=== PATIENT | male | born 1940 | race Caucasian/White ===

== ENCOUNTER → 2017-09-14 | Outpatient (CLI) | payer OTHER ==
[~2017-09-14] MED LIST: ALPR1 PO; DILT300 PO; GLIM4 PO; Keflex500 MG PO; LOSARTAN-HCTZ1 EAC1 PO; Metformin HCl1000 MG PO
== END ==
LOC: LAB 13:53 → LAB SHORT 13:53
DX: E11.621 Type 2 diabetes mellitus with foot ulcer (principal); M86.179 Other acute osteomyelitis, unspecified ankle and foot
CPT/HCPCS: 87070; 87075; 87147; 87205

== ENCOUNTER 2018-06-12 16:09 | Observation (INO) | payer OTHER ==
[~2018-06-12] VITALS: Ht 182.9 cm; Wt 90.7 kg
[~2018-06-12 16:09] MED LIST changes: +DILT180 PO; -DILT300 PO
[2018-06-12 16:37] LABS: BASOPHILS ABSOLUTE AUTO 0.02 K/mm3 (0.00-0.23); BASOPHILS PERCENT AUTO 0 % (0-2); EOSINOPHILS ABSOLUTE AUTO 0.17 K/mm3 (0.00-0.68); EOSINOPHILS PERCENT AUTO 2 % (0-6); Hematocrit 51.7 % (37.0-53.0); Hemoglobin 16.8 g/dL (13.5-17.5); IMMATURE GRAN ABSOLUTE AUTO 0.02 K/mm3 (0.00-0.10); IMMATURE GRAN PERCENT AUTO 0 % (0-1); LYMPHOCYTES ABSOLUTE AUTO 2.87 K/mm3 (0.84-5.20); LYMPHOCYTES PERCENT AUTO 34 % (21-46); MONOCYTES ABSOLUTE AUTO 0.65 K/mm3 (0.16-1.47); MONOCYTES PERCENT AUTO 8 % (4-13); Mean Corpuscular HGB Conc 32.5 g/dL (31.5-36.5); Mean Corpuscular Volume 89 fL (80-100); Mean Platelet Volume 9.9 fL (9.1-12.4); NEUTROPHILS ABSOLUTE AUTO 4.61 K/mm3 (1.96-9.15); NEUTROPHILS PERCENT AUTO 55 % (41-73); Platelet Count 241 K/mm3 (150-400); RDW Coefficient Variation 13.4 % (11.7-14.2); RDW Standard Deviation 43.8 fL (35.1-46.3); White Blood Cell Count 8.34 K/mm3 (4.00-11.30)
[2018-06-12 16:55] LABS: Alanine Aminotransfer (ALT/SGP 21 U/L (12-78); Albumin, Blood 3.9 g/dL (3.4-5.0); Alk Phos 86 U/L (50-136); Anion Gap 10 mmol/L (6-16); Aspartate Aminotrans (AST/SGOT 15 U/L (12-37); Bilirubin, Total 0.3 mg/dL (0.1-1.0); Blood Urea Nitrogen 27 mg/dL (8-24); Bun/Creatinine Ratio 16.3 (12.0-20.0); CO2, Blood 23 mmol/L (21-32); Calcium, Blood 8.9 mg/dL (8.5-10.1); Chloride, Blood 103 mmol/L (98-108); Creatinine, Blood 1.66 mg/dL (0.60-1.20); Globulin, Blood 4.1 g/dL (2.2-4.0); Glomerular Filtration Rate 43 (60-); Glucose, Blood 253 mg/dL (70-99); Sodium, Blood 136 mmol/L (136-145); Troponin I <0.015 ng/mL (0.000-0.040)
[2018-06-12 20:51] LABS: CPK Creatine Kinase 49 U/L (39-308); Troponin I <0.015 ng/mL (0.000-0.040)
[2018-06-13 02:45] LABS: Source, Urine Clean Catch
[2018-06-13 02:47] LABS: Bilirubin, Urine Neg (Neg); Blood, Urine 1+ (Neg); Glucose Qualitative, Urine 4+ (Neg); Ketones, Urine Neg (Neg); Leukocyte Esterase, Urine Neg (Neg); Nitrite, Urine Neg (Neg); Protein, Urine 2+ (Neg); Specific Gravity, Urine 1.015 (1.003-1.022); Urobilinogen, Urine NORM (Normal)
[2018-06-13 02:53] LABS: Appearance, Urine Clear (Clear); Color, Urine Yellow (P-Yellow)
[2018-06-13 02:54] LABS: Bacteria Not Seen /hpf; Red Blood Cells, Urine 0-2 /hpf (0-2); Squamous Epithelial Cells Not Seen /hpf (Few); White Blood Cells, Urine Not Seen /hpf (0-5)
--- NOTE | 2018-06-13 04:46 | NUR ---
SHIFT SUMMARY PT ADMITTED WITH HYPERTENSIVE URGENCY, B/P 180'S/80'S UPON ARRIVAL. ORAL APRESOLINE GIVEN, IV ANTIHYPERTENSIVES GIVEN IN THE ED. PT ALERT AND ORIENTED. UP WITH SBA AND FWW, HAS UNSTEADY GAIT. B/P THIS AM 180'S/90'S, PRN IV APRESOLINE GIVEN. PT HAS NOT SLEPT AT ALL DURING THE NIGHT. WILL CONTINUE TO MONITOR.
[2018-06-13 05:14] LABS: Hematocrit 48.4 % (37.0-53.0); Hemoglobin 15.9 g/dL (13.5-17.5); Mean Corpuscular HGB 28.6 pg (26.0-34.0); Mean Corpuscular HGB Conc 32.9 g/dL (31.5-36.5); Mean Corpuscular Volume 87 fL (80-100); Platelet Count 239 K/mm3 (150-400); RDW Coefficient Variation 13.5 % (11.7-14.2); RDW Standard Deviation 42.7 fL (35.1-46.3); Red Blood Cell Count 5.55 M/mm3 (4.30-5.90); White Blood Cell Count 8.99 K/mm3 (4.00-11.30)
[2018-06-13 05:41] LABS: CPK Creatine Kinase 57 U/L (39-308); Troponin I <0.015 ng/mL (0.000-0.040)
[2018-06-13 05:51] LABS: Albumin, Blood 3.5 g/dL (3.4-5.0); Bilirubin, Total 0.5 mg/dL (0.1-1.0); Bun/Creatinine Ratio 18.6 (12.0-20.0); Calcium, Blood 8.9 mg/dL (8.5-10.1); Creatinine, Blood 1.45 mg/dL (0.60-1.20); Globulin, Blood 3.5 g/dL (2.2-4.0); Potassium, Blood 3.5 mmol/L (3.5-5.5)
--- NOTE | 2018-06-13 10:51 | NUR ---
PATIENT DID NOT EAT BREAKFAST THIS SHIFT DUE TO BEING NPO AT THIS TIME.
--- NOTE | 2018-06-13 11:56 | NUR ---
DISCHARGE DISCHARGE MEDICATIONS AND INSTRUCTIONS EXPLAINED TO PATIENT AND FAMILY. THEY STATED UNDERSTANDING. IV REMOVED WITHOUT DIFFICULTY. BELONGINGS WITH PATIENT. PATIENT TRANSFERED TO PRIVATE VEHICLE VIA WHEELCHAIR.
[2018-06-13 12:58] LABS: CPK Creatine Kinase 60 U/L (39-308)
== END 2018-06-13 14:49 | disposition home or self-care (01) ==
LOC: ER 16:09 → MEDS 16:10 → ENPENDDIS 06-13 14:36 → MEDS 06-13 14:49
PROVIDERS: Emergency Medicine; ADMIT Internal Medicine
DX: I16.0 Hypertensive urgency (principal); R07.89 Other chest pain; E11.22 Type 2 diabetes mellitus with diabetic chronic kidney disease; I12.9 Hypertensive chronic kidney disease with stage 1 through stage 4 chronic kidney disease, or unspecified chronic kidney disease; N18.3 Chronic kidney disease, stage 3 (moderate); E66.9 Obesity, unspecified; F41.9 Anxiety disorder, unspecified; Z79.899 Other long term (current) drug therapy; Z68.27 Body mass index [BMI] 27.0-27.9, adult
CPT/HCPCS: 36415; 71046; 78452; 80053; 81001; 82550; 82947; 84484; 85025; 85027; 93005; 93010; 93017; 93306; 96374; 96375; 96376; 99285-25; A9500; G0378; J0360; J0706; J1650; J2785

== ENCOUNTER 2022-06-24 17:57 | Emergency (ER) | payer OTHER ==
[~2022-06-24] VITALS: Ht 182.9 cm; Wt 122.5 kg
[2022-06-24 18:30] LABS: BASOPHILS ABSOLUTE AUTO 0.03 K/mm3 (0.00-0.23); BASOPHILS PERCENT AUTO 0 % (0-2); EOSINOPHILS ABSOLUTE AUTO 0.29 K/mm3 (0.00-0.68); EOSINOPHILS PERCENT AUTO 4 % (0-6); Hematocrit 47.1 % (37.0-53.0); Hemoglobin 15.2 g/dL (13.5-17.5); IMMATURE GRAN ABSOLUTE AUTO 0.05 K/mm3 (0.00-0.10); IMMATURE GRAN PERCENT AUTO 1 % (0-1); LYMPHOCYTES ABSOLUTE AUTO 2.72 K/mm3 (0.84-5.20); LYMPHOCYTES PERCENT AUTO 35 % (21-46); MONOCYTES ABSOLUTE AUTO 0.62 K/mm3 (0.16-1.47); MONOCYTES PERCENT AUTO 8 % (4-13); Mean Corpuscular HGB 29.7 pg (26.0-34.0); Mean Corpuscular HGB Conc 32.3 g/dL (31.5-36.5); Mean Corpuscular Volume 92 fL (80-100); Mean Platelet Volume 10.3 fL (9.1-12.4); NEUTROPHILS ABSOLUTE AUTO 4.11 K/mm3 (1.96-9.15); NEUTROPHILS PERCENT AUTO 53 % (41-73); Platelet Count 183 K/mm3 (150-400); RDW Coefficient Variation 15.9 % (11.7-14.2); RDW Standard Deviation 53.9 fL (35.1-46.3); Red Blood Cell Count 5.12 M/mm3 (4.30-5.90); White Blood Cell Count 7.82 K/mm3 (4.00-11.30)
[2022-06-24 18:49] LABS: Albumin/Globulin Ratio 0.8 (0.8-1.8); Bilirubin, Total 0.6 mg/dL (0.1-1.0); Bun/Creatinine Ratio 15.8 (12.0-20.0); Calcium, Blood 8.7 mg/dL (8.5-10.1); Creatinine, Blood 1.71 mg/dL (0.60-1.20); Globulin, Blood 3.8 g/dL (2.2-4.0); Potassium, Blood 5.5 mmol/L (3.5-5.5); Total Protein, Blood 6.8 g/dL (6.4-8.2)
[2022-06-24] MEDS ORDERED: LOSA50 PO (20:26)
[2022-06-24] MEDS ORDERED: TAMSULOSIN HCL0.4 M1 PO (20:27)
[2022-06-24] MEDS ORDERED: FUROSEMIDE40 MG PO (20:27)
[2022-06-24] MEDS ORDERED: DILTIAZEM 24HR240 M3 PO (20:28)
[2022-06-24] MEDS ORDERED: BASAGLAR K100 UNIT/3 SC (20:28)
[2022-06-24] MEDS ORDERED: PIOGLITAZONE HC45 MG PO (20:29)
[2022-06-25] MEDS ORDERED: DOXY100 PO (16:51)
== END 2022-06-24 22:57 | disposition home or self-care (01) ==
LOC: ER 17:57
PROVIDERS: Physician Assistant
DX: R06.02 Shortness of breath (principal); R53.83 Other fatigue; E11.9 Type 2 diabetes mellitus without complications
CPT/HCPCS: 36415; 71046; 80053; 83880; 84484; 85025; 93005; 93010; 99285-25

== ENCOUNTER 2022-06-25 15:35 | Emergency (ER) | payer OTHER ==
[~2022-06-25] VITALS: Ht 182.9 cm; Wt 127.0 kg
[~2022-06-25 15:35] MED LIST changes: +BASAGLAR K100 UNIT/3 SC; +DILTIAZEM 24HR240 M3 PO; +FUROSEMIDE40 MG PO; +LOSA50 PO; +PIOGLITAZONE HC45 MG PO; +TAMSULOSIN HCL0.4 M1 PO
[2022-06-25] MEDS ORDERED: DOXY100 PO (16:51)
== END 2022-06-25 17:12 | disposition home or self-care (01) ==
LOC: ER 15:35
DX: J18.9 Pneumonia, unspecified organism (principal); E11.9 Type 2 diabetes mellitus without complications
CPT/HCPCS: 99283; A9270

== ENCOUNTER 2022-07-25 16:04 | Emergency (ER) | payer OTHER ==
[~2022-07-25] VITALS: Ht 182.9 cm; Wt 136.1 kg
[~2022-07-25 16:04] MED LIST changes: +DOXY100 PO
[2022-07-25 17:01] LABS: BASOPHILS ABSOLUTE AUTO 0.04 K/mm3 (0.00-0.23); BASOPHILS PERCENT AUTO 1 % (0-2); EOSINOPHILS ABSOLUTE AUTO 0.23 K/mm3 (0.00-0.68); EOSINOPHILS PERCENT AUTO 3 % (0-6); Hematocrit 46.9 % (37.0-53.0); Hemoglobin 14.9 g/dL (13.5-17.5); IMMATURE GRAN ABSOLUTE AUTO 0.04 K/mm3 (0.00-0.10); IMMATURE GRAN PERCENT AUTO 1 % (0-1); LYMPHOCYTES ABSOLUTE AUTO 2.23 K/mm3 (0.84-5.20); LYMPHOCYTES PERCENT AUTO 31 % (21-46); MONOCYTES ABSOLUTE AUTO 0.59 K/mm3 (0.16-1.47); MONOCYTES PERCENT AUTO 8 % (4-13); Mean Corpuscular HGB 29.3 pg (26.0-34.0); Mean Corpuscular HGB Conc 31.8 g/dL (31.5-36.5); Mean Corpuscular Volume 92 fL (80-100); Mean Platelet Volume 10.2 fL (9.1-12.4); NEUTROPHILS ABSOLUTE AUTO 4.19 K/mm3 (1.96-9.15); NEUTROPHILS PERCENT AUTO 57 % (41-73); Platelet Count 194 K/mm3 (150-400); RDW Coefficient Variation 15.6 % (11.7-14.2); RDW Standard Deviation 53.8 fL (35.1-46.3); Red Blood Cell Count 5.08 M/mm3 (4.30-5.90); White Blood Cell Count 7.32 K/mm3 (4.00-11.30)
[2022-07-25 17:28] LABS: Magnesium, Blood 2.2 mg/dL (1.6-2.4)
[2022-07-25 17:30] LABS: Albumin, Blood 2.9 g/dL (3.4-5.0); Albumin/Globulin Ratio 0.8 (0.8-1.8); Bilirubin, Total 0.4 mg/dL (0.1-1.0); Bun/Creatinine Ratio 18.8 (12.0-20.0); Calcium, Blood 8.6 mg/dL (8.5-10.1); Creatinine, Blood 1.81 mg/dL (0.60-1.20); Globulin, Blood 3.7 g/dL (2.2-4.0); Potassium, Blood 4.1 mmol/L (3.5-5.5); Total Protein, Blood 6.6 g/dL (6.4-8.2)
[2022-07-25 19:54] LABS: Source, Urine Clean Catch
[2022-07-25 19:58] LABS: Bilirubin, Urine Neg (Neg); Blood, Urine 1+ (Neg); Glucose Qualitative, Urine 3+ (Neg); Ketones, Urine Neg (Neg); Leukocyte Esterase, Urine Neg (Neg); Nitrite, Urine Neg (Neg); Protein, Urine 3+ (Neg); Urobilinogen, Urine NORM (Normal)
[2022-07-25 20:05] LABS: Appearance, Urine Clear (Clear); Color, Urine Yellow (P-Yellow)
[2022-07-25 20:07] LABS: Bacteria Rare /hpf; Red Blood Cells, Urine 0-2 /hpf (0-2); Squamous Epithelial Cells Rare /hpf (Few)
== END 2022-07-25 21:00 | disposition home or self-care (01) ==
LOC: ER 16:04
PROVIDERS: Physician Assistant
DX: I70.8 Atherosclerosis of other arteries (principal); E11.9 Type 2 diabetes mellitus without complications; Z79.899 Other long term (current) drug therapy; Z79.4 Long term (current) use of insulin
CPT/HCPCS: 71046; 71275; 80053; 81001; 83735; 85025; 93005; 93010; 99284-25; Q9967

== ENCOUNTER 2022-08-08 16:24 | Emergency (ER) | payer OTHER ==
[~2022-08-08] VITALS: Ht 182.9 cm; Wt 136.1 kg
[2022-08-08 17:08] LABS: BASOPHILS ABSOLUTE AUTO 0.03 K/mm3 (0.00-0.23); BASOPHILS PERCENT AUTO 0 % (0-2); EOSINOPHILS PERCENT AUTO 5 % (0-6); Hematocrit 43.7 % (37.0-53.0); Hemoglobin 14.4 g/dL (13.5-17.5); IMMATURE GRAN ABSOLUTE AUTO 0.04 K/mm3 (0.00-0.10); IMMATURE GRAN PERCENT AUTO 1 % (0-1); LYMPHOCYTES ABSOLUTE AUTO 2.09 K/mm3 (0.84-5.20); LYMPHOCYTES PERCENT AUTO 27 % (21-46); MONOCYTES ABSOLUTE AUTO 0.56 K/mm3 (0.16-1.47); MONOCYTES PERCENT AUTO 7 % (4-13); Mean Corpuscular HGB 30.1 pg (26.0-34.0); Mean Corpuscular Volume 91 fL (80-100); Mean Platelet Volume 10.2 fL (9.1-12.4); NEUTROPHILS ABSOLUTE AUTO 4.74 K/mm3 (1.96-9.15); NEUTROPHILS PERCENT AUTO 60 % (41-73); Platelet Count 199 K/mm3 (150-400); RDW Coefficient Variation 15.6 % (11.7-14.2); RDW Standard Deviation 52.3 fL (35.1-46.3); Red Blood Cell Count 4.79 M/mm3 (4.30-5.90); White Blood Cell Count 7.86 K/mm3 (4.00-11.30)
[2022-08-08 17:21] LABS: Albumin, Blood 3.2 g/dL (3.4-5.0); Albumin/Globulin Ratio 0.9 (0.8-1.8); Bilirubin, Total 0.3 mg/dL (0.1-1.0); Bun/Creatinine Ratio 17.9 (12.0-20.0); Creatinine, Blood 1.84 mg/dL (0.60-1.20); Globulin, Blood 3.5 g/dL (2.2-4.0); Potassium, Blood 3.6 mmol/L (3.5-5.5); Total Protein, Blood 6.7 g/dL (6.4-8.2)
[2022-08-08 18:30] VITALS: BP 199/74
== END 2022-08-08 20:12 | disposition home or self-care (01) ==
LOC: ER 16:24
PROVIDERS: Physician Assistant
DX: R60.0 Localized edema (principal); I89.0 Lymphedema, not elsewhere classified; E11.22 Type 2 diabetes mellitus with diabetic chronic kidney disease; N18.9 Chronic kidney disease, unspecified; E66.01 Morbid (severe) obesity due to excess calories; Z79.4 Long term (current) use of insulin; Z79.899 Other long term (current) drug therapy; Z68.41 Body mass index [BMI] 40.0-44.9, adult
CPT/HCPCS: 36415; 51702; 51798; 71046; 80053; 83880; 84484; 85025; 93005; 93010; 96374-59; 99284-25; J1940

== ENCOUNTER 2022-08-15 11:49 | Emergency (ER) | payer OTHER ==
[~2022-08-15] VITALS: Ht 182.9 cm; Wt 136.1 kg
[2022-08-15 12:40] VITALS: BP 153/70
[2022-08-15 15:27] LABS: Source, Urine Clean Catch
[2022-08-15 15:32] LABS: Bilirubin, Urine Neg (Neg); Blood, Urine 4+ (Neg); Glucose Qualitative, Urine 1+ (Neg); Ketones, Urine Neg (Neg); Leukocyte Esterase, Urine 3+ (Neg); Nitrite, Urine Neg (Neg); Protein, Urine 1+ (Neg); Specific Gravity, Urine 1.015 (1.003-1.022); Urobilinogen, Urine NORM (Normal)
[2022-08-15 16:15] LABS: Appearance, Urine Hazy (Clear); Color, Urine Pale Yellow (P-Yellow)
[2022-08-15 16:20] LABS: Red Blood Cells, Urine 0-2 /hpf (0-2); Squamous Epithelial Cells Rare /hpf (Few)
[2022-08-15 16:21] LABS: Bacteria Mod /hpf; Mucus Light (0-Heavy)
[2022-08-15] MEDS ORDERED: SULTRIDS PO (16:28)
== END 2022-08-15 16:49 | disposition home or self-care (01) ==
LOC: ER 11:49
PROVIDERS: Student in an Organized Health Care Education/Training Program
DX: T83.511A Infection and inflammatory reaction due to indwelling urethral catheter, initial encounter (principal); T83.84XA Pain due to genitourinary prosthetic devices, implants and grafts, initial encounter; N39.0 Urinary tract infection, site not specified; E11.22 Type 2 diabetes mellitus with diabetic chronic kidney disease; N18.9 Chronic kidney disease, unspecified; Y84.8 Other medical procedures as the cause of abnormal reaction of the patient, or of later complication, without mention of misadventure at the time of the procedure; Z79.4 Long term (current) use of insulin; Z79.899 Other long term (current) drug therapy
CPT/HCPCS: 51798; 81001; 87077; 87086; 87186; 99283; A9270

== ENCOUNTER → 2022-09-03 | Outpatient (CLI) | payer OTHER ==
[~2022-09-03] MED LIST changes: +SULTRIDS PO
[2022-09-03 16:46] LABS: BASOPHILS ABSOLUTE AUTO 0.03 K/mm3 (0.00-0.23); BASOPHILS PERCENT AUTO 0 % (0-2); EOSINOPHILS ABSOLUTE AUTO 0.18 K/mm3 (0.00-0.68); EOSINOPHILS PERCENT AUTO 2 % (0-6); Hematocrit 44.7 % (37.0-53.0); Hemoglobin 14.4 g/dL (13.5-17.5); IMMATURE GRAN ABSOLUTE AUTO 0.03 K/mm3 (0.00-0.10); IMMATURE GRAN PERCENT AUTO 0 % (0-1); LYMPHOCYTES ABSOLUTE AUTO 2.18 K/mm3 (0.84-5.20); LYMPHOCYTES PERCENT AUTO 29 % (21-46); MONOCYTES ABSOLUTE AUTO 0.56 K/mm3 (0.16-1.47); MONOCYTES PERCENT AUTO 7 % (4-13); Mean Corpuscular HGB 29.9 pg (26.0-34.0); Mean Corpuscular HGB Conc 32.2 g/dL (31.5-36.5); Mean Corpuscular Volume 93 fL (80-100); Mean Platelet Volume 10.4 fL (9.1-12.4); NEUTROPHILS ABSOLUTE AUTO 4.54 K/mm3 (1.96-9.15); NEUTROPHILS PERCENT AUTO 60 % (41-73); Platelet Count 193 K/mm3 (150-400); RDW Coefficient Variation 15.6 % (11.7-14.2); RDW Standard Deviation 53.4 fL (35.1-46.3); Red Blood Cell Count 4.81 M/mm3 (4.30-5.90); White Blood Cell Count 7.52 K/mm3 (4.00-11.30)
[2022-09-03 18:23] LABS: Alanine Aminotransfer (ALT/SGP 21 U/L (12-78); Albumin, Blood 3.4 g/dL (3.4-5.0); Albumin/Globulin Ratio 0.9 (0.8-1.8); Alk Phos 89 U/L (50-136); Anion Gap 5 mmol/L (6-16); Aspartate Aminotrans (AST/SGOT 14 U/L (12-37); Bilirubin, Total 0.3 mg/dL (0.1-1.0); Blood Urea Nitrogen 29 mg/dL (8-24); Bun/Creatinine Ratio 18.7 (12.0-20.0); CHOL/HDL RATIO 3.7; CO2, Blood 25 mmol/L (21-32); Calcium, Blood 9.2 mg/dL (8.5-10.1); Chloride, Blood 103 mmol/L (98-108); Cholesterol 191 mg/dL (50-200); Creatinine, Blood 1.55 mg/dL (0.60-1.20); Globulin, Blood 3.7 g/dL (2.2-4.0); Glomerular Filtration Rate 44 (60-); Glucose, Blood 140 mg/dL (70-99); HDL Cholesterol 52 mg/dL (>39); LDL/HDL RATIO 2.3; Low Density Lipoprotein Chol 121 mg/dL (0-110); Potassium, Blood 3.8 mmol/L (3.5-5.5); Sodium, Blood 133 mmol/L (136-145); Total Protein, Blood 7.1 g/dL (6.4-8.2); Triglycerides 88 mg/dL (30-160); Very Low Density Lipoprot Chol 18 mg/dL (6-32)
== END | disposition home or self-care (01) ==
LOC: LAB SHORT 15:10 → LAB 15:10
PROVIDERS: Family Medicine
DX: I10 Essential (primary) hypertension (principal); E11.9 Type 2 diabetes mellitus without complications
CPT/HCPCS: 80053; 80061; 83036; 85025

== ENCOUNTER 2022-11-04 08:27 | Observation (INO) | payer OTHER ==
[~2022-11-04] VITALS: Ht 182.9 cm; Wt 127.5 kg
[2022-11-04 09:03] LABS: BASOPHILS ABSOLUTE AUTO 0.02 K/mm3 (0.00-0.23); BASOPHILS PERCENT AUTO 0 % (0-2); EOSINOPHILS ABSOLUTE AUTO 0.19 K/mm3 (0.00-0.68); EOSINOPHILS PERCENT AUTO 2 % (0-6); Hematocrit 42.6 % (37.0-53.0); Hemoglobin 13.6 g/dL (13.5-17.5); IMMATURE GRAN ABSOLUTE AUTO 0.03 K/mm3 (0.00-0.10); IMMATURE GRAN PERCENT AUTO 0 % (0-1); LYMPHOCYTES ABSOLUTE AUTO 2.06 K/mm3 (0.84-5.20); LYMPHOCYTES PERCENT AUTO 25 % (21-46); MONOCYTES PERCENT AUTO 9 % (4-13); Mean Corpuscular HGB 29.2 pg (26.0-34.0); Mean Corpuscular HGB Conc 31.9 g/dL (31.5-36.5); Mean Corpuscular Volume 92 fL (80-100); Mean Platelet Volume 10.7 fL (9.1-12.4); NEUTROPHILS ABSOLUTE AUTO 5.18 K/mm3 (1.96-9.15); NEUTROPHILS PERCENT AUTO 63 % (41-73); Platelet Count 182 K/mm3 (150-400); RDW Standard Deviation 50.4 fL (35.1-46.3); Red Blood Cell Count 4.65 M/mm3 (4.30-5.90); White Blood Cell Count 8.18 K/mm3 (4.00-11.30)
[2022-11-04 09:16] LABS: Albumin, Blood 2.8 g/dL (3.4-5.0); Albumin/Globulin Ratio 0.8 (0.8-1.8); Bilirubin, Total 0.3 mg/dL (0.1-1.0); Bun/Creatinine Ratio 18.1 (12.0-20.0); Calcium, Blood 8.5 mg/dL (8.5-10.1); Creatinine, Blood 1.82 mg/dL (0.60-1.20); Globulin, Blood 3.4 g/dL (2.2-4.0); Potassium, Blood 3.6 mmol/L (3.5-5.5); Total Protein, Blood 6.2 g/dL (6.4-8.2)
[2022-11-04] MEDS ORDERED: POTA10T PO (12:21)
[2022-11-04] MEDS ORDERED: INSULANPEN SC (12:25)
[2022-11-04 13:34] LABS: Source, Urine Clean Catch
[2022-11-04 14:10] LABS: Bilirubin, Urine Neg (Neg); Blood, Urine 1+ (Neg); Glucose Qualitative, Urine 1+ (Neg); Ketones, Urine Neg (Neg); Leukocyte Esterase, Urine Neg (Neg); Nitrite, Urine Neg (Neg); Protein, Urine 3+ (Neg); Urobilinogen, Urine NORM (Normal)
[2022-11-04 14:45] LABS: Color, Urine Pale Yellow (P-Yellow)
[2022-11-04 14:46] LABS: Appearance, Urine Hazy (Clear)
[2022-11-04 14:47] LABS: Red Blood Cells, Urine 0-2 /hpf (0-2)
[2022-11-04 14:48] LABS: Amorphous Light (0-Heavy); Bacteria Mod /hpf; Mucus Mod (0-Heavy); Squamous Epithelial Cells Rare /hpf (Few)
[2022-11-04 15:07] VITALS: BP 149/61
--- NOTE | 2022-11-04 18:27 | NUR ---
PATIENT ADMITTED THIS AFTERNOON, A/OX4 AND ABLE TO TRANSFER WITH FWW AND 1 ASSIST TO BED. MUTLIPLE SKIN ISSUES INCLUDING PRESSURE SORES TO BUTTOCKS, PICS TAKEN AND PLACED ON CHART. VSS, ON RA. CONTINUOUT BIOX IN ROOM. CONTINENT AND USING URINAL TO VOID. DENIES ANY CP OR PRESSURE SINCE ADMIT. REPORTS INCREASE IN L SIDED WEAKNESS HAS RESOLVED AND HE FEELS HE IS AT HIS BASELINE. ACHS BLOOD SUGARS, COVERAGE PER SLIDING SCALE. COOPERATIVE WITH CARE AND ABLE TO MAKE NEEDS KNOWN.
[2022-11-04 19:35] VITALS: BP 176/62
[2022-11-04 21:48] VITALS: BP 175/68
[2022-11-04 21:49] VITALS: BP 125/75
[2022-11-05 02:28] VITALS: BP 175/54
--- NOTE | 2022-11-05 05:04 | NUR ---
SHIFT SUMMARY VSS, HTN NOTED BUT BELOW SET PERAMTERS OF >180 SBP. 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 PT SLEPT ON AND OFF T/O THE NIGHT. PT VOIDING W/ NO DIFFICULTY. NO BMS NOTED. MINIMAL PO INTAKE NOTED. PT TURNED Q2 AND EDUCATED ABOUT SKIN CARE FOR WOUND ON BUTTOX. NO CHANGES IN NEURO STATUS NOTED. PT STATES HE FEELS VERY WELL, STRONG, AND THAT HE IS HAPPY WITH HOW HE FEELS. NO ACUTE EVENTS T/O THE NIGHT. PLAN FOR PT TO BE EVALUATED TODAY AND POSSIBLE D/C. THE PAIENT IS CURRENTLY RESTING, IN NO DISTRESS, CALL LIGHT IN REACH
[2022-11-05 05:57] LABS: BASOPHILS ABSOLUTE AUTO 0.02 K/mm3 (0.00-0.23); BASOPHILS PERCENT AUTO 0 % (0-2); EOSINOPHILS ABSOLUTE AUTO 0.23 K/mm3 (0.00-0.68); EOSINOPHILS PERCENT AUTO 3 % (0-6); Hematocrit 40.5 % (37.0-53.0); IMMATURE GRAN ABSOLUTE AUTO 0.03 K/mm3 (0.00-0.10); IMMATURE GRAN PERCENT AUTO 0 % (0-1); LYMPHOCYTES ABSOLUTE AUTO 1.89 K/mm3 (0.84-5.20); LYMPHOCYTES PERCENT AUTO 27 % (21-46); MONOCYTES ABSOLUTE AUTO 0.64 K/mm3 (0.16-1.47); MONOCYTES PERCENT AUTO 9 % (4-13); Mean Corpuscular HGB 29.3 pg (26.0-34.0); Mean Corpuscular HGB Conc 32.1 g/dL (31.5-36.5); Mean Corpuscular Volume 91 fL (80-100); Mean Platelet Volume 10.3 fL (9.1-12.4); NEUTROPHILS ABSOLUTE AUTO 4.23 K/mm3 (1.96-9.15); NEUTROPHILS PERCENT AUTO 60 % (41-73); Platelet Count 172 K/mm3 (150-400); RDW Coefficient Variation 14.6 % (11.7-14.2); RDW Standard Deviation 49.6 fL (35.1-46.3); Red Blood Cell Count 4.43 M/mm3 (4.30-5.90); White Blood Cell Count 7.04 K/mm3 (4.00-11.30)
[2022-11-05 06:18] LABS: Albumin, Blood 2.6 g/dL (3.4-5.0); Albumin/Globulin Ratio 0.8 (0.8-1.8); Bilirubin, Total 0.3 mg/dL (0.1-1.0); Bun/Creatinine Ratio 17.3 (12.0-20.0); Calcium, Blood 8.3 mg/dL (8.5-10.1); Creatinine, Blood 1.68 mg/dL (0.60-1.20); Globulin, Blood 3.2 g/dL (2.2-4.0); Potassium, Blood 3.8 mmol/L (3.5-5.5); Total Protein, Blood 5.8 g/dL (6.4-8.2)
[2022-11-05 08:27] VITALS: BP 112/82
--- NOTE | 2022-11-05 14:05 | NUR ---
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 BARRIER CREAM AND BORDERED FOAM APPLIED. PT REPORTS SLEEPING IN RECLINER AT HOME. HE REPORTS A DIFFICULT TIME CLEANING AFTER BM. EDUCATION ON BIDET, USE OF A BARRIER CREAM AT HOME, A PRESSURE RELIEF SURFACE SUCH A ROHO OR WAFFLE CUSHION AND OFFLOADING PROVIDED. PT VERBALIZED UNDERSTANDING.
--- NOTE | 2022-11-05 14:56 | NUR ---
SHIFT SUMMARY: PATIENT IS A&OX4 BUT HAS MUMBLED SPEECH. VS ARE WNL AND IS ON RA. PATIENT IS A SBA WITH FWW AND GAIT BELT TO STAND/PIVIOT. WOUND CARE WAS CONSULTED ON PATIENTS COCCYX WOUND AND HAS A DRESSING IN PLACE THAT IS C/D/I. PHYSICAL THERAPY WORKED WITH PATIENT TODAY AND TOLERATED IT WELL. NO CHANGES IN NEURO STATUS NOTED. PATIENT USES URNAL AND CALLS APPROPRIATELY FOR WHEN HE NEEDS HELP. SON WHO IS HIS CAREGIVER WAS AT BEDSIDE FOR MAJORITY OF THE SHIFT TODAY. HE IS TOLERATING PO INTAKE AND IS PASSING GAS. PATIENT IS CURRENTLY RESTING IN BED, AND IN NO DISTRESS WITH CALL LIGHT IN REACH. THE PLAN IS TO COORDINATE HOME HEALTH AND WOUND CARE FOR AT HOME THEN POSSIBLY DISCHARGE TOMORROW IF STILL APPROPRIATE.
--- NOTE | 2022-11-05 15:02 | NUR ---
PATIENT AND PATIENTS SON WERE EDUCATED ON IGNITION SOURCES AND RISK OF INJURY WHEN OXYGEN IS IN USE. BOTH VERBALIZED UNDERSTANDING OF EDUCATION AND HAD NO FURTHER QUESTIONS AT THIS TIME.
[2022-11-05 17:15] VITALS: BP 175/55
[2022-11-05 19:17] VITALS: BP 158/59
--- NOTE | 2022-11-06 04:12 | NUR ---
SHIFT SUMMARY. SHIFT HAS BEEN UNREMARKABLE. NO COMLAINTS OF PAIN. AOX3-4, PLEASANT, COOPERATIVE WITH CARE. MUMBLES WHEN SPEAKING. IS SATTING WELL ON ROOM AIR WHILE AWAKE, OCCASIONALLY DIPS DOWN INTO LOW 80S WHILE SLEEPING FOR WHICH I APPLIED 2 L 02 AFTER WHICH TIME HIS SATURATIONS HAVE REMAINED UP. PT HAS SLEPT THROUGH MOST OF EVENING AND MORNING. CALLS APPROPRIATELY. BED LOCKED IN LOWEST POSITION. CALL LIGHT LEFT WITHIN REACH.
[2022-11-06 05:46] VITALS: BP 133/59
[2022-11-06 05:51] LABS: BASOPHILS ABSOLUTE AUTO 0.03 K/mm3 (0.00-0.23); BASOPHILS PERCENT AUTO 0 % (0-2); EOSINOPHILS ABSOLUTE AUTO 0.26 K/mm3 (0.00-0.68); EOSINOPHILS PERCENT AUTO 4 % (0-6); Hematocrit 39.3 % (37.0-53.0); Hemoglobin 12.7 g/dL (13.5-17.5); IMMATURE GRAN ABSOLUTE AUTO 0.03 K/mm3 (0.00-0.10); IMMATURE GRAN PERCENT AUTO 0 % (0-1); LYMPHOCYTES ABSOLUTE AUTO 1.89 K/mm3 (0.84-5.20); LYMPHOCYTES PERCENT AUTO 27 % (21-46); MONOCYTES ABSOLUTE AUTO 0.68 K/mm3 (0.16-1.47); MONOCYTES PERCENT AUTO 10 % (4-13); Mean Corpuscular HGB 29.8 pg (26.0-34.0); Mean Corpuscular HGB Conc 32.3 g/dL (31.5-36.5); Mean Corpuscular Volume 92 fL (80-100); Mean Platelet Volume 10.3 fL (9.1-12.4); NEUTROPHILS ABSOLUTE AUTO 4.14 K/mm3 (1.96-9.15); NEUTROPHILS PERCENT AUTO 59 % (41-73); Platelet Count 178 K/mm3 (150-400); RDW Coefficient Variation 14.8 % (11.7-14.2); RDW Standard Deviation 50.3 fL (35.1-46.3); Red Blood Cell Count 4.26 M/mm3 (4.30-5.90); White Blood Cell Count 7.03 K/mm3 (4.00-11.30)
[2022-11-06 06:21] LABS: Calcium, Blood 8.3 mg/dL (8.5-10.1); Creatinine, Blood 1.65 mg/dL (0.60-1.20); Potassium, Blood 3.8 mmol/L (3.5-5.5)
[2022-11-06 07:54] VITALS: BP 161/68
[2022-11-06] MEDS ORDERED: AMOXIL PO (13:37)
--- NOTE | 2022-11-06 15:54 | NUR ---
DISCHARGE SUMMARY PATIENT WITH NO ACUTE ISSUES TODAY. SONS AT BEDSIDE. PATIENT STATES HE IS ANXIOUS TO GO HOME. PATIENT MEDICATION AND EDUCATION PACKET PRINTED AND REVIEWED WITH PATIENT AND SON. ALL QUESTIONS ANSWERED. CONSENTS SIGNED. PATIENT LEFT FLOOR VIA WHEELCHAIR WITH LUIS ENRIQUE HENDERSON AT 1417, TO [facility] WHERE SON WILL TRANSPORT PATIENT HOME VIA PRIVATE VEHICLE.
[2022-11-06 20:06] LABS: HEMOGLOBIN A1C 6.9 % (4.8-5.6)
== END 2022-11-06 14:19 | disposition home health service (06) ==
LOC: ER 08:27 → MEDS 08:28
PROVIDERS: Student in an Organized Health Care Education/Training Program; ADMIT Hospitalist
DX: G45.9 Transient cerebral ischemic attack, unspecified (principal); R07.89 Other chest pain; R60.0 Localized edema; L89.329 Pressure ulcer of left buttock, unspecified stage; I13.0 Hypertensive heart and chronic kidney disease with heart failure and stage 1 through stage 4 chronic kidney disease, or unspecified chronic kidney disease; E11.22 Type 2 diabetes mellitus with diabetic chronic kidney disease; N18.30 Chronic kidney disease, stage 3 unspecified; I50.30 Unspecified diastolic (congestive) heart failure; I48.91 Unspecified atrial fibrillation; Z79.4 Long term (current) use of insulin; Z79.899 Other long term (current) drug therapy
CPT/HCPCS: 36415; 70450; 80048; 80053; 81001; 82947; 83036; 84484; 85025; 93005; 93010; 94762; 96372; 96374; 97116; 97161; 97166; 97530; 99285-25; A9270; G0378; J1644; J1815; J1940

== ENCOUNTER → 2022-11-13 | Outpatient (CLI) | payer OTHER ==
[~2022-11-13] MED LIST changes: +AMOXIL PO; +INSULANPEN SC; +POTA10T PO
[2022-11-13 15:35] LABS: BASOPHILS ABSOLUTE AUTO 0.02 K/mm3 (0.00-0.23); BASOPHILS PERCENT AUTO 0 % (0-2); EOSINOPHILS ABSOLUTE AUTO 0.28 K/mm3 (0.00-0.68); EOSINOPHILS PERCENT AUTO 3 % (0-6); Hematocrit 43.8 % (37.0-53.0); IMMATURE GRAN ABSOLUTE AUTO 0.04 K/mm3 (0.00-0.10); IMMATURE GRAN PERCENT AUTO 0 % (0-1); LYMPHOCYTES ABSOLUTE AUTO 2.59 K/mm3 (0.84-5.20); LYMPHOCYTES PERCENT AUTO 29 % (21-46); MONOCYTES ABSOLUTE AUTO 0.64 K/mm3 (0.16-1.47); MONOCYTES PERCENT AUTO 7 % (4-13); Mean Corpuscular HGB 29.5 pg (26.0-34.0); Mean Corpuscular Volume 92 fL (80-100); Mean Platelet Volume 10.7 fL (9.1-12.4); NEUTROPHILS ABSOLUTE AUTO 5.36 K/mm3 (1.96-9.15); NEUTROPHILS PERCENT AUTO 60 % (41-73); Platelet Count 197 K/mm3 (150-400); RDW Coefficient Variation 14.7 % (11.7-14.2); RDW Standard Deviation 50.6 fL (35.1-46.3); Red Blood Cell Count 4.74 M/mm3 (4.30-5.90); White Blood Cell Count 8.93 K/mm3 (4.00-11.30)
[2022-11-13 21:07] LABS: Albumin, Blood 3.2 g/dL (3.4-5.0); Albumin/Globulin Ratio 0.9 (0.8-1.8); Bilirubin, Total 0.3 mg/dL (0.1-1.0); Bun/Creatinine Ratio 18.7 (12.0-20.0); Calcium, Blood 8.9 mg/dL (8.5-10.1); Creatinine, Blood 2.09 mg/dL (0.60-1.20); Globulin, Blood 3.7 g/dL (2.2-4.0); Total Protein, Blood 6.9 g/dL (6.4-8.2)
== END | disposition home or self-care (01) ==
LOC: LAB SHORT 14:26 → LAB 14:26
PROVIDERS: Family Medicine
DX: I10 Essential (primary) hypertension (principal)
CPT/HCPCS: 80053; 85025

== ENCOUNTER 2023-01-25 11:05 | Inpatient (IN) | payer OTHER ==
[~2023-01-25] VITALS: Ht 182.9 cm; Wt 122.5 kg
[2023-01-25 12:04] LABS: BASOPHILS ABSOLUTE AUTO 0.04 K/mm3 (0.00-0.23); BASOPHILS PERCENT AUTO 0 % (0-2); EOSINOPHILS ABSOLUTE AUTO 0.11 K/mm3 (0.00-0.68); EOSINOPHILS PERCENT AUTO 1 % (0-6); Hematocrit 38.5 % (37.0-53.0); Hemoglobin 12.7 g/dL (13.5-17.5); IMMATURE GRAN ABSOLUTE AUTO 0.18 K/mm3 (0.00-0.10); IMMATURE GRAN PERCENT AUTO 1 % (0-1); LYMPHOCYTES ABSOLUTE AUTO 1.43 K/mm3 (0.84-5.20); LYMPHOCYTES PERCENT AUTO 8 % (21-46); MONOCYTES ABSOLUTE AUTO 1.08 K/mm3 (0.16-1.47); MONOCYTES PERCENT AUTO 6 % (4-13); Mean Corpuscular HGB 27.9 pg (26.0-34.0); Mean Corpuscular Volume 85 fL (80-100); Mean Platelet Volume 9.6 fL (9.1-12.4); NEUTROPHILS ABSOLUTE AUTO 15.04 K/mm3 (1.96-9.15); NEUTROPHILS PERCENT AUTO 84 % (41-73); Platelet Count 313 K/mm3 (150-400); RDW Standard Deviation 43.6 fL (35.1-46.3); Red Blood Cell Count 4.55 M/mm3 (4.30-5.90); White Blood Cell Count 17.88 K/mm3 (4.00-11.30)
[2023-01-25 12:30] LABS: Albumin, Blood 2.2 g/dL (3.4-5.0); Albumin/Globulin Ratio 0.5 (0.8-1.8); Bilirubin, Total 0.5 mg/dL (0.1-1.0); Bun/Creatinine Ratio 10.8 (12.0-20.0); Calcium, Blood 8.8 mg/dL (8.5-10.1); Creatinine, Blood 1.67 mg/dL (0.60-1.20); Globulin, Blood 4.6 g/dL (2.2-4.0); Potassium, Blood 3.7 mmol/L (3.5-5.5); Total Protein, Blood 6.8 g/dL (6.4-8.2)
[2023-01-25] MEDS ORDERED: KLOR-CON M1010 MEQ PO (13:18)
[2023-01-25] MEDS ORDERED: INSULANPEN SC (13:21)
[2023-01-25] MEDS ORDERED: Aspir 8181 MG PO (13:23)
[2023-01-25] MEDS ORDERED: ASPI325 PO (14:00)
[2023-01-25 15:52] LABS: Source, Urine Clean Catch
[2023-01-25 15:59] LABS: Appearance, Urine Clear (Clear); Bilirubin, Urine Neg (Neg); Blood, Urine 4+ (Neg); Color, Urine Yellow (P-Yellow); Glucose Qualitative, Urine 4+ (Neg); Ketones, Urine Neg (Neg); Leukocyte Esterase, Urine Neg (Neg); Nitrite, Urine Neg (Neg); Protein, Urine 3+ (Neg); Urobilinogen, Urine NORM (Normal)
[2023-01-25 16:06] LABS: Granular Casts 0-2 /lpf (0)
[2023-01-25 16:07] LABS: Amorphous Light (0-Heavy); Bacteria Rare /hpf; Squamous Epithelial Cells Rare /hpf (Few); White Blood Cells, Urine 0-2 /hpf (0-5)
[2023-01-25 17:06] VITALS: BP 177/69
--- NOTE | 2023-01-25 18:32 | NUR ---
SHIFT SUMMARY PT A NEW ADMIT FROM THE ED TODAY. ACCOMPANIED BY HIS DAUGHTER AND SON, HIS DAUGHTER IS A NURSE. PT ORIENTED TO THE ROOM. PICTURES OF HIS WOUND TAKEN AND PLACED IN THE CHART. POULTRY BONER CALLED AND CONSULTED THIS SHIFT. WOUND DEBRIDEMENT SCHEDULED FOR THE AM AND THE PT IS TO GO NPO TONIGHT AT MIDNIGHT. PT BLADDER SCANNED AND HE DID HAVE RETENTION AFTER VOIDING IN THE URINAL. PT'S BLOOD PRESSURE WAS ALSO HIGH AND WAS GIVEN MEDICATIONS PER THE EMAR. CALL LIGHT WITHIN REACH, BED IN THE LOWEST POSITION. WILL REPORT TO ONCOMING NURSE.
[2023-01-25 19:42] VITALS: BP 180/67
[2023-01-26] VITALS (16 sets, daily range): BP systolic 131–176; BP diastolic 49–95
[2023-01-26 04:45] LABS: Source, Urine Foley catheter
[2023-01-26 04:49] LABS: Bilirubin, Urine Neg (Neg); Blood, Urine 5+ (Neg); Glucose Qualitative, Urine 4+ (Neg); Ketones, Urine 1+ (Neg); Leukocyte Esterase, Urine 1+ (Neg); Nitrite, Urine Neg (Neg); Protein, Urine 3+ (Neg); Specific Gravity, Urine 1.015 (1.003-1.022); Urobilinogen, Urine NORM (Normal)
[2023-01-26 04:57] LABS: Appearance, Urine Clear (Clear); Color, Urine Yellow (P-Yellow)
[2023-01-26 04:58] LABS: Bacteria Few /hpf; Squamous Epithelial Cells Not Seen /hpf (Few)
[2023-01-26 05:28] LABS: BASOPHILS ABSOLUTE AUTO 0.04 K/mm3 (0.00-0.23); BASOPHILS PERCENT AUTO 0 % (0-2); EOSINOPHILS ABSOLUTE AUTO 0.24 K/mm3 (0.00-0.68); EOSINOPHILS PERCENT AUTO 2 % (0-6); Hematocrit 36.5 % (37.0-53.0); IMMATURE GRAN ABSOLUTE AUTO 0.13 K/mm3 (0.00-0.10); IMMATURE GRAN PERCENT AUTO 1 % (0-1); LYMPHOCYTES ABSOLUTE AUTO 1.47 K/mm3 (0.84-5.20); LYMPHOCYTES PERCENT AUTO 10 % (21-46); MONOCYTES ABSOLUTE AUTO 0.82 K/mm3 (0.16-1.47); MONOCYTES PERCENT AUTO 5 % (4-13); Mean Corpuscular HGB 27.6 pg (26.0-34.0); Mean Corpuscular HGB Conc 32.9 g/dL (31.5-36.5); Mean Corpuscular Volume 84 fL (80-100); Mean Platelet Volume 9.6 fL (9.1-12.4); NEUTROPHILS ABSOLUTE AUTO 12.77 K/mm3 (1.96-9.15); NEUTROPHILS PERCENT AUTO 83 % (41-73); Platelet Count 302 K/mm3 (150-400); RDW Standard Deviation 43.2 fL (35.1-46.3); Red Blood Cell Count 4.34 M/mm3 (4.30-5.90); White Blood Cell Count 15.47 K/mm3 (4.00-11.30)
[2023-01-26 05:57] LABS: Albumin, Blood 1.9 g/dL (3.4-5.0); Albumin/Globulin Ratio 0.4 (0.8-1.8); Bilirubin, Total 0.5 mg/dL (0.1-1.0); Calcium, Blood 8.5 mg/dL (8.5-10.1); Creatinine, Blood 1.46 mg/dL (0.60-1.20); Globulin, Blood 4.4 g/dL (2.2-4.0); Magnesium, Blood 2.2 mg/dL (1.6-2.4); Phosphorus, Blood 2.3 mg/dL (2.5-4.9); Potassium, Blood 3.4 mmol/L (3.5-5.5); Total Protein, Blood 6.3 g/dL (6.4-8.2)
--- NOTE | 2023-01-26 06:45 | NUR ---
NOC SHIFT SUMMARY: PATIENT ADMITTED WITH FAILURE TO THRIVE. 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 DEBRIDEMENT AND BIOPSY TO BE DONE TODAY. PATIETN HAS BEEN NPO SINCE MIDNIGHT. A&O X4. NO C/O PAIN. ON UNASYN. PATIENT WAS REQUESTING IMODIUM FOR LOOSE STOOLS. HE STATES HE TAKES THIS AT HOME.
--- NOTE | 2023-01-26 11:25 | NUR ---
PT TO DAY SURGERY FOR ULCER ON HIS RIGHT FOOT. CHART AND HISTORY REVIEWED. PLAN OF CARE DISCUSSED WITH PT.
--- NOTE | 2023-01-26 11:30 | NUR ---
20G IV IN PT RIGHT AC, FLUSHES WELL.
--- NOTE | 2023-01-26 16:38 | NUR ---
NOTE: THIS NURSE NOTICED SOME BLOOD TO THE RIGHT HEEL POST SURGERY. CALLED THE SURGEON, DR. RUIZ, AND HE SAID TO REINFORCE WITH ABD AND TAYA BANDAGE. NO OTHER ORDERS AT THIS TIME.
--- NOTE | 2023-01-26 17:41 | NUR ---
SHIFT SUMMARY PT AOX4, ON BEDREST. I AND D COMPLETED TODAY, PT TOLERATED IT WELL. SMALL AMOUNT OF BLOOD AT THE SURGICAL SITE, SEE NOTE PRIOR. PT STATES HE DOES NOT NEED PAIN MEDICATION AT THIS TIME, ASKED HIM MULTIPLE TIMES. THREE LOOSE STOOLS THIS SHIFT, MEDICATION ADMINISTERED PER THE EMAR. DAUGHTER AND SON AT THE BS THIS SHIFT. POTASSIUM REPLACED THIS SHIFT. HYDRALYZINE ADMINISTERED THIS EVENING FOR HIGH BLOOD PRESSURE. CALL LIGHT WITHIN REACH, BED IN THE LOWEST POSITION. WILL REPORT TO ONCOMING NURSE.
[2023-01-27 03:31] VITALS: BP 172/62
[2023-01-27 05:44] LABS: BASOPHILS ABSOLUTE AUTO 0.03 K/mm3 (0.00-0.23); BASOPHILS PERCENT AUTO 0 % (0-2); EOSINOPHILS ABSOLUTE AUTO 0.33 K/mm3 (0.00-0.68); EOSINOPHILS PERCENT AUTO 2 % (0-6); Hematocrit 35.3 % (37.0-53.0); Hemoglobin 11.5 g/dL (13.5-17.5); IMMATURE GRAN ABSOLUTE AUTO 0.14 K/mm3 (0.00-0.10); IMMATURE GRAN PERCENT AUTO 1 % (0-1); LYMPHOCYTES ABSOLUTE AUTO 1.77 K/mm3 (0.84-5.20); LYMPHOCYTES PERCENT AUTO 12 % (21-46); MONOCYTES ABSOLUTE AUTO 1.01 K/mm3 (0.16-1.47); MONOCYTES PERCENT AUTO 7 % (4-13); Mean Corpuscular HGB 27.5 pg (26.0-34.0); Mean Corpuscular HGB Conc 32.6 g/dL (31.5-36.5); Mean Corpuscular Volume 84 fL (80-100); NEUTROPHILS ABSOLUTE AUTO 11.73 K/mm3 (1.96-9.15); NEUTROPHILS PERCENT AUTO 78 % (41-73); Platelet Count 323 K/mm3 (150-400); RDW Coefficient Variation 14.3 % (11.7-14.2); Red Blood Cell Count 4.18 M/mm3 (4.30-5.90); White Blood Cell Count 15.01 K/mm3 (4.00-11.30)
[2023-01-27 06:29] LABS: Albumin, Blood 1.4 g/dL (3.4-5.0); Anion Gap 14 mmol/L (6-16); Blood Urea Nitrogen 11 mg/dL (8-24); Bun/Creatinine Ratio 10.4 (12.0-20.0); CO2, Blood 19 mmol/L (21-32); Chloride, Blood 102 mmol/L (98-108); Creatinine, Blood 1.06 mg/dL (0.60-1.20); Glomerular Filtration Rate 70 (60-); Glucose, Blood 214 mg/dL (70-99); Magnesium, Blood 2.1 mg/dL (1.6-2.4); Phosphorus, Blood 2.8 mg/dL (2.5-4.9); Potassium, Blood 3.6 mmol/L (3.5-5.5); Sodium, Blood 135 mmol/L (136-145)
[2023-01-27 07:18] VITALS: BP 178/66
--- NOTE | 2023-01-27 07:37 | NUR ---
NOC SHIFT SUMMARY: DIABETIC FOOT ULCER TO RIGHT FOOT. DEBRIDEMENT YESTERDAY. SURGICAL DRESSING IN PLACE. BLOOD SUGAR CHECKS AC&HS. TURN Q2H. SACRAL DRESSING IN PLACE. A&O X4. DAUGHTER INVOLVED IN CARE. SHE IS AN RN.
[2023-01-27 15:44] VITALS: BP 182/72
--- NOTE | 2023-01-27 17:35 | NUR ---
THE PATIENT IA A&O X4, PLEASENT TO VISIT WITH AND FOLLOWS COMMANDS, THE PATIENT HAS HAD A BEDBATH THIS SHIFT AND A BM. THE PATIENT'S FAMILY HAS VISITED TWICE TODAY, TALKING TO THE PATIENT ABOUT WHEN HE GETS TO GO HOME. THE PATIENT HAS SLEPT OFF AND ON THIS SHIFT AND IS RESTING AT THIS TIME. I WILL CONTINUE TO MONITOR.
[2023-01-27 19:01] VITALS: BP 188/71
[2023-01-28 04:22] VITALS: BP 164/62
--- NOTE | 2023-01-28 04:53 | NUR ---
NOC SHIFT SUMMARY: NO EVENTS OVERNIGHT. CONTINUES ON UNASYN. RIGHT DIABETIC FOOT ULCER. SURGICALLY WRAPPED. NO C/O PAIN. CSM INTACT TO RIGHT FOOT. SWALLOWS PILLS WHOLE.
[2023-01-28 05:41] LABS: BASOPHILS ABSOLUTE AUTO 0.03 K/mm3 (0.00-0.23); BASOPHILS PERCENT AUTO 0 % (0-2); EOSINOPHILS ABSOLUTE AUTO 0.45 K/mm3 (0.00-0.68); EOSINOPHILS PERCENT AUTO 3 % (0-6); Hematocrit 36.8 % (37.0-53.0); Hemoglobin 11.7 g/dL (13.5-17.5); IMMATURE GRAN ABSOLUTE AUTO 0.18 K/mm3 (0.00-0.10); IMMATURE GRAN PERCENT AUTO 1 % (0-1); LYMPHOCYTES ABSOLUTE AUTO 1.62 K/mm3 (0.84-5.20); LYMPHOCYTES PERCENT AUTO 12 % (21-46); MONOCYTES ABSOLUTE AUTO 0.86 K/mm3 (0.16-1.47); MONOCYTES PERCENT AUTO 6 % (4-13); Mean Corpuscular HGB 27.4 pg (26.0-34.0); Mean Corpuscular HGB Conc 31.8 g/dL (31.5-36.5); Mean Corpuscular Volume 86 fL (80-100); Mean Platelet Volume 9.9 fL (9.1-12.4); NEUTROPHILS ABSOLUTE AUTO 10.88 K/mm3 (1.96-9.15); NEUTROPHILS PERCENT AUTO 78 % (41-73); Platelet Count 352 K/mm3 (150-400); RDW Coefficient Variation 14.4 % (11.7-14.2); RDW Standard Deviation 45.1 fL (35.1-46.3); Red Blood Cell Count 4.27 M/mm3 (4.30-5.90); White Blood Cell Count 14.02 K/mm3 (4.00-11.30)
[2023-01-28 06:03] LABS: Albumin, Blood 1.8 g/dL (3.4-5.0); Anion Gap 5 mmol/L (6-16); Blood Urea Nitrogen 18 mg/dL (8-24); Bun/Creatinine Ratio 12.2 (12.0-20.0); CO2, Blood 26 mmol/L (21-32); Calcium, Blood 8.5 mg/dL (8.5-10.1); Chloride, Blood 101 mmol/L (98-108); Creatinine, Blood 1.47 mg/dL (0.60-1.20); Glomerular Filtration Rate 47 (60-); Glucose, Blood 292 mg/dL (70-99); Magnesium, Blood 2.2 mg/dL (1.6-2.4); Phosphorus, Blood 2.7 mg/dL (2.5-4.9); Sodium, Blood 132 mmol/L (136-145)
[2023-01-28 07:34] VITALS: BP 190/66
[2023-01-28 10:44] VITALS: BP 189/65
[2023-01-28 13:54] VITALS: BP 176/75
--- NOTE | 2023-01-28 14:19 | NUR ---
CALLED DR OATES- PT HAD A SPEECH THERAPY EVAL DIET CHANGED TO SOFT BITE SIZED, WITH ADA AND CARDIAC HEART HEALTH RESTRICTIONS. DIET CHANGED TO ADA, CALLED TO CLARIFY DIET ORDER, SHOULD THE PT STILL BE ON ADA AND CARDIAC OR JUST ADA? HE NEEDS SOFT BITE SIZED HE HAS NO TEETH. LEFT A MESSAGE WITH SLAT BASKET MAKER ABEBE WHO ANSWERED THE CALL. ALSO SPOKE ABOUT PT HIGH BP, AND BG. WAAITING FOR AA CALL BACK.
--- NOTE | 2023-01-28 14:41 | NUR ---
SPOKE TO DR OATES- SOFT BITE SIZED DIET OK WITH ADA AND LOW SODIUM. PARAMETERS WILL BE CHANGED ON IV HYDRALIZINE TO ALLOW FOR TREATMENT OF HTN. HUMALOG CHANGED TO AC/HS FROM AC HIGH CS.
[2023-01-28 17:00] VITALS: BP 157/74
--- NOTE | 2023-01-28 18:38 | NUR ---
SHIFT SUMMARY- PT HAS HAD NO ACUTE CHANGE T/O THE SHIFT. DENIES THE NEED FOR PAIN MEDICATION. WOUND DRESSING CHANGED PER MD ORDER. PLAN IS FOR WOUND VAC PLACEMENT PRIOR TO DISCHARGE DEPENDING ON THE RESULT OF THE BONE BIOPSY. PT IN BED, CALL LIGHT IN REACH NO S&S OF DISTRESS NOTED. BP WAS ELEVATED BUT IMPROVED WITH MEDICATION. 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 NO STOOL TODAY, HOWEVER LAXITIVES WERE HELD THE PT C/O DIARRHEA AND IS ON BANATROL FLAKES TO CONTROL LOOSE STOOLS. REED CATH IN PLACE FOR RETENTION, PATENT AND DRAINING TO GRAVITY. PT IN BED, CALL LIGHT IN REACH NO S&S OF DISTRESS NOTED.
[2023-01-28 19:12] VITALS: BP 161/84
[2023-01-29] VITALS (7 sets, daily range): BP systolic 157–195; BP diastolic 66–74
--- NOTE | 2023-01-29 05:29 | NUR ---
PT A/O VSS RIGHT FT DRESSED AND IS POSITIVE FOR MRSA, NO PAIN, PT STATED CANT FEEL HARDLY ANYTHING, PT LAYING COMFORTABLY IN BED REED DRAINNING ASESSMENT DONE NO CHANGE IN CONDITION, VERY PLEASENT PT TO SPEAK WITH, CALLS APPROPRIATLY AND MAKES NEEDS KNOWN
[2023-01-29 06:03] LABS: BASOPHILS ABSOLUTE AUTO 0.07 K/mm3 (0.00-0.23); BASOPHILS PERCENT AUTO 0 % (0-2); EOSINOPHILS ABSOLUTE AUTO 0.47 K/mm3 (0.00-0.68); EOSINOPHILS PERCENT AUTO 3 % (0-6); Hematocrit 35.8 % (37.0-53.0); Hemoglobin 11.6 g/dL (13.5-17.5); IMMATURE GRAN ABSOLUTE AUTO 0.37 K/mm3 (0.00-0.10); IMMATURE GRAN PERCENT AUTO 2 % (0-1); LYMPHOCYTES ABSOLUTE AUTO 2.19 K/mm3 (0.84-5.20); LYMPHOCYTES PERCENT AUTO 14 % (21-46); MONOCYTES ABSOLUTE AUTO 0.96 K/mm3 (0.16-1.47); MONOCYTES PERCENT AUTO 6 % (4-13); Mean Corpuscular HGB 27.5 pg (26.0-34.0); Mean Corpuscular HGB Conc 32.4 g/dL (31.5-36.5); Mean Corpuscular Volume 85 fL (80-100); NEUTROPHILS ABSOLUTE AUTO 11.61 K/mm3 (1.96-9.15); NEUTROPHILS PERCENT AUTO 74 % (41-73); Platelet Count 342 K/mm3 (150-400); RDW Coefficient Variation 14.4 % (11.7-14.2); RDW Standard Deviation 44.3 fL (35.1-46.3); Red Blood Cell Count 4.22 M/mm3 (4.30-5.90); White Blood Cell Count 15.67 K/mm3 (4.00-11.30)
[2023-01-29 06:39] LABS: Albumin, Blood 1.8 g/dL (3.4-5.0); Anion Gap 5 mmol/L (6-16); Blood Urea Nitrogen 21 mg/dL (8-24); Bun/Creatinine Ratio 14.6 (12.0-20.0); CO2, Blood 25 mmol/L (21-32); Calcium, Blood 8.3 mg/dL (8.5-10.1); Chloride, Blood 103 mmol/L (98-108); Creatinine, Blood 1.44 mg/dL (0.60-1.20); Glomerular Filtration Rate 48 (60-); Glucose, Blood 303 mg/dL (70-99); Phosphorus, Blood 2.4 mg/dL (2.5-4.9); Potassium, Blood 4.1 mmol/L (3.5-5.5); Sodium, Blood 133 mmol/L (136-145)
--- NOTE | 2023-01-29 17:25 | NUR ---
SPOKE TO DR RUIZ THIS EVENING- HE IS UNABLE TO COME SEE THE PT TONIGHT BUT PLANS TO BE IN TO TALK WITH HIM TOMORROW ABOUT OPTIONS MOVING FORWARD WITH CARE. ORDERS RECIEVED FOR NWB ON THE RLE AT THIS TIME. PT CONTINUES TO BE BED BOUND AT THIS TIME. PT IS RESISTENT TO REPOSITIONING, AND IS A 2PA WITH ROL AND CHANGE.
--- NOTE | 2023-01-29 19:36 | NUR ---
SSHIFT SUMMARY- PT ALERT AND ORIENTED, COOPERATIVE WITH CARE. PT HAS DENIED THE NEED FOR PAIN MEDS T/O THE SHIFT. DR RUIZ HAS NOT COME TO SEE THE PT. THE PT IS AWARE THAT THE CULTURE CAME BACK POSITIVE FOR OSTEOMEYOLITIS. DR SILVA SPOKE TO HIM ABOUT WHAT OPTIONS DR RUIZ MAY HAVE FOR HIM. WT BEARING PRECAUTIONS ORDERED. PT IN BED CALL LIGHT IN REACH NO S&S OF DISTRESS NOTED AT THE TIME OF BEDSIDE REPORT.
[2023-01-30 01:27] VITALS: BP 163/67
[2023-01-30 07:21] VITALS: BP 165/70
--- NOTE | 2023-01-30 07:28 | NUR ---
SHIFT SUMMARY PT BP ELEVATED OVERNIGHT REQUIRING PRN HYDRALAZINE WHICH HAD VERY MINIMAL EFFECT. NO OTHER EVENTS.
[2023-01-30 08:19] LABS: BASOPHILS ABSOLUTE AUTO 0.07 K/mm3 (0.00-0.23); BASOPHILS PERCENT AUTO 1 % (0-2); EOSINOPHILS ABSOLUTE AUTO 0.53 K/mm3 (0.00-0.68); EOSINOPHILS PERCENT AUTO 4 % (0-6); Hematocrit 36.8 % (37.0-53.0); Hemoglobin 11.9 g/dL (13.5-17.5); IMMATURE GRAN ABSOLUTE AUTO 0.38 K/mm3 (0.00-0.10); IMMATURE GRAN PERCENT AUTO 3 % (0-1); LYMPHOCYTES ABSOLUTE AUTO 1.89 K/mm3 (0.84-5.20); LYMPHOCYTES PERCENT AUTO 13 % (21-46); MONOCYTES ABSOLUTE AUTO 0.94 K/mm3 (0.16-1.47); MONOCYTES PERCENT AUTO 6 % (4-13); Mean Corpuscular HGB 27.5 pg (26.0-34.0); Mean Corpuscular HGB Conc 32.3 g/dL (31.5-36.5); Mean Corpuscular Volume 85 fL (80-100); Mean Platelet Volume 9.8 fL (9.1-12.4); NEUTROPHILS ABSOLUTE AUTO 11.33 K/mm3 (1.96-9.15); NEUTROPHILS PERCENT AUTO 75 % (41-73); Platelet Count 366 K/mm3 (150-400); RDW Coefficient Variation 14.3 % (11.7-14.2); RDW Standard Deviation 44.5 fL (35.1-46.3); Red Blood Cell Count 4.32 M/mm3 (4.30-5.90); White Blood Cell Count 15.14 K/mm3 (4.00-11.30)
[2023-01-30 08:35] LABS: Vancomycin, Trough 15.6 ug/mL (5.0-10.0)
[2023-01-30 08:45] LABS: Albumin, Blood 1.8 g/dL (3.4-5.0); Anion Gap 6 mmol/L (6-16); Blood Urea Nitrogen 18 mg/dL (8-24); Bun/Creatinine Ratio 12.6 (12.0-20.0); CO2, Blood 26 mmol/L (21-32); Calcium, Blood 8.3 mg/dL (8.5-10.1); Chloride, Blood 103 mmol/L (98-108); Creatinine, Blood 1.43 mg/dL (0.60-1.20); Glomerular Filtration Rate 49 (60-); Glucose, Blood 221 mg/dL (70-99); Phosphorus, Blood 2.7 mg/dL (2.5-4.9); Sodium, Blood 135 mmol/L (136-145)
[2023-01-30 15:27] VITALS: BP 187/66
[2023-01-30 18:02] VITALS: BP 171/72
--- NOTE | 2023-01-30 18:30 | NUR ---
SHIFT SUMMARY- PT HAS HAD NO ACUTE CHANGE T/O THE DAY. PLAN IS FOR THE PT TO BE SEEN BY DR LIZETH STAFFORD TOMORROW AND GO IN FOR A R BKA. PT AGREED TO THE PROCEDURE. IV ABX ARE NOT ENOUGH PER DR RUIZ. PT TO BE NPO AT MIDNIGHT EXCEPT FOR MEDS. PT IN BED, CALL LIGHT IN REACH NO S&S OF DISTRESS. MEDICATED PRN FOR HTN WITH HYDRALIZINE.
[2023-01-30 19:23] VITALS: BP 184/69
[2023-01-31] VITALS (18 sets, daily range): BP systolic 106–182; BP diastolic 64–111
[2023-01-31 05:01] LABS: BASOPHILS ABSOLUTE AUTO 0.06 K/mm3 (0.00-0.23); BASOPHILS PERCENT AUTO 0 % (0-2); EOSINOPHILS ABSOLUTE AUTO 0.43 K/mm3 (0.00-0.68); EOSINOPHILS PERCENT AUTO 3 % (0-6); Hematocrit 37.9 % (37.0-53.0); Hemoglobin 12.1 g/dL (13.5-17.5); IMMATURE GRAN ABSOLUTE AUTO 0.44 K/mm3 (0.00-0.10); IMMATURE GRAN PERCENT AUTO 3 % (0-1); LYMPHOCYTES ABSOLUTE AUTO 1.75 K/mm3 (0.84-5.20); LYMPHOCYTES PERCENT AUTO 13 % (21-46); MONOCYTES ABSOLUTE AUTO 0.94 K/mm3 (0.16-1.47); MONOCYTES PERCENT AUTO 7 % (4-13); Mean Corpuscular HGB 27.3 pg (26.0-34.0); Mean Corpuscular HGB Conc 31.9 g/dL (31.5-36.5); Mean Corpuscular Volume 86 fL (80-100); Mean Platelet Volume 9.8 fL (9.1-12.4); NEUTROPHILS ABSOLUTE AUTO 9.95 K/mm3 (1.96-9.15); NEUTROPHILS PERCENT AUTO 73 % (41-73); Platelet Count 348 K/mm3 (150-400); RDW Coefficient Variation 14.5 % (11.7-14.2); RDW Standard Deviation 45.1 fL (35.1-46.3); Red Blood Cell Count 4.43 M/mm3 (4.30-5.90); White Blood Cell Count 13.57 K/mm3 (4.00-11.30)
--- NOTE | 2023-01-31 05:10 | NUR ---
SHIFT SUMMARY A/O PT VERY PLEASENT AWARE OF PROCEDURE FOR THE MORNING. VERY COOPERATIVE AND MAKES NEEDS KNOWN. DR STAFFORD CAME IN TO HAVE CONCENT SIGNED AND EXPLAIN PROCEDURE. WHEN I SPOKE WITH PT ALONE HE BECAME TEARY EYED ABOUT LOOSING HIS FOOT, BUT UNDERSTANDS THE CONSEQUENCES OF WHAT WOULD HAPPEN IF HE DIDNT. PT C/O BACK PAIN TO BUTTOCKS WHERE HE HAS A BED SORE, AFTER PLEADING WITH PT HE DECIDED HE WOULD ALLOW US TO TURN HIM, I ALSO PLACED A PROTECTIVE DRESSING TO EACH BUTTCHEEK AND COVERED WITH MEPILEX, PT LAYING COMFORTABLE IN BED
[2023-01-31 05:55] LABS: Albumin, Blood 1.8 g/dL (3.4-5.0); Anion Gap 6 mmol/L (6-16); Blood Urea Nitrogen 22 mg/dL (8-24); Bun/Creatinine Ratio 14.8 (12.0-20.0); CO2, Blood 26 mmol/L (21-32); Calcium, Blood 8.5 mg/dL (8.5-10.1); Chloride, Blood 101 mmol/L (98-108); Creatinine, Blood 1.49 mg/dL (0.60-1.20); Glomerular Filtration Rate 46 (60-); Glucose, Blood 309 mg/dL (70-99); Magnesium, Blood 2.3 mg/dL (1.6-2.4); Phosphorus, Blood 3.4 mg/dL (2.5-4.9); Potassium, Blood 4.3 mmol/L (3.5-5.5); Sodium, Blood 133 mmol/L (136-145)
--- NOTE | 2023-01-31 16:36 | NUR ---
PT BROUGHT DOWN TO PACU FROM MEDICAL FLOOR TO BE MADE READY FOR SURGERY. NPO STATUS VERIFIED, VSS ON RA, PT BELONGINGS LEFT IN ROOM, 1L LR TKO CONNECTED TO RIGHT WRIST IV. CONSENT,PINK SHEET, AND ACP CONSENT VERIFIED. WILL REPORT TO CIRCULATING RN.
--- NOTE | 2023-01-31 19:27 | NUR ---
SHIFT SUMMARY PT A/OX3. FOLLOWS DIRECTIONS. ABLE TO MAKE NEEDS KNOWN WHEN PROMPTED. PT TO HAVE R BKA--REPORTING NO PAIN. PT INCONT OF BOWEL WITH SEVERAL LOOSE STOOLS TODAY. HELD SOFTNERS THIS MORNING. REED IN PLACE, PATENT AND DRAINING TO GRAVITY. SPOKE WITH DR LEE---INSULIN ORDER CHANGED TO Q6 WHILE NPO; INSTRUCTED TO GIVE HS DOSING. PT PLEASANT AND COOPERATIVE. WENT TO SURGERY APROX 1600 AND RETURNED AT 1845. REPORT RCVD FROM PACU TO THIS RN--UPDATED ONCOMING NURSE WITH SURGERY DETAILS. PT ALERT UPON RETURN.
--- NOTE | 2023-01-31 23:22 | NUR ---
REPORT RECEIVED PT ARRIVED FROM OR A/O VSS MINIMAL PAIN SINCE HE WAS JUST MEDICATED. DAUGHTER HERE WITH FAMILY TO VISIT. NEW IV STARTED TO LEFT HAND,
[2023-02-01 02:36] VITALS: BP 165/62
--- NOTE | 2023-02-01 05:08 | NUR ---
2300 PT IN PAIN, MEDS ORDERED PER DR. LOCKWOOD VSS, REENFORCED THE NEED FOR O2 PT CONT TO DESAT IN THE HIGH 80S OFF O2. PT NOW ON 2 L NC AND DOING WELL.
--- NOTE | 2023-02-01 07:13 | NUR ---
PT MEDICATED FOR PAIN, VSS PT ON O2 3L 97%
[2023-02-01 07:44] VITALS: BP 143/66
[2023-02-01 07:45] VITALS: BP 143/66
[2023-02-01 08:47] LABS: BASOPHILS ABSOLUTE AUTO 0.06 K/mm3 (0.00-0.23); BASOPHILS PERCENT AUTO 0 % (0-2); EOSINOPHILS ABSOLUTE AUTO 0.39 K/mm3 (0.00-0.68); EOSINOPHILS PERCENT AUTO 3 % (0-6); Hematocrit 40.4 % (37.0-53.0); Hemoglobin 12.5 g/dL (13.5-17.5); IMMATURE GRAN ABSOLUTE AUTO 0.36 K/mm3 (0.00-0.10); IMMATURE GRAN PERCENT AUTO 2 % (0-1); LYMPHOCYTES ABSOLUTE AUTO 1.67 K/mm3 (0.84-5.20); LYMPHOCYTES PERCENT AUTO 11 % (21-46); MONOCYTES ABSOLUTE AUTO 0.92 K/mm3 (0.16-1.47); MONOCYTES PERCENT AUTO 6 % (4-13); Mean Corpuscular HGB 27.1 pg (26.0-34.0); Mean Corpuscular HGB Conc 30.9 g/dL (31.5-36.5); Mean Corpuscular Volume 88 fL (80-100); Mean Platelet Volume 9.9 fL (9.1-12.4); NEUTROPHILS ABSOLUTE AUTO 11.68 K/mm3 (1.96-9.15); NEUTROPHILS PERCENT AUTO 77 % (41-73); Platelet Count 380 K/mm3 (150-400); RDW Coefficient Variation 14.6 % (11.7-14.2); RDW Standard Deviation 46.6 fL (35.1-46.3); Red Blood Cell Count 4.61 M/mm3 (4.30-5.90); White Blood Cell Count 15.08 K/mm3 (4.00-11.30)
[2023-02-01 08:55] LABS: Vancomycin, Trough 20.4 ug/mL (5.0-10.0)
[2023-02-01 09:05] LABS: Albumin, Blood 2.1 g/dL (3.4-5.0); Albumin/Globulin Ratio 0.5 (0.8-1.8); Bilirubin, Total 0.3 mg/dL (0.1-1.0); Bun/Creatinine Ratio 12.7 (12.0-20.0); Calcium, Blood 8.5 mg/dL (8.5-10.1); Creatinine, Blood 1.58 mg/dL (0.60-1.20); Globulin, Blood 4.6 g/dL (2.2-4.0); Potassium, Blood 4.7 mmol/L (3.5-5.5); Total Protein, Blood 6.7 g/dL (6.4-8.2)
--- NOTE | 2023-02-01 13:39 | NUR ---
AN 2000 FOR 02/01/23 MED OF TRANEXAMIC WAS FOUND IN PATIENT CHART THIS MORNING. CALLED PHARMACY THEY STATED THAT THE MEDICATION IS NO LONGER VIABLE AND TO CONTACT THE SURGEON TO SEE IF MEDICATION SHOULD STILL BE ADMINISTERED. CONTACTED DR. LIZETH STAFFORD AND CONFIRMED THAT SHE WANTED THE PATIENT TO RECIEVE THE MEDICATION. CONTACTED PHARMACY, RECIEVED THE MEDICATION AND ADMINISTERED TO THE PATIENT.
--- NOTE | 2023-02-01 15:16 | NUR ---
PAIN: UPON REASSESSMENT OF PAIN, PT HAD A DIFFICULT TIME RATING IT FROM A SCALE 1-10. HE STATES THAT HE CAN STILL FEEL HIS TOES IN THE FOOT THAT GOT AMPUTATED AND STATES THAT HE WILL GET A JABBING/PIN/SHARP PAIN THAT COMES AND GOES, AND WHEN IT HAPPENS IT IS A 8/10. I MASSAGED THE PATIENT'S RIGHT LEG AND HE STATED IT FELT GOOD.
[2023-02-01 16:16] VITALS: BP 143/53
--- NOTE | 2023-02-01 18:41 | NUR ---
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 HE HAS BEEN IN BED ALL DAY, PAIN HAS BEEN MANAGEABLE, MOSTLY COMPLAINS OF PHANTOM PAIN/SENSATION. HE HAS BEEN FATIGUED NAPPING THROUGHOUT THE DAY, EASILY TO AWAKEN. FLUID AND FOOD INTAKE HAS BEEN ADEQUATE, ALONG WITH URINE OUTPUT VIA REED. AWAITING PT AND OT EVALUATION. PT IN BED, IN LOWEST POSITION, CALL LIGHT WITHIN REACH, NO SIGNS OR SYMPTOMS OF DISTRESS. PLAN OF CARE ONGOING.
[2023-02-01 19:22] VITALS: BP 160/66
--- NOTE | 2023-02-02 01:14 | NUR ---
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 PT CAN MAKE NEEDS KNOWN AND FALLS BACK ASLEEP EASILY
--- NOTE | 2023-02-02 04:33 | NUR ---
PT LAYING QUIETLY IN BED SEEMS TIRED AND WITHDRAWN. STATES HE HAS NO PAIN BUT LEFT LEG IS HAVING SPASMS. PT DENIES WANTING ANY MEDICATION AND WOULD JUST LIKE TO SLEEP. BRIANNA DRAINING
[2023-02-02 04:59] VITALS: BP 152/56
[2023-02-02 05:25] LABS: BASOPHILS ABSOLUTE AUTO 0.04 K/mm3 (0.00-0.23); BASOPHILS PERCENT AUTO 0 % (0-2); EOSINOPHILS ABSOLUTE AUTO 0.35 K/mm3 (0.00-0.68); EOSINOPHILS PERCENT AUTO 3 % (0-6); Hematocrit 36.7 % (37.0-53.0); Hemoglobin 11.5 g/dL (13.5-17.5); IMMATURE GRAN ABSOLUTE AUTO 0.29 K/mm3 (0.00-0.10); IMMATURE GRAN PERCENT AUTO 3 % (0-1); LYMPHOCYTES ABSOLUTE AUTO 1.75 K/mm3 (0.84-5.20); LYMPHOCYTES PERCENT AUTO 15 % (21-46); MONOCYTES ABSOLUTE AUTO 1.07 K/mm3 (0.16-1.47); MONOCYTES PERCENT AUTO 9 % (4-13); Mean Corpuscular HGB 27.3 pg (26.0-34.0); Mean Corpuscular HGB Conc 31.3 g/dL (31.5-36.5); Mean Corpuscular Volume 87 fL (80-100); Mean Platelet Volume 9.9 fL (9.1-12.4); NEUTROPHILS ABSOLUTE AUTO 8.25 K/mm3 (1.96-9.15); NEUTROPHILS PERCENT AUTO 70 % (41-73); Platelet Count 336 K/mm3 (150-400); RDW Coefficient Variation 14.7 % (11.7-14.2); RDW Standard Deviation 47.2 fL (35.1-46.3); Red Blood Cell Count 4.21 M/mm3 (4.30-5.90); White Blood Cell Count 11.75 K/mm3 (4.00-11.30)
[2023-02-02 05:50] LABS: Albumin, Blood 1.9 g/dL (3.4-5.0); Albumin/Globulin Ratio 0.4 (0.8-1.8); Bilirubin, Total 0.3 mg/dL (0.1-1.0); Calcium, Blood 8.1 mg/dL (8.5-10.1); Creatinine, Blood 1.64 mg/dL (0.60-1.20); Globulin, Blood 4.4 g/dL (2.2-4.0); Potassium, Blood 4.6 mmol/L (3.5-5.5); Total Protein, Blood 6.3 g/dL (6.4-8.2)
[2023-02-02 07:50] VITALS: BP 160/67
[2023-02-02 16:25] VITALS: BP 148/61
--- NOTE | 2023-02-02 18:42 | NUR ---
SUMMARY- AAOX4. X1-2 ASSIST IN BED. PT SAT ON EDGE OF BED THIS SHIFT. PT MOVED TO ROOM 25 FROM 29 AFTER PT/OT REC LIFT ROOM. PAIN WELL CONTROLLED W/EMAR PAIN MEDS.
[2023-02-02 20:45] VITALS: BP 183/51
--- NOTE | 2023-02-03 03:46 | NUR ---
PT A&O X4, COOPERATIVE WITH CARE. NO ACUTE OVERNIGHT EVENTS. PT USES A WALKER AT [facility]. CURRENTLY NO WEIGHT BARING ON THE RIGHT SIDE. MEPLIEX IN PLACE ON COCCYX AND BUTT CHEEKS. PT HAS BKA THAT WAS DONE ON 01-31. ROOM AIR/NO TELE. PT DENIES ANY S/SX OF DISCOMFORT. DRESSING IS C/D/I. PT COMPLAINS OF PHONITIM LIMB PAIN. WILL TREAT PER EMAR. REED IN PLACE, DRAINING DARK YELLOW URINE. BED ALRAM IS ON WITH BED IN LOWEST POSITION WITH CALL LIGHT WITHIN REACH. WILL CONTINUE TO MONIOTOR UNTIL END OF SHIFT.
[2023-02-03 03:58] VITALS: BP 168/59
[2023-02-03 07:48] VITALS: BP 172/57
[2023-02-03 09:19] LABS: BASOPHILS ABSOLUTE AUTO 0.04 K/mm3 (0.00-0.23); BASOPHILS PERCENT AUTO 0 % (0-2); EOSINOPHILS ABSOLUTE AUTO 0.33 K/mm3 (0.00-0.68); EOSINOPHILS PERCENT AUTO 3 % (0-6); Hematocrit 35.5 % (37.0-53.0); Hemoglobin 11.3 g/dL (13.5-17.5); IMMATURE GRAN ABSOLUTE AUTO 0.29 K/mm3 (0.00-0.10); IMMATURE GRAN PERCENT AUTO 2 % (0-1); LYMPHOCYTES ABSOLUTE AUTO 2.25 K/mm3 (0.84-5.20); LYMPHOCYTES PERCENT AUTO 19 % (21-46); MONOCYTES ABSOLUTE AUTO 0.95 K/mm3 (0.16-1.47); MONOCYTES PERCENT AUTO 8 % (4-13); Mean Corpuscular HGB 27.4 pg (26.0-34.0); Mean Corpuscular HGB Conc 31.8 g/dL (31.5-36.5); Mean Corpuscular Volume 86 fL (80-100); Mean Platelet Volume 9.8 fL (9.1-12.4); NEUTROPHILS ABSOLUTE AUTO 8.11 K/mm3 (1.96-9.15); NEUTROPHILS PERCENT AUTO 68 % (41-73); Platelet Count 354 K/mm3 (150-400); RDW Coefficient Variation 14.6 % (11.7-14.2); RDW Standard Deviation 45.5 fL (35.1-46.3); Red Blood Cell Count 4.13 M/mm3 (4.30-5.90); White Blood Cell Count 11.97 K/mm3 (4.00-11.30)
[2023-02-03 09:47] LABS: Albumin/Globulin Ratio 0.5 (0.8-1.8); Bilirubin, Total 0.2 mg/dL (0.1-1.0); Bun/Creatinine Ratio 12.6 (12.0-20.0); Calcium, Blood 8.7 mg/dL (8.5-10.1); Creatinine, Blood 1.74 mg/dL (0.60-1.20); Globulin, Blood 4.3 g/dL (2.2-4.0); Potassium, Blood 4.5 mmol/L (3.5-5.5); Total Protein, Blood 6.3 g/dL (6.4-8.2)
[2023-02-03 09:48] LABS: Vancomycin, Random 20.7 ug/mL
[2023-02-03 12:46] VITALS: BP 190/67
[2023-02-03 13:22] VITALS: BP 176/59
[2023-02-03 16:58] VITALS: BP 170/68
--- NOTE | 2023-02-03 19:37 | NUR ---
SHIFT SUMMARY PATIENT WITH SOME PHANTOM PAIN, MEDICATED PER EMAR WITH RELIEF. BED ALARM ON, CALL LIGHT IN REACH. PATIENT DOES NOT CALL OFTEN. NO ACUTE EVENTS DURING SHIFT.
[2023-02-03 19:40] VITALS: BP 150/61
--- NOTE | 2023-02-04 04:44 | NUR ---
SHIFT SUMMARY PT SLEEPING MOST OF SHIFT WITH RESPIRATIONS EVEN AND UNLABORED. PT IS AROUSABLE AND ANSWERS APPROPRIATELY. PT PAIN ASSESED WITH NO COMPLAINTS. PT IS COOPERATIVE WITH CARE. CATHETER IS PATENT AND DRAINING TO GRAVITY. BED IS LOCKED IN THE LOWEST POSITION WITH CALL LIGHT IN REACH. NO S/S OF DISTRESS NOTED AT THIS TIME.
[2023-02-04 04:50] VITALS: BP 152/70
[2023-02-04 05:19] LABS: BASOPHILS ABSOLUTE AUTO 0.05 K/mm3 (0.00-0.23); BASOPHILS PERCENT AUTO 1 % (0-2); EOSINOPHILS ABSOLUTE AUTO 0.37 K/mm3 (0.00-0.68); EOSINOPHILS PERCENT AUTO 4 % (0-6); Hemoglobin 11.3 g/dL (13.5-17.5); IMMATURE GRAN ABSOLUTE AUTO 0.32 K/mm3 (0.00-0.10); IMMATURE GRAN PERCENT AUTO 3 % (0-1); LYMPHOCYTES ABSOLUTE AUTO 2.06 K/mm3 (0.84-5.20); LYMPHOCYTES PERCENT AUTO 20 % (21-46); MONOCYTES ABSOLUTE AUTO 0.91 K/mm3 (0.16-1.47); MONOCYTES PERCENT AUTO 9 % (4-13); Mean Corpuscular HGB 27.4 pg (26.0-34.0); Mean Corpuscular HGB Conc 32.3 g/dL (31.5-36.5); Mean Corpuscular Volume 85 fL (80-100); Mean Platelet Volume 9.8 fL (9.1-12.4); NEUTROPHILS ABSOLUTE AUTO 6.43 K/mm3 (1.96-9.15); NEUTROPHILS PERCENT AUTO 63 % (41-73); Platelet Count 349 K/mm3 (150-400); RDW Coefficient Variation 14.6 % (11.7-14.2); RDW Standard Deviation 45.6 fL (35.1-46.3); Red Blood Cell Count 4.12 M/mm3 (4.30-5.90); White Blood Cell Count 10.14 K/mm3 (4.00-11.30)
[2023-02-04 05:53] LABS: Albumin, Blood 1.9 g/dL (3.4-5.0); Albumin/Globulin Ratio 0.4 (0.8-1.8); Bilirubin, Total 0.2 mg/dL (0.1-1.0); Bun/Creatinine Ratio 16.2 (12.0-20.0); Calcium, Blood 8.7 mg/dL (8.5-10.1); Creatinine, Blood 1.73 mg/dL (0.60-1.20); Globulin, Blood 4.4 g/dL (2.2-4.0); Potassium, Blood 4.6 mmol/L (3.5-5.5); Total Protein, Blood 6.3 g/dL (6.4-8.2)
[2023-02-04 08:02] VITALS: BP 178/73
[2023-02-04] MEDS ORDERED: GABA300 PO (11:55)
[2023-02-04] MEDS ORDERED: HUMALOG KW100 UNIT/1 (11:56)
[2023-02-04] MEDS ORDERED: HUMALOG KW100 UNIT/1 SC (11:57)
[2023-02-04] MEDS ORDERED: SPIR50 PO (11:58)
[2023-02-04 15:04] VITALS: BP 168/61
--- NOTE | 2023-02-04 20:28 | NUR ---
SHIFT SUMMARY PATIENT WITH PAIN TODAY, MEDICATED PER EMAR. SWELLING TO RLE DECREASED TODAY. TRIAL REMOVAL OF REED CATHETER FAILED, PATIENT WITH OVER 800ML IN BLADDER POST VOID. REED REINSERTED AND TOLERATED WELL. BED IN LOW POSITION. CALL LIGHT IN REACH. PATIENT CALLS APPROPRIATELY.
[2023-02-04 21:03] VITALS: BP 157/54
--- NOTE | 2023-02-05 04:18 | NUR ---
SHIFT SUMMERY, PT RSTING IN BED. PT VERY COOPERATIVE. PT ALERT AND ORIENTED BUT ALITTLE SLEEPY. PT GIVEN HS MEDS AND CGS TAKEN. PT BACK TO SLEEP AT 0000 PT HAD MEDS DUE MEDS GIVEN AND PT AGAIN FELL BACK TO SLEEP. CALL LIGHT IN REACH .
[2023-02-05 05:15] VITALS: BP 122/56
[2023-02-05 05:43] LABS: BASOPHILS ABSOLUTE AUTO 0.07 K/mm3 (0.00-0.23); BASOPHILS PERCENT AUTO 1 % (0-2); EOSINOPHILS ABSOLUTE AUTO 0.41 K/mm3 (0.00-0.68); EOSINOPHILS PERCENT AUTO 4 % (0-6); Hematocrit 36.4 % (37.0-53.0); Hemoglobin 11.7 g/dL (13.5-17.5); IMMATURE GRAN ABSOLUTE AUTO 0.26 K/mm3 (0.00-0.10); IMMATURE GRAN PERCENT AUTO 2 % (0-1); LYMPHOCYTES ABSOLUTE AUTO 2.41 K/mm3 (0.84-5.20); LYMPHOCYTES PERCENT AUTO 23 % (21-46); MONOCYTES ABSOLUTE AUTO 0.88 K/mm3 (0.16-1.47); MONOCYTES PERCENT AUTO 8 % (4-13); Mean Corpuscular HGB 27.9 pg (26.0-34.0); Mean Corpuscular HGB Conc 32.1 g/dL (31.5-36.5); Mean Corpuscular Volume 87 fL (80-100); Mean Platelet Volume 9.9 fL (9.1-12.4); NEUTROPHILS PERCENT AUTO 62 % (41-73); Platelet Count 370 K/mm3 (150-400); RDW Coefficient Variation 14.7 % (11.7-14.2); RDW Standard Deviation 47.2 fL (35.1-46.3); Red Blood Cell Count 4.19 M/mm3 (4.30-5.90); White Blood Cell Count 10.73 K/mm3 (4.00-11.30)
[2023-02-05 06:15] LABS: Alanine Aminotransfer (ALT/SGP 44 U/L (12-78); Albumin/Globulin Ratio 0.5 (0.8-1.8); Alk Phos 112 U/L (50-136); Anion Gap 5 mmol/L (6-16); Aspartate Aminotrans (AST/SGOT 28 U/L (12-37); Bilirubin, Total 0.3 mg/dL (0.1-1.0); Blood Urea Nitrogen 30 mg/dL (8-24); Bun/Creatinine Ratio 16.5 (12.0-20.0); CO2, Blood 28 mmol/L (21-32); Calcium, Blood 8.8 mg/dL (8.5-10.1); Chloride, Blood 100 mmol/L (98-108); Creatinine, Blood 1.82 mg/dL (0.60-1.20); Globulin, Blood 4.4 g/dL (2.2-4.0); Glomerular Filtration Rate 36 (60-); Glucose, Blood 253 mg/dL (70-99); Potassium, Blood 4.6 mmol/L (3.5-5.5); Sodium, Blood 133 mmol/L (136-145); Total Protein, Blood 6.4 g/dL (6.4-8.2); Vancomycin, Trough 18.1 ug/mL (5.0-10.0)
[2023-02-05 07:48] VITALS: BP 137/52
[2023-02-05 14:09] VITALS: BP 153/52
[2023-02-05 14:58] LABS: Influenza A, PCR NEGATIVE (NEGATIVE); Influenza B, PCR NEGATIVE (NEGATIVE); Resp Syncytial Virus, PCR NEGATIVE (NEGATIVE); SARS-Cov-2 (COVID-19) PCR, MMC NEGATIVE (NEGATIVE)
[2023-02-05] MEDS ORDERED: ASPI81CH PO (15:46)
[2023-02-05] MEDS ORDERED: LISI20 PO (15:50)
[2023-02-05] MEDS ORDERED: MICONAZOLE NITR85 GM TOP (15:51)
[2023-02-05] MEDS ORDERED: HYDRA25 PO (15:52)
--- NOTE | 2023-02-05 16:49 | NUR ---
NOTE: REPORT GIVEN TO NURSE JUS, AT [facility]. HARD SCRIPTS OBTAINED FOR PT'S MEDICATIONS.
--- NOTE | 2023-02-05 18:56 | NUR ---
DISCHARGE SUMMARY: PT DISCHARGED TO [facility]. PT PICKED UP BY WHEELCHAIR TRANSPORT. PT TRANSFERRED TO RECLINING WHEELCHAIR VIA LIFT. PT TOLERATED WELL. DRESSING TO [facility]. PT BELONGINGS PACKED UP AND SENT WITH TRANSPORT. PT DENIED NEED FOR FAMILY TO BE CALLED STATING "MY SON IS MEETING ME OVER AT [facility]." PT LEFT PRIOR TO ARRIVAL OF DINNER AND BLOOD SUGARS COMPLETED.
== END 2023-02-05 17:36 | disposition home health service (06) | DRG 854 ==
LOC: ER 11:05 → MEDS 14:33
PROVIDERS: Emergency Medicine; Family Medicine; Orthopaedic Surgery; Student in an Organized Health Care Education/Training Program; ADMIT Hospitalist
PROC: 3E03329 Introduction of Other Anti-infective into Peripheral Vein, Percutaneous Approach (ICD-10-PCS; 2023-01-25)
PROC: 0QBL0ZZ Excision of Right Tarsal, Open Approach (ICD-10-PCS; 2023-01-26)
PROC: 0QBL0ZX Excision of Right Tarsal, Open Approach, Diagnostic (ICD-10-PCS; 2023-01-26)
PROC: 0Y6H0Z3 Detachment at Right Lower Leg, Low, Open Approach (ICD-10-PCS; principal; 2023-01-31 11:30)
DX: A41.02 Sepsis due to Methicillin resistant Staphylococcus aureus (principal); E11.52 Type 2 diabetes mellitus with diabetic peripheral angiopathy with gangrene; E87.1 Hypo-osmolality and hyponatremia; I13.0 Hypertensive heart and chronic kidney disease with heart failure and stage 1 through stage 4 chronic kidney disease, or unspecified chronic kidney disease; I96 Gangrene, not elsewhere classified; I50.32 Chronic diastolic (congestive) heart failure; L03.115 Cellulitis of right lower limb; M86.171 Other acute osteomyelitis, right ankle and foot; E11.69 Type 2 diabetes mellitus with other specified complication; E11.22 Type 2 diabetes mellitus with diabetic chronic kidney disease; B95.2 Enterococcus as the cause of diseases classified elsewhere; E11.621 Type 2 diabetes mellitus with foot ulcer; N18.32 Chronic kidney disease, stage 3b; L97.519 Non-pressure chronic ulcer of other part of right foot with unspecified severity; L89.610 Pressure ulcer of right heel, unstageable; G54.7 Phantom limb syndrome without pain; F41.9 Anxiety disorder, unspecified; Z98.890 Other specified postprocedural states; Z85.820 Personal history of malignant melanoma of skin; Z88.8 Allergy status to other drugs, medicaments and biological substances; Z79.82 Long term (current) use of aspirin; Z79.899 Other long term (current) drug therapy; Z79.4 Long term (current) use of insulin
CPT/HCPCS: 0241U; 36415; 71045; 73620; 80053; 80069; 80202; 81001; 82947; 83036; 83735; 84100; 85025; 87040; 87070; 87071; 87075; 87077; 87147; 87186; 87205; 88305; 88307; 88311; 92610; 93005; 93010; 96365; 97110; 97161; 97166; 97530; 99285-25; A9270; J0295; J0360; J1170; J1644; J1815; J2001; J2704; J3010; J3370; J3480; J7030; J7040; J7050; J7060; J7120

== ENCOUNTER 2023-02-23 07:31 | Inpatient (IN) | payer OTHER ==
[~2023-02-23] VITALS: Ht 182.9 cm; Wt 112.6 kg
[~2023-02-23 07:31] MED LIST changes: +ASPI325 PO; +ASPI81CH PO; +Aspir 8181 MG PO; +GABA300 PO; +HUMALOG KW100 UNIT/1; +HUMALOG KW100 UNIT/1 SC; +HYDRA25 PO; +KLOR-CON M1010 MEQ PO; +LISI20 PO; +MICONAZOLE NITR85 GM TOP; +SPIR50 PO
[2023-02-23 07:58] LABS: BASOPHILS ABSOLUTE AUTO 0.04 K/mm3 (0.00-0.23); BASOPHILS PERCENT AUTO 0 % (0-2); EOSINOPHILS ABSOLUTE AUTO 0.69 K/mm3 (0.00-0.68); EOSINOPHILS PERCENT AUTO 6 % (0-6); Hematocrit 34.8 % (37.0-53.0); IMMATURE GRAN ABSOLUTE AUTO 0.09 K/mm3 (0.00-0.10); IMMATURE GRAN PERCENT AUTO 1 % (0-1); LYMPHOCYTES ABSOLUTE AUTO 2.41 K/mm3 (0.84-5.20); LYMPHOCYTES PERCENT AUTO 20 % (21-46); MONOCYTES ABSOLUTE AUTO 1.15 K/mm3 (0.16-1.47); MONOCYTES PERCENT AUTO 10 % (4-13); Mean Corpuscular HGB 27.5 pg (26.0-34.0); Mean Corpuscular HGB Conc 31.6 g/dL (31.5-36.5); Mean Corpuscular Volume 87 fL (80-100); Mean Platelet Volume 11.3 fL (9.1-12.4); NEUTROPHILS ABSOLUTE AUTO 7.49 K/mm3 (1.96-9.15); NEUTROPHILS PERCENT AUTO 63 % (41-73); Platelet Count 200 K/mm3 (150-400); RDW Coefficient Variation 16.8 % (11.7-14.2); RDW Standard Deviation 53.5 fL (35.1-46.3); White Blood Cell Count 11.87 K/mm3 (4.00-11.30)
[2023-02-23] MEDS ORDERED: BISA10S PR (08:22)
[2023-02-23] MEDS ORDERED: TRAM50 PO (08:24)
[2023-02-23] MEDS ORDERED: ACET325 PO (08:24)
[2023-02-23 08:48] LABS: Albumin, Blood 2.1 g/dL (3.4-5.0); Albumin/Globulin Ratio 0.5 (0.8-1.8); Bilirubin, Total 0.2 mg/dL (0.1-1.0); Bun/Creatinine Ratio 34.8 (12.0-20.0); Calcium, Blood 8.7 mg/dL (8.5-10.1); Creatinine, Blood 2.93 mg/dL (0.60-1.20); Globulin, Blood 4.4 g/dL (2.2-4.0); Total Protein, Blood 6.5 g/dL (6.4-8.2)
[2023-02-23 14:19] LABS: Bun/Creatinine Ratio 34.2 (12.0-20.0); Creatinine, Blood 3.13 mg/dL (0.60-1.20); Potassium, Blood 6.6 mmol/L (3.5-5.5)
[2023-02-23 16:31] VITALS: BP 146/56
[2023-02-23 18:23] LABS: Source, Urine Foley catheter
[2023-02-23 18:29] LABS: Appearance, Urine Hazy (Clear); Bilirubin, Urine Neg (Neg); Blood, Urine 4+ (Neg); Color, Urine Yellow (P-Yellow); Glucose Qualitative, Urine 2+ (Neg); Ketones, Urine Neg (Neg); Leukocyte Esterase, Urine 3+ (Neg); Nitrite, Urine Neg (Neg); Protein, Urine 2+ (Neg); Specific Gravity, Urine 1.015 (1.003-1.022); Urobilinogen, Urine NORM (Normal)
--- NOTE | 2023-02-23 19:09 | NUR ---
PT IS A NEW ADMIT THIS SHIFT HE IS A&OX3-4, SOFT SPOKEN, AND BEDREST. HE IS INC OF BOWEL. PT HAS A CHRONIC REED WHICH WAS SWITCHED OUT WHEN ADMITTED TO THE FLOOR. UA SENT TO LAB. PT IS GETTING A 1000CC BOLUS OF NS OVER THREE HOURS AND WILL HAVE 75ML/HR FOR MAINTANCE FLUIDS. ON TELE THE PT'S HR HAS BEEN 40'S-60'S. NO REPORTS OF ANY ANGINA OR CHEST PRESSURE. BHAVIK TA WAS UPDATED ON THE PT'S CARE BY DECATIZER DENISE. FIRE IGNITION RISK WAS ASSESSED AND EDUCATION WAS PROVIDED.
[2023-02-23 19:54] LABS: Bacteria Many /hpf; Squamous Epithelial Cells Rare /hpf (Few); White Blood Cells, Urine 50-100 /hpf (0-5)
[2023-02-23 19:55] LABS: Amorphous Light (0-Heavy)
[2023-02-23 23:56] VITALS: BP 110/72
[2023-02-24 04:04] VITALS: BP 94/68
[2023-02-24 04:17] LABS: BASOPHILS ABSOLUTE AUTO 0.03 K/mm3 (0.00-0.23); BASOPHILS PERCENT AUTO 0 % (0-2); EOSINOPHILS ABSOLUTE AUTO 0.66 K/mm3 (0.00-0.68); EOSINOPHILS PERCENT AUTO 7 % (0-6); Hematocrit 36.3 % (37.0-53.0); Hemoglobin 11.7 g/dL (13.5-17.5); IMMATURE GRAN ABSOLUTE AUTO 0.06 K/mm3 (0.00-0.10); IMMATURE GRAN PERCENT AUTO 1 % (0-1); LYMPHOCYTES ABSOLUTE AUTO 1.62 K/mm3 (0.84-5.20); LYMPHOCYTES PERCENT AUTO 17 % (21-46); MONOCYTES ABSOLUTE AUTO 0.72 K/mm3 (0.16-1.47); MONOCYTES PERCENT AUTO 7 % (4-13); Mean Corpuscular HGB 27.6 pg (26.0-34.0); Mean Corpuscular HGB Conc 32.2 g/dL (31.5-36.5); Mean Corpuscular Volume 86 fL (80-100); Mean Platelet Volume 11.2 fL (9.1-12.4); NEUTROPHILS ABSOLUTE AUTO 6.68 K/mm3 (1.96-9.15); NEUTROPHILS PERCENT AUTO 68 % (41-73); Platelet Count 211 K/mm3 (150-400); RDW Coefficient Variation 16.8 % (11.7-14.2); RDW Standard Deviation 52.2 fL (35.1-46.3); Red Blood Cell Count 4.24 M/mm3 (4.30-5.90); White Blood Cell Count 9.77 K/mm3 (4.00-11.30)
[2023-02-24 04:43] LABS: Albumin, Blood 2.4 g/dL (3.4-5.0); Albumin/Globulin Ratio 0.6 (0.8-1.8); Bilirubin, Total 0.4 mg/dL (0.1-1.0); Bun/Creatinine Ratio 34.4 (12.0-20.0); Calcium, Blood 9.1 mg/dL (8.5-10.1); Creatinine, Blood 2.53 mg/dL (0.60-1.20); Globulin, Blood 4.3 g/dL (2.2-4.0); Potassium, Blood 5.5 mmol/L (3.5-5.5); Total Protein, Blood 6.7 g/dL (6.4-8.2)
--- NOTE | 2023-02-24 07:47 | NUR ---
SHFIT SUMMARY: A&OX4, SPEECH IS GARBLED AND DIFFICULT TO UNDERSTAND. DENIES ANY COMPLAINTS OF CHEST PAIN/PRESSURE DURING THIS SHIFT. HR SR/SB THROUGHOUT SHIFT, INTO 50'S WHILE SLEEPING, PRIMARILY IN 80'S WHILE AWAKE. BP STABLE, SEE RECORDED VITAL SIGNS. BOLUS COMPLETED AND MAINTINANCE FLUIDS INFUSING. REPOSITIONED Q2-3H WHILE AWAKE, PT REFUSING TO BE REPOSITIONED WHEN AWAKEN FROM SLEEPING. DRESSING ON STUMP OF RLE C/D/I, NO DRAINAGE NOTED. ELEVATED TO REDUCE SWELLING. PT HAS DENIED ANY PAIN IN RLE. RESTING IN BED. CALL LIGHT IN REACH. BED IN LOW POSITION.
[2023-02-24 07:58] VITALS: BP 138/63
[2023-02-24 08:32] VITALS: BP 99/66
--- NOTE | 2023-02-24 11:31 | NUR ---
TRANSFER NOTE: PT TRANSITIONED TO MEDICAL STATUS WITH TELE. PT TRANSFERRED TO RM 340 REPORT GIVEN TO MICHELE ARGUELLO. DAUGHTER ZENY WAS CALLED TO GIVE AN UPDATE NO ANSWER, LEFT A VOICEMAIL. NO ACUTE CHANGE SINCE THE BEGINNING OF THE SHIFT. PT WAS GIVEN TRAMADOL X1 FOR BACK PAIN, PHYSICAL THERAPIST ATTEMPTED TO WORK ON PT, PT REFUSED DUE TO BACK PAIN. PT HAD A BED BATH THIS MORNING, GOT UP IN THE RECLINER VIA LIFT. PT SLEPT FOR A LITTLE BIT BEFORE TRANSFER. PT HAD A SMALL LOOSE BM DURING THE BEDBATH, REED DRAINING CLOUDY YELLOW URINE VIA GRAVITY, PROVIDER AWARE, AWAITING FOR UA CULTURE TO RESULT. ALL BELONGINGS SENT WITH THE PT, ACCOMPANIED BY THIS RN AND ENGINE DYNAMOMETER TESTER VIA BED FOR TRANSFER
[2023-02-24 15:42] VITALS: BP 98/73
--- NOTE | 2023-02-24 17:43 | NUR ---
SHIFT SUMMARY PT HEART RATE HAS MAINTAINED IN THE 80S DURING MY SHIFT AND HAS NOT BEEN NOTED HAVING ANY EPISODES OF BRADYCARDIA. VSS. NO ACUTE EVENTS DURING SHIFT. PT PERFERS TO HAVE INSULIN INJECTION IN ARM RATHER THAN ABDOMEN. NO ACUTE EVENTS DURING MY SHIFT. PT LEFT IN A POSITION OF SAFETY WITH BED LOCKED AND IN LOWEST POSITION, ROOM CLEAR OF DEBRIS, BED RAILS UPX2, AND CALL LIGHT WITHIN REACH.
[2023-02-24 19:33] VITALS: BP 166/72
[2023-02-25 03:17] VITALS: BP 133/73
--- NOTE | 2023-02-25 06:07 | NUR ---
SUMMARY: PT A/OX3-4 AND HAS MUMBLED SPEECH BUT IS ABLE TO SPECIFY NEEDS. HE'S PLEASANT AND COOPERATIVE W/CARE W/TURN SCHEDULE MAINTAINED FOR SBD PREVENTION. MEPILEX IS INTACT TO BUTTOCKS AND CHRONIC REED IS PATENT AND DRAINING. PT HAD RECENT R.BKA W/JUVENAL INTACT AND STUMP DRESSING W/SOCK REMAIN IN PLACE. HE REQUIRES LIFT FOR T/F'S AND IS BEDREST/CHAIR BOUND AT THIS TIME. HE'S NSR ON TELE AT 80'S BPM AND WAS HYPERTENSIVE AT START OF SHIFT BUT RECIEVED SCHEDULED MEDS FOR IMPROVEMENT. PG INFUSES NS AT 75 ML/HR AN R.AC IV IS SL'D. NO ACUTE CHANGES, VSS/AFEBRILE. PLAN IS FOR SNF AND RETURN TO [facility] UPON D/C. WCTM AND REPORT TO DAY RN.
[2023-02-25 06:56] LABS: BASOPHILS ABSOLUTE AUTO 0.03 K/mm3 (0.00-0.23); BASOPHILS PERCENT AUTO 0 % (0-2); EOSINOPHILS ABSOLUTE AUTO 0.56 K/mm3 (0.00-0.68); EOSINOPHILS PERCENT AUTO 6 % (0-6); Hematocrit 36.4 % (37.0-53.0); Hemoglobin 11.7 g/dL (13.5-17.5); IMMATURE GRAN PERCENT AUTO 1 % (0-1); LYMPHOCYTES ABSOLUTE AUTO 1.69 K/mm3 (0.84-5.20); LYMPHOCYTES PERCENT AUTO 19 % (21-46); MONOCYTES ABSOLUTE AUTO 0.68 K/mm3 (0.16-1.47); MONOCYTES PERCENT AUTO 8 % (4-13); Mean Corpuscular HGB 27.6 pg (26.0-34.0); Mean Corpuscular HGB Conc 32.1 g/dL (31.5-36.5); Mean Corpuscular Volume 86 fL (80-100); Mean Platelet Volume 10.7 fL (9.1-12.4); NEUTROPHILS PERCENT AUTO 65 % (41-73); Platelet Count 210 K/mm3 (150-400); RDW Coefficient Variation 16.6 % (11.7-14.2); RDW Standard Deviation 51.9 fL (35.1-46.3); Red Blood Cell Count 4.24 M/mm3 (4.30-5.90); White Blood Cell Count 8.76 K/mm3 (4.00-11.30)
[2023-02-25 07:07] LABS: Bun/Creatinine Ratio 32.6 (12.0-20.0); Calcium, Blood 8.6 mg/dL (8.5-10.1); Creatinine, Blood 1.93 mg/dL (0.60-1.20); Potassium, Blood 5.4 mmol/L (3.5-5.5)
[2023-02-25 07:57] VITALS: BP 166/92
[2023-02-25 15:08] VITALS: BP 185/80
[2023-02-25 16:14] VITALS: BP 177/74
--- NOTE | 2023-02-25 17:59 | NUR ---
SHIFT SUMMARY PT SLEEPING ON AND OFF THROUGH THE DAY. BP ELEVATED AND NOTIFIED MD WITH NEW ORDERS. P.T. WORKED WITH PT AND HE WAS ABLE TO SIT UP TO SIDE OF BED AND HE REPORTS ALMOST STAND. DENIES PAIN OR NAUSEA. SPOKE WITH DR. LIZETH STAFFORD OFFICE ON THE PHONE ABOUT PT STILL HAVING JUVENAL IN R STUMP AND IF SHE WANTED THEM REMOVED. MADE APPT WITH THEM FOR POST OP FOLLOW UP DUE TO NO SHOW ON FIRST VISIT.
[2023-02-25 18:36] VITALS: BP 198/88
[2023-02-25 20:27] VITALS: BP 111/67
[2023-02-26 02:33] VITALS: BP 163/59
--- NOTE | 2023-02-26 04:27 | NUR ---
SHIFT SUMMARY NO ACUTE CHANGES NOTED. PATIENT SLEPT OFF AND ON T/O SHIFT. PATIENT IS ABLE TO MAKE HIS NEEDS KNOWN. PATIENT ABLE TO ASSIST WITH ROLLING FROM SIDE TO SIDE. REED CATHETER IS PATENT AND DRAINING TO GRAVITY. PAIN ASSESSED-PT DENIES PAIN. IV INFUSING PER EMAR. DENIES CHEST PAIN/PRESSURE/TIGHTNESS. BED IS LOCKED IN THE LOWEST POSITION WITH CALL LIGHT IN REACH. NO S/S OF DISTRESS NOTED AT THIS TIME.
[2023-02-26 07:15] VITALS: BP 158/73
[2023-02-26 08:45] LABS: Calcium, Blood 8.6 mg/dL (8.5-10.1); Creatinine, Blood 1.75 mg/dL (0.60-1.20)
[2023-02-26 12:09] LABS: SARS-Cov-2 (COVID-19) PCR, MMC NEGATIVE (NEGATIVE)
[2023-02-26 15:31] VITALS: BP 171/65
[2023-02-26] MEDS ORDERED: Amlodipine Bes2.5 MG PO (16:17)
[2023-02-26] MEDS ORDERED: METO25 PO (16:18)
--- NOTE | 2023-02-26 16:28 | NUR ---
SHIFT SUMMARY PT A&OX4 AND CALLS APPROPRIATELY. PT TO D/C TO SNF TODAY. VSS. NO ACUTE EVENTS. POWERGLIDE REMOVED FROM PT PRIOR TO TRANSFER TO SNF. PT D/DOMONIQUE TO [facility] AT 1630 VIA W/C TRANSPORTATION. ALL POSSESSIONS OUT OF ROOM AND WITH PT SON.
== END 2023-02-26 16:27 | DRG 683 ==
LOC: ER 07:31 → MEDS 07:45 → PCU 07:45 → MEDS 07:45 → PCU 16:15 → MEDS 02-24 11:20
PROVIDERS: Emergency Medicine; ADMIT Internal Medicine
PROC: 0T9B70Z Drainage of Bladder with Drainage Device, Via Natural or Artificial Opening (ICD-10-PCS; principal; 2023-02-24)
DX: N17.9 Acute kidney failure, unspecified (principal); I13.0 Hypertensive heart and chronic kidney disease with heart failure and stage 1 through stage 4 chronic kidney disease, or unspecified chronic kidney disease; I50.32 Chronic diastolic (congestive) heart failure; N18.30 Chronic kidney disease, stage 3 unspecified; E87.5 Hyperkalemia; R00.1 Bradycardia, unspecified; E11.22 Type 2 diabetes mellitus with diabetic chronic kidney disease; G54.7 Phantom limb syndrome without pain; F41.9 Anxiety disorder, unspecified; E11.65 Type 2 diabetes mellitus with hyperglycemia; E11.51 Type 2 diabetes mellitus with diabetic peripheral angiopathy without gangrene; E86.0 Dehydration; Z89.511 Acquired absence of right leg below knee; Z11.52 Encounter for screening for COVID-19; Z85.820 Personal history of malignant melanoma of skin; Z88.8 Allergy status to other drugs, medicaments and biological substances; Z79.899 Other long term (current) drug therapy; Z79.4 Long term (current) use of insulin; Z79.82 Long term (current) use of aspirin; Z79.811 Long term (current) use of aromatase inhibitors; Z87.39 Personal history of other diseases of the musculoskeletal system and connective tissue
CPT/HCPCS: 36415; 51702; 71045; 80048; 80053; 81001; 82947; 83735; 83880; 84132; 84484; 85025; 87077; 87086; 87186; 93005; 93010; 96365; 96366; 96375; 97110; 97162; 97165; 97530; 99285-25; A9270; G0378; J0612; J0696; J1644; J1815; J7030; J7040; U0002

== ENCOUNTER 2023-05-16 14:41 | Observation (INO) | payer OTHER ==
[~2023-05-16] VITALS: Ht 180.3 cm; Wt 106.5 kg
[~2023-05-16 14:41] MED LIST changes: +ACET325 PO; +Amlodipine Bes2.5 MG PO; +BISA10S PR; +METO25 PO; +TRAM50 PO
[2023-05-16] MEDS ORDERED: INSULIN GL100 UNIT/2 SC (15:19)
[2023-05-16] MEDS ORDERED: TAMS.4ER PO (15:19)
[2023-05-16] MEDS ORDERED: SENN187 PO (15:19)
[2023-05-16] MEDS ORDERED: MUPIROCIN111 (15:20)
[2023-05-16 15:23] LABS: Source, Urine Foley catheter
[2023-05-16 15:32] LABS: Appearance, Urine Cloudy (Clear); Bilirubin, Urine Neg (Neg); Blood, Urine 4+ (Neg); Color, Urine Yellow (P-Yellow); Glucose Qualitative, Urine 4+ (Neg); Ketones, Urine Neg (Neg); Leukocyte Esterase, Urine 3+ (Neg); Nitrite, Urine Pos (Neg); Protein, Urine 3+ (Neg); Specific Gravity, Urine 1.015 (1.003-1.022); Urobilinogen, Urine NORM (Normal)
[2023-05-16 15:40] LABS: White Blood Cells, Urine TNTC /hpf (0-5)
[2023-05-16 15:40] LABS: BASOPHILS ABSOLUTE AUTO 0.02 K/mm3 (0.00-0.23); BASOPHILS PERCENT AUTO 0 % (0-2); EOSINOPHILS ABSOLUTE AUTO 0.22 K/mm3 (0.00-0.68); EOSINOPHILS PERCENT AUTO 4 % (0-6); Hematocrit 45.4 % (37.0-53.0); Hemoglobin 14.5 g/dL (13.5-17.5); IMMATURE GRAN ABSOLUTE AUTO 0.01 K/mm3 (0.00-0.10); IMMATURE GRAN PERCENT AUTO 0 % (0-1); LYMPHOCYTES ABSOLUTE AUTO 1.91 K/mm3 (0.84-5.20); LYMPHOCYTES PERCENT AUTO 30 % (21-46); MONOCYTES ABSOLUTE AUTO 0.48 K/mm3 (0.16-1.47); MONOCYTES PERCENT AUTO 8 % (4-13); Mean Corpuscular HGB 26.6 pg (26.0-34.0); Mean Corpuscular HGB Conc 31.9 g/dL (31.5-36.5); Mean Corpuscular Volume 83 fL (80-100); Mean Platelet Volume 10.3 fL (9.1-12.4); NEUTROPHILS ABSOLUTE AUTO 3.64 K/mm3 (1.96-9.15); NEUTROPHILS PERCENT AUTO 58 % (41-73); Platelet Count 157 K/mm3 (150-400); RDW Coefficient Variation 14.6 % (11.7-14.2); RDW Standard Deviation 44.1 fL (35.1-46.3); Red Blood Cell Count 5.45 M/mm3 (4.30-5.90); White Blood Cell Count 6.28 K/mm3 (4.00-11.30)
[2023-05-16 15:41] LABS: Bacteria Many /hpf; Squamous Epithelial Cells Rare /hpf (Few)
[2023-05-16] MEDS ORDERED: Amoxicillin/Clavulanate K 875 MG Tab PO ONE (16:05)
[2023-05-16 16:19] LABS: Albumin, Blood 2.7 g/dL (3.4-5.0); Albumin/Globulin Ratio 0.8 (0.8-1.8); Bilirubin, Total 0.3 mg/dL (0.1-1.0); Calcium, Blood 8.7 mg/dL (8.5-10.1); Creatinine, Blood 1.12 mg/dL (0.60-1.20); Globulin, Blood 3.6 g/dL (2.2-4.0); Potassium, Blood 3.4 mmol/L (3.5-5.5); Total Protein, Blood 6.3 g/dL (6.4-8.2)
[2023-05-16] MEDS ORDERED: Aspirin 81 MG Chew PO ONE (16:50)
[2023-05-16] MEDS ORDERED: Furosemide 20 MG Tab PO ONE (16:50)
[2023-05-16] MEDS ORDERED: Insulin Human Lispro 100 Units/ML 3ML Syringe SC SCH (21:00)
[2023-05-16] MEDS ORDERED: Amoxicillin/Clavulanate K 875 MG Tab PO SCH (21:00)
[2023-05-16] MEDS ORDERED: Metoprolol Tartrate 25 MG Tab PO SCH (21:00)
[2023-05-16] MEDS ORDERED: Sennosides 8.6 MG Tab PO SCH (21:00)
[2023-05-16] MEDS ORDERED: HydrALAZINE HCl 25 MG Tab PO SCH (21:00)
[2023-05-16] MEDS ORDERED: ALPRAZolam 1 MG Tab PO SCH (21:00)
[2023-05-17] MEDS ORDERED: Insulin Glargine-Yfgn 100 Unit/mL 3 ML SYR SC SCH ×2 (09:00→17:00)
[2023-05-17] MEDS ORDERED: Furosemide 20 MG Tab PO SCH (09:00)
[2023-05-17] MEDS ORDERED: Aspirin 325 MG Tab PO SCH (09:00)
[2023-05-17] MEDS ORDERED: AmLODIPine Besylate 5 MG Tab PO SCH (09:00)
[2023-05-17] MEDS ORDERED: Tamsulosin HCl 0.4 MG Cap PO SCH (09:00)
[2023-05-17] MEDS ORDERED: Aspirin 81 MG TabEC PO SCH (09:00)
[2023-05-17] MEDS ORDERED: FLU VACC QS2023-24(6MOS UP)/PF 60 MCG/0.5 ML SYRINGE IM ONE (16:25)
[2023-05-17] MEDS ORDERED: Mupirocin 2% Ointment 22 GM TOP SCH (17:00)
[2023-05-17] MEDS ORDERED: Insulin Human Lispro 100 Units/ML 3ML Syringe SC SCH (17:30)
[2023-05-17 20:40] VITALS: BP 150/62
[2023-05-17] MEDS ORDERED: Trimethoprim/Sulfamethoxazole DS Tab PO SCH (21:00)
[2023-05-17] MEDS ORDERED: Lactobacil 2-S.Thermo-Bifido 1 1 Cap PO SCH (21:00)
[2023-05-18] MEDS ORDERED: Acetaminophen 325 MG TABLET PO PRN (00:55)
[2023-05-18] MEDS ORDERED: TraMADol HCl 50 MG Tab PO PRN (00:55)
[2023-05-18 03:20] VITALS: BP 142/66
[2023-05-18 05:03] LABS: BASOPHILS ABSOLUTE AUTO 0.02 K/mm3 (0.00-0.23); BASOPHILS PERCENT AUTO 0 % (0-2); EOSINOPHILS ABSOLUTE AUTO 0.31 K/mm3 (0.00-0.68); EOSINOPHILS PERCENT AUTO 5 % (0-6); Hematocrit 42.4 % (37.0-53.0); Hemoglobin 13.6 g/dL (13.5-17.5); IMMATURE GRAN ABSOLUTE AUTO 0.03 K/mm3 (0.00-0.10); IMMATURE GRAN PERCENT AUTO 0 % (0-1); LYMPHOCYTES PERCENT AUTO 30 % (21-46); MONOCYTES ABSOLUTE AUTO 0.62 K/mm3 (0.16-1.47); MONOCYTES PERCENT AUTO 9 % (4-13); Mean Corpuscular HGB 26.8 pg (26.0-34.0); Mean Corpuscular HGB Conc 32.1 g/dL (31.5-36.5); Mean Corpuscular Volume 84 fL (80-100); Mean Platelet Volume 10.8 fL (9.1-12.4); NEUTROPHILS ABSOLUTE AUTO 3.81 K/mm3 (1.96-9.15); NEUTROPHILS PERCENT AUTO 56 % (41-73); Platelet Count 185 K/mm3 (150-400); RDW Coefficient Variation 14.8 % (11.7-14.2); RDW Standard Deviation 44.9 fL (35.1-46.3); Red Blood Cell Count 5.07 M/mm3 (4.30-5.90); White Blood Cell Count 6.79 K/mm3 (4.00-11.30)
[2023-05-18 05:37] LABS: Bun/Creatinine Ratio 14.4 (12.0-20.0); Calcium, Blood 8.4 mg/dL (8.5-10.1); Creatinine, Blood 1.32 mg/dL (0.60-1.20); Potassium, Blood 3.1 mmol/L (3.5-5.5)
[2023-05-18] MEDS ORDERED: Potassium Chloride 20 MEQ TabCR PO ONE (07:00)
[2023-05-18 07:20] VITALS: BP 137/65
[2023-05-18] MEDS ORDERED: Insulin Human Lispro 100 Units/ML 3ML Syringe SC SCH (07:30)
--- NOTE | 2023-05-18 07:34 | NUR ---
SHIFT SUMMARY PT IS A&OX3, OFF ON DATE. VSS ON RA. C/O PAIN IN BILATERAL SHOULDERS, BACK, AND GENERALIZED EVERYWHERE, MANAGED WITH PRN MEDICATIONS PER EMAR. TOLERATING A CONS CARB DIET. TAKES PILLS ONE AT A TIME, LARGE ONES BROKE IN HALF WITH APPLESAUCE. NOOB THIS SHIFT. R BKA. DRESSING TO BILATERAL BUTTOCKS, C/D/I. REED CATHETER DRAINING ADEQUATE AMOUNTS OF CLEAR YELLOW URINE. NO BM THIS SHIFT. BED IN LOWEST POSITION, CALL LIGHT WITHIN REACH. PAT USES HIS CALL LIGHT APPROPRIATELY.
[2023-05-18] MEDS ORDERED: Insulin Glargine-Yfgn 100 Unit/mL 3 ML SYR SC SCH (09:00)
[2023-05-18] MEDS ORDERED: Enoxaparin 40 MG/0.4 ML SYR SC SCH (09:00)
[2023-05-18] MEDS ORDERED: Alogliptin Benzoate 6.25 MG TABLET PO SCH (12:00)
[2023-05-18 14:39] VITALS: BP 129/61
[2023-05-18 15:31] VITALS: BP 129/62
[2023-05-18] MEDS ORDERED: Miconazole Nitrate 2% 85 GM PWD TOP SCH (18:00)
--- NOTE | 2023-05-18 19:27 | NUR ---
SHIFT SUMMARY: NO ACUTE EVENTS. A&O X 3, SPEECH IS SLURRED AND DIFFICULT TO UNDERSTAND. WOUND CONSULT PLACED FOR BILATERAL BUTTOCK EXCORIATION AND WOUND CARE ORDERS PLACED. REED DRAINING ADEQUATE URINE. SERUM POTASSIUM 3.1, REPLACED WITH 40 MEQ PO. SON CAME BY BRIEFLY TO VISIT.
[2023-05-18 19:56] VITALS: BP 124/58
[2023-05-19] MEDS ORDERED: Peg 400/Hypromellose/Glycerin 15 DROP/ML BTL BOTHEYES PRN (02:10)
[2023-05-19 03:39] VITALS: BP 149/56
[2023-05-19 05:00] LABS: BASOPHILS ABSOLUTE AUTO 0.02 K/mm3 (0.00-0.23); BASOPHILS PERCENT AUTO 0 % (0-2); EOSINOPHILS ABSOLUTE AUTO 0.41 K/mm3 (0.00-0.68); EOSINOPHILS PERCENT AUTO 5 % (0-6); Hematocrit 41.8 % (37.0-53.0); Hemoglobin 13.4 g/dL (13.5-17.5); IMMATURE GRAN ABSOLUTE AUTO 0.04 K/mm3 (0.00-0.10); IMMATURE GRAN PERCENT AUTO 1 % (0-1); LYMPHOCYTES ABSOLUTE AUTO 2.14 K/mm3 (0.84-5.20); LYMPHOCYTES PERCENT AUTO 26 % (21-46); MONOCYTES ABSOLUTE AUTO 0.64 K/mm3 (0.16-1.47); MONOCYTES PERCENT AUTO 8 % (4-13); Mean Corpuscular HGB 26.7 pg (26.0-34.0); Mean Corpuscular HGB Conc 32.1 g/dL (31.5-36.5); Mean Corpuscular Volume 83 fL (80-100); Mean Platelet Volume 10.6 fL (9.1-12.4); NEUTROPHILS ABSOLUTE AUTO 4.92 K/mm3 (1.96-9.15); NEUTROPHILS PERCENT AUTO 60 % (41-73); Platelet Count 201 K/mm3 (150-400); RDW Coefficient Variation 14.8 % (11.7-14.2); RDW Standard Deviation 45.1 fL (35.1-46.3); Red Blood Cell Count 5.02 M/mm3 (4.30-5.90); White Blood Cell Count 8.17 K/mm3 (4.00-11.30)
[2023-05-19 05:25] LABS: Bun/Creatinine Ratio 11.5 (12.0-20.0); Calcium, Blood 8.3 mg/dL (8.5-10.1); Creatinine, Blood 1.74 mg/dL (0.60-1.20); Potassium, Blood 3.4 mmol/L (3.5-5.5)
[2023-05-19 07:49] VITALS: BP 138/67
[2023-05-19] MEDS ORDERED: Potassium Chloride 20 MEQ TabCR PO SCH (09:00)
--- NOTE | 2023-05-19 09:20 | NUR ---
SHIFT SUMMARY PT IS A&0X3, OFF ON DATE. PLEASANT, COOPERATIVE WITH ALL CARES AND APPRECIATIVE. TAKES PT LONGER TIME TO ANSWER QUESTIONS. VSS ON RA. C/O PAIN IN BACK, MANAGED WITH PRN MEDICATIONS PER EMAR. TOLERATING A CONS CARB DIET. NO ACUTE CHANGES THIS SHIFT. REED CATHETER PATENT, DRAINING TO GRAVITY. NO BM THIS SHIFT. NOOB THIS SHIFT. PAT USES HIS CALL LIGHT APPROPRIATELY.
[2023-05-19 16:40] VITALS: BP 140/59
[2023-05-19] MEDS ORDERED: PIOG15 PO (17:08)
--- NOTE | 2023-05-19 18:23 | NUR ---
SHIFT SUMMARY: PT HAS BEEN A&Ox3, UNSURE OF DATE, ANSWERS QUESTIONS A LITTLE SLOWLY BUT APPROPRIATELY, ABLE TO MAKE NEEDS KNOWN. PT HAS MAINTAINED O2 SATS >95% ON RA, LS CLEAR, BUT PT DOES C/O FEELING SOB THIS AFTERNOON WITH SOME PAIN IN L CHEST W/DEEP INSPIRATION. PT STATES THIS HAS BEEN INTERMITTENT OVER THE PAST 1.5 MONTHS. PROVIDER NOTIFIED. NO NEW ORDERS. VSS. PT TAKES PILLS 1-2 AT A TIME IN APPLESAUCE W/OUT DIFFICULTY. INDWELLING CATHETER PATENT, DRAINING TO GRAVITY. PT/OT EVAL TODAY. WOUND CARE PROVIDED PER ORDERS. PT RESTING QUIETLY IN ROOM, WILL CONTINUE TO MONITOR AND TREAT ACCORDINGLY UNTIL CHANGE OF SHIFT.
[2023-05-19 19:19] VITALS: BP 127/64
[2023-05-20 02:36] VITALS: BP 135/61
[2023-05-20 07:10] LABS: BASOPHILS ABSOLUTE AUTO 0.02 K/mm3 (0.00-0.23); BASOPHILS PERCENT AUTO 0 % (0-2); EOSINOPHILS PERCENT AUTO 6 % (0-6); Hematocrit 41.7 % (37.0-53.0); Hemoglobin 13.8 g/dL (13.5-17.5); IMMATURE GRAN ABSOLUTE AUTO 0.03 K/mm3 (0.00-0.10); IMMATURE GRAN PERCENT AUTO 0 % (0-1); LYMPHOCYTES ABSOLUTE AUTO 1.94 K/mm3 (0.84-5.20); LYMPHOCYTES PERCENT AUTO 27 % (21-46); MONOCYTES PERCENT AUTO 11 % (4-13); Mean Corpuscular HGB 27.3 pg (26.0-34.0); Mean Corpuscular HGB Conc 33.1 g/dL (31.5-36.5); Mean Corpuscular Volume 82 fL (80-100); Mean Platelet Volume 9.9 fL (9.1-12.4); NEUTROPHILS ABSOLUTE AUTO 4.12 K/mm3 (1.96-9.15); NEUTROPHILS PERCENT AUTO 56 % (41-73); Platelet Count 199 K/mm3 (150-400); RDW Coefficient Variation 14.8 % (11.7-14.2); RDW Standard Deviation 44.5 fL (35.1-46.3); Red Blood Cell Count 5.06 M/mm3 (4.30-5.90); White Blood Cell Count 7.31 K/mm3 (4.00-11.30)
[2023-05-20 07:29] LABS: Albumin, Blood 2.4 g/dL (3.4-5.0); Albumin/Globulin Ratio 0.7 (0.8-1.8); Bilirubin, Total 0.2 mg/dL (0.1-1.0); Bun/Creatinine Ratio 13.1 (12.0-20.0); Calcium, Blood 8.5 mg/dL (8.5-10.1); Creatinine, Blood 1.53 mg/dL (0.60-1.20); Globulin, Blood 3.6 g/dL (2.2-4.0); Potassium, Blood 3.7 mmol/L (3.5-5.5)
[2023-05-20 07:39] VITALS: BP 143/66
--- NOTE | 2023-05-20 08:46 | NUR ---
SHIFT SUMMARY PT IS A&OX3, OFF ON DATE. SLOW TO ANSWER AND HARD TO UNDERSTAND AT TIMES. VSS ON RA. C/O BACK PAIN, MANAGED WITH PRN MEDICATIONS. TOLERATING A CONS CARB DIET. REED CATHETER DRAINING ADEQUATE AMOUNTS OF YELLOW URINE, NO BM THIS SHIFT. NO ACUTE CHANGES THIS SHIFT. BED IN LOWEST POSITION, CALL LIGHT WITHIN REACH. PT USES CALL LIGHT APPROPRIATELY, FREQUENT ROUNDING. NOOB THIS SHIFT, REPOSITIONED TOLERATED.
[2023-05-20] MEDS ORDERED: Alogliptin Benzoate 25 MG TAB PO SCH (09:00)
[2023-05-20] MEDS ORDERED: VISBIOME 112.51 EACH PO (14:28)
[2023-05-20] MEDS ORDERED: BACTRIM DS TAB1 EAC6 PO (14:29)
[2023-05-20] MEDS ORDERED: K-Dur20 MEQ PO (14:30)
[2023-05-20] MEDS ORDERED: ALOGLIPTIN25 M1 PO (14:31)
[2023-05-20] MEDS ORDERED: ACET325 PO (14:32)
[2023-05-20 14:41] VITALS: BP 152/60
--- NOTE | 2023-05-20 19:21 | NUR ---
SUMMARY- PT A/O X3. BEDREST WITH ROUTINE CHANGE IN POSITIONS. PT HAS REED, DRAINING MED YELLOW. TOLERATING FOOD AND FLUIDS. DC ORDERS FOR UVR DELAYED BECAUSE PRE-AUTH NEEDED FOR INSURANCE. PT HAS DENIED PAIN THIS SHIFT. WOUND CARE TO GLUT COMPLETED - CLEANSED, APPLIED CALAZYME AND MEPILEX. CLEANSED SCROTOM AND APPLIED MICONAZOLE CREAM. BACITRACIN TO SCABS ON ARMS. BLOOD SUGARS STABLE BELOW 200'S, USING SSI AND SCHED INSULIN WITH MEALS. REPORTED ALL TO DIOGENES ARGUELLO.
[2023-05-20 19:44] VITALS: BP 136/62
[2023-05-21 03:47] VITALS: BP 161/64
[2023-05-21 07:33] VITALS: BP 130/65
--- NOTE | 2023-05-21 08:20 | NUR ---
SHIFT SUMMARY PAT HAD A GOOD NIGHT, SLEPT T/O. VSS ON RA. NO ACUTE CHANGES THIS SHIFT. C/O DISCOMFORT ON HIS BUTTOCKS AND SCROTUM. CLEANSED THE SKIN WELL, APPLIED CREAM AND POWDER. PT SAID IT FELT BETTER. ANXIOUS TO GET TO [facility]. REED CATHETER DRAINING DARK YELLOW URINE TO GRAVITY. NO BM THIS SHIFT. BED IN LOWEST POSITION, CALL LIGHT WITHIN REACH.
--- NOTE | 2023-05-21 09:00 | NUR ---
pt laying in bed awake a/ox3, pleasant and cooperative with care, follows commands well, denies pain at this time, a/ox3, but diff to understand, lungs are clear t/o, on r/a, resp even and unlabored, no cough noted, hrr, no edema noted, rbka, piv to rhand, site is clear and patent, btx4, abd flat soft nontender, voids via harris cath draining yellow urine, skin has wounds to buttocks, mepilex dressing in place, some scabs to arms, moves arms, but hands look a bit contracted, addison, is wheelchair bound, call light in reach.
--- NOTE | 2023-05-21 14:30 | NUR ---
pt seems depressed, is refusing to eat, states he didn't eat breakfast either, no further complaints, call light in reach.
[2023-05-21 16:15] VITALS: BP 126/69
--- NOTE | 2023-05-21 18:12 | NUR ---
pt has refused meals for breakfast and lunch, he got hungry before dinner and drank and ensure and ate most of his dinner this evening. is concerned about financial stuff this evening. no further changes this shift. call light in reach.
[2023-05-21 21:07] VITALS: BP 144/57
[2023-05-22 04:21] VITALS: BP 121/57
--- NOTE | 2023-05-22 05:15 | NUR ---
SHIFT SUMMARY PT A&O, ABLE TO MAKE NEEDS KNOWN. MUMBLED SPEECH NOTED. PT REPORTING PRODUCTIVE COUGH. THIS RN NOTED PT WAS DRINKING WHILE LYING FLAT. THIS RN EDUCATED PT REGARDING SITTING UPRIGHT FOR ALL INTAKE. MEDS TAKEN WELL WITH APPLESAUCE. VSS, ON RA. PT ASSISTED WITH REPOSITIONING, REFUSED SEVERAL TIMES. MEPILEX C/D/I ON COCCYX. REED CATHETER PATENT AND DRAINING TO GRAVITY. BED IN LOWEST POSITION AND CALL LIGHT WITHIN REACH. THIS RN WILL REPORT TO ONCOMING DAYSNJFT RN.
[2023-05-22 05:55] LABS: BASOPHILS ABSOLUTE AUTO 0.03 K/mm3 (0.00-0.23); BASOPHILS PERCENT AUTO 0 % (0-2); EOSINOPHILS ABSOLUTE AUTO 0.43 K/mm3 (0.00-0.68); EOSINOPHILS PERCENT AUTO 5 % (0-6); Hematocrit 42.7 % (37.0-53.0); Hemoglobin 13.1 g/dL (13.5-17.5); IMMATURE GRAN ABSOLUTE AUTO 0.06 K/mm3 (0.00-0.10); IMMATURE GRAN PERCENT AUTO 1 % (0-1); LYMPHOCYTES ABSOLUTE AUTO 2.01 K/mm3 (0.84-5.20); LYMPHOCYTES PERCENT AUTO 24 % (21-46); MONOCYTES ABSOLUTE AUTO 1.03 K/mm3 (0.16-1.47); MONOCYTES PERCENT AUTO 12 % (4-13); Mean Corpuscular HGB 25.9 pg (26.0-34.0); Mean Corpuscular HGB Conc 30.7 g/dL (31.5-36.5); Mean Corpuscular Volume 85 fL (80-100); Mean Platelet Volume 10.1 fL (9.1-12.4); NEUTROPHILS PERCENT AUTO 58 % (41-73); Platelet Count 258 K/mm3 (150-400); RDW Coefficient Variation 14.9 % (11.7-14.2); RDW Standard Deviation 46.1 fL (35.1-46.3); Red Blood Cell Count 5.05 M/mm3 (4.30-5.90); White Blood Cell Count 8.46 K/mm3 (4.00-11.30)
[2023-05-22 06:09] LABS: Bun/Creatinine Ratio 13.3 (12.0-20.0); Calcium, Blood 8.9 mg/dL (8.5-10.1); Creatinine, Blood 1.81 mg/dL (0.60-1.20); Potassium, Blood 4.3 mmol/L (3.5-5.5)
[2023-05-22 07:30] VITALS: BP 131/54
[2023-05-22 15:59] VITALS: BP 129/60
--- NOTE | 2023-05-22 18:25 | NUR ---
DAYSHIFT SUMMARY Patient alert & oriented x4. Calls appropriately. C/o pain in groin and buttocks, pdw & cream applied, skin CDI. CBGS WNL, SSI given at lunch & dinner. Pt worked with therapy today. Vitals stable. Awaiting discharge planning.
[2023-05-22 19:53] VITALS: BP 128/64
[2023-05-23 03:34] VITALS: BP 131/63
--- NOTE | 2023-05-23 04:38 | NUR ---
SHIFT SUMMERY, PT RESTING IN BED, PT SEEMED TO BE HAVING DIFFICULTY ETTING COMFORTABLE. PT TURNED AND PILLOW PLACED FOR COMFORT AND PPREVENTION. PT AT THIS TIME APPEARS TO BE COMFORTABLY SLEEPING, CALL LIGHT IN REACH.
[2023-05-23 05:04] LABS: BASOPHILS ABSOLUTE AUTO 0.04 K/mm3 (0.00-0.23); BASOPHILS PERCENT AUTO 1 % (0-2); EOSINOPHILS ABSOLUTE AUTO 0.41 K/mm3 (0.00-0.68); EOSINOPHILS PERCENT AUTO 5 % (0-6); Hematocrit 42.8 % (37.0-53.0); Hemoglobin 13.8 g/dL (13.5-17.5); IMMATURE GRAN ABSOLUTE AUTO 0.05 K/mm3 (0.00-0.10); IMMATURE GRAN PERCENT AUTO 1 % (0-1); LYMPHOCYTES PERCENT AUTO 26 % (21-46); MONOCYTES ABSOLUTE AUTO 0.95 K/mm3 (0.16-1.47); MONOCYTES PERCENT AUTO 11 % (4-13); Mean Corpuscular HGB 26.9 pg (26.0-34.0); Mean Corpuscular HGB Conc 32.2 g/dL (31.5-36.5); Mean Corpuscular Volume 83 fL (80-100); Mean Platelet Volume 10.3 fL (9.1-12.4); NEUTROPHILS ABSOLUTE AUTO 4.96 K/mm3 (1.96-9.15); NEUTROPHILS PERCENT AUTO 58 % (41-73); Platelet Count 276 K/mm3 (150-400); RDW Coefficient Variation 14.9 % (11.7-14.2); RDW Standard Deviation 45.5 fL (35.1-46.3); Red Blood Cell Count 5.13 M/mm3 (4.30-5.90); White Blood Cell Count 8.61 K/mm3 (4.00-11.30)
[2023-05-23 05:59] LABS: Bun/Creatinine Ratio 13.9 (12.0-20.0); Calcium, Blood 8.9 mg/dL (8.5-10.1); Creatinine, Blood 1.94 mg/dL (0.60-1.20); Potassium, Blood 4.4 mmol/L (3.5-5.5)
[2023-05-23 07:32] VITALS: BP 152/68
[2023-05-23 15:41] VITALS: BP 137/61
--- NOTE | 2023-05-23 15:42 | NUR ---
DAYSHIFT SUMMARY Patient alert & oriented x2-3. SERVICES MGR revaluated patient this AM, and reported to RN that patient is having difficulty swallowing eggs, no eggs for breakfast. Patient doing well with thins liquids/no straw, and taking pills whole with applesauce. CBGs WNL, SSI and scheduled insulin administred. Arredondo catheter intact, draining to gravity. No acute changes this shift, Awaiting discharge planning.
[2023-05-23 20:36] VITALS: BP 130/54
[2023-05-24 03:31] VITALS: BP 120/59
[2023-05-24 08:03] VITALS: BP 135/63
[2023-05-24] MEDS ORDERED: NS 1,000 ML IV SCH (10:50)
[2023-05-24] MEDS ORDERED: Insulin Human Lispro 100 Units/ML 3ML Syringe SC SCH (12:30)
[2023-05-24 16:25] VITALS: BP 143/67
--- NOTE | 2023-05-24 17:55 | NUR ---
SHIFT SUMMARY PATIENT IS ALERT AND ORIENTED X2. PATIENT HAS HAD NO ACUTE EVENTS THIS SHIFT. VITAL SIGNS REVIEWED. PATIENT HAS BEEN SLEEPING MOST OF SHIFT. PATIENT HAS NOT COMPLAINED OF SOB, NAUSEA, VOMITTING OR PAIN THIS SHIFT. BED IN LOCKED AND LOWEST POSITION. CALL LIGHT IN PLACE. WILL MONITOR UNTIL SHIFT CHANGE.
[2023-05-24 20:31] VITALS: BP 145/59
[2023-05-25 02:16] VITALS: BP 132/65
[2023-05-25] MEDS ORDERED: DiphenhydrAMINE HCL 25 MG Cap PO ONE (03:10)
[2023-05-25 05:03] LABS: BASOPHILS ABSOLUTE AUTO 0.04 K/mm3 (0.00-0.23); BASOPHILS PERCENT AUTO 0 % (0-2); EOSINOPHILS ABSOLUTE AUTO 0.37 K/mm3 (0.00-0.68); EOSINOPHILS PERCENT AUTO 4 % (0-6); Hematocrit 41.7 % (37.0-53.0); Hemoglobin 13.3 g/dL (13.5-17.5); IMMATURE GRAN ABSOLUTE AUTO 0.04 K/mm3 (0.00-0.10); IMMATURE GRAN PERCENT AUTO 0 % (0-1); LYMPHOCYTES ABSOLUTE AUTO 2.17 K/mm3 (0.84-5.20); LYMPHOCYTES PERCENT AUTO 24 % (21-46); MONOCYTES ABSOLUTE AUTO 0.94 K/mm3 (0.16-1.47); MONOCYTES PERCENT AUTO 11 % (4-13); Mean Corpuscular HGB 26.6 pg (26.0-34.0); Mean Corpuscular HGB Conc 31.9 g/dL (31.5-36.5); Mean Corpuscular Volume 83 fL (80-100); Mean Platelet Volume 10.2 fL (9.1-12.4); NEUTROPHILS ABSOLUTE AUTO 5.41 K/mm3 (1.96-9.15); NEUTROPHILS PERCENT AUTO 60 % (41-73); Platelet Count 290 K/mm3 (150-400); RDW Standard Deviation 45.4 fL (35.1-46.3); White Blood Cell Count 8.97 K/mm3 (4.00-11.30)
[2023-05-25 06:06] LABS: Albumin, Blood 2.7 g/dL (3.4-5.0); Anion Gap 4 mmol/L (6-16); Blood Urea Nitrogen 31 mg/dL (8-24); Bun/Creatinine Ratio 17.6 (12.0-20.0); CO2, Blood 28 mmol/L (21-32); Calcium, Blood 9.1 mg/dL (8.5-10.1); Chloride, Blood 104 mmol/L (98-108); Creatinine, Blood 1.76 mg/dL (0.60-1.20); Glomerular Filtration Rate 38 (60-); Glucose, Blood 117 mg/dL (70-99); Phosphorus, Blood 3.6 mg/dL (2.5-4.9); Potassium, Blood 4.4 mmol/L (3.5-5.5); Sodium, Blood 136 mmol/L (136-145)
--- NOTE | 2023-05-25 08:07 | NUR ---
SHIFT SUMMARY PT IS A&OX3, PLEASANT AND APPRECIATIVE. MUMBLED SPEECH, BUT ABLE TO MAKE NEEDS KNOWN. NO ACUTE CHANGES THIS SHIFT. VSS ON RA. C/O PAIN IN BUTTOCKS AND BACK, MEDICATED PER EMAR AND REPOSITIONED TOLERATED. MEPLEX TO BUTTOCKS, C/D/I. REED CATHETER DRAINING CLEAR, LIGHT YELLOW URINE TO GRAVITY. NO BM THIS SHIFT, NO BM CHARTED SINCE 05/18/23. NOOB THIS SHIFT. TOLERATING DIET, AND PILLS WHOLE, ONE AT A TIME IN APPLESAUCE. PT ITCHING BILATERAL ARMS, AND HEAD, SAYS THEY ARE ITCHINGING BAD. APPLIED LOTION, CALLED MD, SEE NEW ORDER. PT STATED TO THIS NURSE TONIGHT THAT HE WAS HAVING A BAD DAY D/T HIS SON, ANA, TAKING PT'S MONEY OUT OF BANK AND LEAVING IN PT'S CAR. PT STATED THAT HIS OTHER SON WAS GOING TO TRY TO LOCATE SON ANA TODAY. BED IN LOWEST POSITION, CALL LIGHT WITHIN REACH. GOES BY THE NAME, "DAVON".
[2023-05-25] MEDS ORDERED: Sennosides 8.6 MG Tab PO PRN (09:10)
[2023-05-25] MEDS ORDERED: Polyethylene Glycol 3350 17 gm PO PRN (09:10)
[2023-05-25 15:05] VITALS: BP 150/71
--- NOTE | 2023-05-25 16:05 | NUR ---
SPOKE WITH CASE MANAGMENT ABOUT THIS PATIENT, AND HIS DISCHARGE PLAN. DAVON WANTS TO GO TO [facility] BUT DUE TO HIS FINANCIAL SITUATION HE MAY HAVE TO PAY OUT OF POCKET FOR THAT. HE REPORTED THAT HE WAS NOT PAINFUL AT THIS TIME, HE SAID HE HAD SOME DISCOMFORT IN HIS ABDOMEN BUT IT WASNT CURRENTLY BOTHERING HIM. WE DISCUSSED HIS CODE STATUS AND HE WISHES TO REMAIN A FULL CODE AT THIS TIME.
--- NOTE | 2023-05-25 17:22 | NUR ---
SHIFT SUMMARY PATIENT IS ALERT AND ORIENTED. PATIENT HAS BEEN PLEASENT AND COOPERATIVE THIS SHIFT. PATIENT HAS NOT COMPLAINED OF SOB, NAUSEA, PAIN OR VOMITTING THIS SHIFT. PATIENT HAS HAD A BATH THIS SHIFT. PATIENTS REED HAS BEEN PATENT AND DRAINING GILMAR URINE. BED IN LOCKED AND LOWEST POSITION. CALL LIGHT IN PLACE. WILL MONITOR UNTIL SHIFT CHANGE.
[2023-05-25 19:58] VITALS: BP 151/57
[2023-05-26 04:42] VITALS: BP 126/64
[2023-05-26 04:55] LABS: BASOPHILS ABSOLUTE AUTO 0.04 K/mm3 (0.00-0.23); BASOPHILS PERCENT AUTO 1 % (0-2); EOSINOPHILS ABSOLUTE AUTO 0.28 K/mm3 (0.00-0.68); EOSINOPHILS PERCENT AUTO 4 % (0-6); Hematocrit 43.2 % (37.0-53.0); Hemoglobin 13.1 g/dL (13.5-17.5); IMMATURE GRAN ABSOLUTE AUTO 0.05 K/mm3 (0.00-0.10); IMMATURE GRAN PERCENT AUTO 1 % (0-1); LYMPHOCYTES PERCENT AUTO 27 % (21-46); MONOCYTES ABSOLUTE AUTO 0.83 K/mm3 (0.16-1.47); MONOCYTES PERCENT AUTO 11 % (4-13); Mean Corpuscular HGB 25.6 pg (26.0-34.0); Mean Corpuscular HGB Conc 30.3 g/dL (31.5-36.5); Mean Corpuscular Volume 85 fL (80-100); Mean Platelet Volume 9.8 fL (9.1-12.4); NEUTROPHILS ABSOLUTE AUTO 4.52 K/mm3 (1.96-9.15); NEUTROPHILS PERCENT AUTO 58 % (41-73); Platelet Count 285 K/mm3 (150-400); RDW Coefficient Variation 14.8 % (11.7-14.2); RDW Standard Deviation 45.4 fL (35.1-46.3); Red Blood Cell Count 5.11 M/mm3 (4.30-5.90); White Blood Cell Count 7.82 K/mm3 (4.00-11.30)
[2023-05-26 05:29] LABS: Albumin, Blood 2.7 g/dL (3.4-5.0); Albumin/Globulin Ratio 0.8 (0.8-1.8); Bilirubin, Total 0.6 mg/dL (0.1-1.0); Bun/Creatinine Ratio 14.6 (12.0-20.0); Calcium, Blood 8.9 mg/dL (8.5-10.1); Creatinine, Blood 1.92 mg/dL (0.60-1.20); Globulin, Blood 3.6 g/dL (2.2-4.0); Potassium, Blood 4.2 mmol/L (3.5-5.5); Total Protein, Blood 6.3 g/dL (6.4-8.2)
[2023-05-26 07:36] VITALS: BP 149/68
--- NOTE | 2023-05-26 08:05 | NUR ---
SHIFT SUMMARY PT A&OX3, OFF ON DATE. NO ACUTE CHANGES THIS SHIFT. C/O PAIN IN HIS BUTTOCKS, MEDICATED PER EMAR. VSS ON RA. PT ITCHING BUE AND HEAD, LOTION APPLIED TO ARMS. SCRATCHED A MOLE ON RUE AND WAS BLEEDING, APPLIED BANDAID. REED CATHETER PATENT AND DRAINING LIGHT YELLOW URINE, NO BM THIS SHIFT, PRN BOWEL MEDS GIVEN. NOOB THIS SHIFT, REPOSITIONED TOLERATED. BED IN LOWEST POSITION, CALL LIGHT WITHIN REACH.
[2023-05-26] MEDS ORDERED: Polyethylene Glycol 3350 17 gm PO SCH (09:00)
[2023-05-26] MEDS ORDERED: Docusate Sodium 100 MG Cap PO SCH (09:00)
[2023-05-26] MEDS ORDERED: Sennosides 8.6 MG Tab PO SCH (09:00)
[2023-05-26] MEDS ORDERED: Eucerin Unscented Lotion 240 ml TOP PRN (09:05)
[2023-05-26] MEDS ORDERED: Polyethylene Glycol 3350 17 gm PO PRN (10:00)
[2023-05-26] MEDS ORDERED: Polyethylene Glycol 3350 17 gm PO ONE (10:00)
[2023-05-26] MEDS ORDERED: Lactated Ringer's 1,000 ML IV SCH (13:40)
[2023-05-26 14:45] VITALS: BP 134/67
--- NOTE | 2023-05-26 18:26 | NUR ---
PATIENT A/OX3-4, DIFFICULT TO UNDERSTAND DUE TO MUMBLES SPEECH. PLEASANT AND COOPERATIVE WITH CARE, ABLE TO MAKE NEEDS KNOWN. WORKED WITH OT TODAY. FOELY TO GRAVITY. LR RUNNING AT 125/HR X1 BAG. TOLERATING MECH SOFT DIET, ABLE TO FEED SELF. NO ACUTE CHANGES THIS SHIFT, AWAITING BUILDINGS PAINTER PLACEMENT.
[2023-05-27 04:19] VITALS: BP 147/73
[2023-05-27 06:05] LABS: Calcium, Blood 9.1 mg/dL (8.5-10.1); Creatinine, Blood 1.6 mg/dL (0.60-1.20); Potassium, Blood 4.2 mmol/L (3.5-5.5)
[2023-05-27 07:54] VITALS: BP 148/65
--- NOTE | 2023-05-27 08:15 | NUR ---
SHIFT SUMMARY PAT IS A&OX3, OFF ON DATE. VSS ON RA. NO ACUTE CHANGES THIS SHIFT. C/O PAIN IN HIS BUTTOCKS AND SCROTUM, MANAGED WITH MEDICATIONS PER EMAR. SLEPT WELL T/O NOC. TOLERATING DIET. TOOK PILLS WHOLE, TWO AT A TIME IN APPLESAUCE. NO COUGHING. X2 ASSIST TO REPOSITION, NOOB THIS SHIFT. REED CATHETER DRAINING YELLOW URINE TO GRAVITY. NO BM THIS SHIFT, PRN BOWEL MEDS GIVEN. LOTION APPLIED TO ARMS AND BACK. BED IN LOWEST POSITION, CALL LIGHT WITHIN REACH. CALLS APPROPRIATLEY AND MAKES NEEDS KNOWN.
[2023-05-27 14:49] VITALS: BP 127/59
[2023-05-27 15:58] VITALS: BP 127/63
--- NOTE | 2023-05-27 17:16 | NUR ---
NO ACUTE CHANGES THIS SHIFT. PATIENT PLEASANT AND COOPERATIVE. TOLERATING DIET. SKIN IMPROVING WITH OINTMENT AND LOTION AND REDNESS TO GROIN HAS IMPROVED WITH FUNGAL POWDER. REED TO GRAVITY WITH ADEQUATE U/O. PLAN IS TO D/C TO HOME TOMORROW WITH SON.
[2023-05-27 20:22] VITALS: BP 147/60
[2023-05-28 03:51] VITALS: BP 150/64
--- NOTE | 2023-05-28 05:10 | NUR ---
SHIFT SUMMARY: CLIFTON IS A&OX4. VSS, NO ACUTE EVENTS OVERNIGHT. REED PATENT, DRAINING TO GRAVITY, COLLECTION BAG HANGING ABOVE THE FLOOR. PT HAS NOT YET PRODUCED A BOWEL MOVEMENT DESPITE BOWEL CARE, BUT HAS BEEN PASSING GAS. PT ENCOURAGED TO TURN AND REPOSITION, HIPS AND LEFT FOOT FLOATED. ASPIRATION PRECAUTIONS IN PLACE, PT EDUCATED AND ENCOURAGED. HE IS TOLERATING PO INTAKE WELL. PT IS LYING IN BED WITH THE CALL LIGHT IN REACH. WILL GIVE REPORT TO DAY SHIFT RN.
[2023-05-28 05:36] LABS: Bun/Creatinine Ratio 15.8 (12.0-20.0); Calcium, Blood 8.8 mg/dL (8.5-10.1); Creatinine, Blood 1.58 mg/dL (0.60-1.20)
[2023-05-28 07:15] VITALS: BP 173/69
[2023-05-28] MEDS ORDERED: DOCU100 PO (11:29)
--- NOTE | 2023-05-28 14:06 | NUR ---
DISCHARGE NOTE PATIENT D/C'D TO HOME VIA GURNEY TRANSPORT. DC INSTRUCTIONS AND EDUCATION DISCUSSED WITH PATIENT AND COPY PROVIDED. RX MEDICATIONS FAXED TO [facility] TO CONTACT PATIENT FOR APPOINTMENT. PATIENT DENIES ANY FURTHER QUESTIONS OR CONCERNS.
== END 2023-05-28 13:43 | disposition home health service (06) ==
LOC: ER 14:41 → MEDS 14:42 → ER 05-17 14:42 → MEDS 05-17 17:51 → ENPENDDIS 05-20 17:36 → EDPENDDIS 05-20 17:36 → MEDS 05-28 13:43
PROVIDERS: Emergency Medicine; Family Medicine; Student in an Organized Health Care Education/Training Program; ADMIT Internal Medicine
DX: N39.0 Urinary tract infection, site not specified (principal); L89.90 Pressure ulcer of unspecified site, unspecified stage; E87.6 Hypokalemia; F41.9 Anxiety disorder, unspecified; N17.9 Acute kidney failure, unspecified; K59.00 Constipation, unspecified; N40.0 Benign prostatic hyperplasia without lower urinary tract symptoms; I13.0 Hypertensive heart and chronic kidney disease with heart failure and stage 1 through stage 4 chronic kidney disease, or unspecified chronic kidney disease; E11.22 Type 2 diabetes mellitus with diabetic chronic kidney disease; N18.32 Chronic kidney disease, stage 3b; I50.30 Unspecified diastolic (congestive) heart failure; Z89.511 Acquired absence of right leg below knee; Z88.8 Allergy status to other drugs, medicaments and biological substances; Z79.82 Long term (current) use of aspirin; Z79.4 Long term (current) use of insulin; Z79.899 Other long term (current) drug therapy
CPT/HCPCS: 36415; 51702; 80048; 80053; 80069; 81001; 82947; 85025; 87077; 87086; 87186; 92526; 92610; 96360; 96361; 96372; 97110; 97110-CO; 97163; 97166; 97530; 97530-CO; 99285-25; A9270; G0378; J1650; J1815; J7120

== ENCOUNTER 2023-06-05 12:40 | Emergency (ER) | payer OTHER ==
[~2023-06-05] VITALS: Ht 182.9 cm; Wt 105.2 kg
[~2023-06-05 12:40] MED LIST changes: +ALOGLIPTIN25 M1 PO; +BACTRIM DS TAB1 EAC6 PO; +DOCU100 PO; +INSULIN GL100 UNIT/2 SC; +K-Dur20 MEQ PO; +MUPIROCIN111; +PIOG15 PO; +SENN187 PO; +TAMS.4ER PO; +VISBIOME 112.51 EACH PO
[2023-06-05] MEDS ORDERED: Sennosides 8.6 MG Tab PO ONE (13:45)
[2023-06-05] MEDS ORDERED: MIRALAX17 GM PO (15:15)
[2023-06-05] MEDS ORDERED: Colace100 MG PO (15:15)
[2023-06-05] MEDS ORDERED: OXYM.05NI (15:15)
[2023-06-05 15:30] VITALS: BP 154/59
== END 2023-06-05 17:58 | disposition home or self-care (01) ==
LOC: ER 12:40
DX: K59.00 Constipation, unspecified (principal); R09.81 Nasal congestion; Z88.8 Allergy status to other drugs, medicaments and biological substances; Z79.899 Other long term (current) drug therapy; Z79.4 Long term (current) use of insulin; Z79.82 Long term (current) use of aspirin; I13.0 Hypertensive heart and chronic kidney disease with heart failure and stage 1 through stage 4 chronic kidney disease, or unspecified chronic kidney disease; E11.22 Type 2 diabetes mellitus with diabetic chronic kidney disease; N18.9 Chronic kidney disease, unspecified; I50.9 Heart failure, unspecified
CPT/HCPCS: 71045; 93005; 93010; 99284-25; A9270

== ENCOUNTER → 2023-12-15 | Outpatient (CLI) | payer OTHER ==
[~2023-12-15] MED LIST changes: +AMLO5 PO; -Amlodipine Bes2.5 MG PO; +CIPR500 PO; +Colace100 MG PO; +FURO20 PO; -FUROSEMIDE40 MG PO; +MIRALAX17 GM PO; -MUPIROCIN111; +MUPIROCIN111 TOP; +OXYM.05NI
[2023-12-15 12:22] LABS: Source, Urine Clean Catch
[2023-12-15 13:29] LABS: Appearance, Urine Hazy (Clear); Bilirubin, Urine Neg (Neg); Blood, Urine 4+ (Neg); Color, Urine Yellow (P-Yellow); Glucose Qualitative, Urine 4+ (Neg); Ketones, Urine Neg (Neg); Leukocyte Esterase, Urine 3+ (Neg); Nitrite, Urine Pos (Neg); Protein, Urine 4+ (Neg); Urobilinogen, Urine NORM (Normal)
[2023-12-15 13:49] LABS: Uric Acid Crystals Mod /hpf; White Blood Cells, Urine 25-50 /hpf (0-5)
[2023-12-15 13:50] LABS: Bacteria Many /hpf; Hyaline Casts 0-2 /lpf (0-2); Squamous Epithelial Cells Rare /hpf (Few)
[2023-12-15 13:51] LABS: Renal Epithelial Rare /hpf (0-Rare); Yeast/Fungi Urine Rare /hpf
== END | disposition home or self-care (01) ==
LOC: LAB SHORT 10:00 → LAB 10:00
PROVIDERS: Family Medicine
DX: N39.0 Urinary tract infection, site not specified (principal)
CPT/HCPCS: 81001; 87086

== ENCOUNTER 2024-01-06 18:19 | Inpatient (IN) | payer OTHER ==
[~2024-01-06] VITALS: Ht 177.8 cm; Wt 102.1 kg
[2024-01-06 21:14] LABS: BASOPHILS ABSOLUTE AUTO 0.08 K/mm3 (0.00-0.23); BASOPHILS PERCENT AUTO 0 % (0-2); EOSINOPHILS ABSOLUTE AUTO 0.01 K/mm3 (0.00-0.68); EOSINOPHILS PERCENT AUTO 0 % (0-6); Hematocrit 44.1 % (37.0-53.0); Hemoglobin 14.1 g/dL (13.5-17.5); IMMATURE GRAN ABSOLUTE AUTO 0.28 K/mm3 (0.00-0.10); IMMATURE GRAN PERCENT AUTO 1 % (0-1); LYMPHOCYTES ABSOLUTE AUTO 1.99 K/mm3 (0.84-5.20); LYMPHOCYTES PERCENT AUTO 7 % (21-46); MONOCYTES ABSOLUTE AUTO 2.19 K/mm3 (0.16-1.47); MONOCYTES PERCENT AUTO 7 % (4-13); Mean Corpuscular HGB 27.1 pg (26.0-34.0); Mean Corpuscular Volume 85 fL (80-100); Mean Platelet Volume 10.5 fL (9.1-12.4); NEUTROPHILS ABSOLUTE AUTO 24.95 K/mm3 (1.96-9.15); NEUTROPHILS PERCENT AUTO 85 % (41-73); Platelet Count 221 K/mm3 (150-400); RDW Coefficient Variation 15.8 % (11.7-14.2); RDW Standard Deviation 49.1 fL (35.1-46.3); Red Blood Cell Count 5.21 M/mm3 (4.30-5.90)
[2024-01-06 21:35] LABS: Albumin, Blood 2.4 g/dL (3.4-5.0); Albumin/Globulin Ratio 0.7 (0.8-1.8); Bilirubin, Total 0.7 mg/dL (0.1-1.0); Bun/Creatinine Ratio 16.7 (12.0-20.0); Calcium, Blood 8.3 mg/dL (8.5-10.1); Creatinine, Blood 1.5 mg/dL (0.60-1.20); Globulin, Blood 3.5 g/dL (2.2-4.0); Potassium, Blood 3.5 mmol/L (3.5-5.5); Total Protein, Blood 5.9 g/dL (6.4-8.2)
[2024-01-06] MEDS ORDERED: CefTRIAXone Sodium 2,000 MG in NS 100 ML IV ONE (21:45)
[2024-01-06] MEDS ORDERED: NS 1,000 ML IV SCH (21:50)
[2024-01-06 23:10] LABS: Source, Urine Foley catheter
[2024-01-06 23:24] LABS: Bilirubin, Urine Neg (Neg); Blood, Urine 3+ (Neg); Glucose Qualitative, Urine 2+ (Neg); Ketones, Urine Neg (Neg); Leukocyte Esterase, Urine 3+ (Neg); Nitrite, Urine Neg (Neg); Protein, Urine 4+ (Neg); Urobilinogen, Urine NORM (Normal)
[2024-01-06 23:54] LABS: Influenza A, PCR NEGATIVE (NEGATIVE); Influenza B, PCR NEGATIVE (NEGATIVE); Resp Syncytial Virus, PCR NEGATIVE (NEGATIVE); SARS-Cov-2 (COVID-19) PCR, MMC NEGATIVE (NEGATIVE)
[2024-01-06 23:55] LABS: Appearance, Urine Hazy (Clear); Color, Urine Yellow (P-Yellow)
[2024-01-06 23:56] LABS: Bacteria Many /hpf; Granular Casts 0-2 /lpf (0); Squamous Epithelial Cells Few /hpf (Few)
[2024-01-06 23:57] LABS: White Blood Cells, Urine TNTC /hpf (0-5)
[2024-01-07] MEDS ORDERED: Sennosides 8.6 MG Tab PO PRN (00:40)
[2024-01-07] MEDS ORDERED: Ondansetron HCl 2 MG / ML 2ML Vial IV PRN (00:40)
[2024-01-07] MEDS ORDERED: Acetaminophen 325 MG TABLET PO PRN (00:40)
[2024-01-07] MEDS ORDERED: Meropenem 1,000 MG in NS 100 ML IV ONE (00:50)
[2024-01-07] MEDS ORDERED: Lactated Ringer's 1,000 ML IV SCH ×2 (01:00→09:05)
[2024-01-07 03:31] LABS: BASOPHILS ABSOLUTE AUTO 0.06 K/mm3 (0.00-0.23); BASOPHILS PERCENT AUTO 0 % (0-2); EOSINOPHILS ABSOLUTE AUTO 0.05 K/mm3 (0.00-0.68); EOSINOPHILS PERCENT AUTO 0 % (0-6); Hematocrit 42.9 % (37.0-53.0); Hemoglobin 13.8 g/dL (13.5-17.5); IMMATURE GRAN PERCENT AUTO 1 % (0-1); LYMPHOCYTES PERCENT AUTO 8 % (21-46); MONOCYTES PERCENT AUTO 7 % (4-13); Mean Corpuscular HGB 27.2 pg (26.0-34.0); Mean Corpuscular HGB Conc 32.2 g/dL (31.5-36.5); Mean Corpuscular Volume 85 fL (80-100); Mean Platelet Volume 10.7 fL (9.1-12.4); NEUTROPHILS ABSOLUTE AUTO 23.19 K/mm3 (1.96-9.15); NEUTROPHILS PERCENT AUTO 84 % (41-73); Platelet Count 198 K/mm3 (150-400); RDW Coefficient Variation 15.9 % (11.7-14.2); RDW Standard Deviation 49.2 fL (35.1-46.3); Red Blood Cell Count 5.07 M/mm3 (4.30-5.90)
[2024-01-07 03:54] LABS: Albumin, Blood 2.4 g/dL (3.4-5.0); Albumin/Globulin Ratio 0.7 (0.8-1.8); Bilirubin, Total 0.7 mg/dL (0.1-1.0); Calcium, Blood 8.3 mg/dL (8.5-10.1); Creatinine, Blood 1.53 mg/dL (0.60-1.20); Globulin, Blood 3.5 g/dL (2.2-4.0); Potassium, Blood 3.5 mmol/L (3.5-5.5); Total Protein, Blood 5.9 g/dL (6.4-8.2)
[2024-01-07] MEDS ORDERED: Insulin Regular 100 UNIT/ML 10ML Vial SC SCH (06:00)
[2024-01-07] MEDS ORDERED: ATOR40TA PO (07:42)
[2024-01-07] MEDS ORDERED: GABA100 PO (07:42)
[2024-01-07] MEDS ORDERED: Aspirin 81 MG Chew PO SCH (09:00)
[2024-01-07] MEDS ORDERED: Meropenem 1,000 MG in NS 100 ML IV SCH (09:00)
[2024-01-07] MEDS ORDERED: Heparin Sodium,Porcine 5,000 UNIT/0.5 ML SDV SC SCH (09:00)
[2024-01-07] MEDS ORDERED: Lactobacil 2-S.Thermo-Bifido 1 1 Cap PO SCH (09:00)
[2024-01-07] MEDS ORDERED: ALPRAZolam 1 MG Tab PO SCH ×2 (10:01→14:00)
[2024-01-07 11:22] VITALS: BP 148/84
--- NOTE | 2024-01-07 11:45 | NUR ---
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, he is a/ox4, cooperative with care, follows commands well, denies pain at this time, lungs are clear t/o, resp even and unlabored, no cough noted, currenlty on r/a, hrr, no edema noted, ppp+1, +1 edema noted to left foot/ankle, maew, attempts to assist with turning but really needs two people to turn him, cap refill <3 sec, vs stable, afebrile, piv site is clear and patent, infusing lr as ordered, btx4, abd large soft nontender, incont of bowel/bladder, briefs in place, skin is intact except coccyx wound, pix in chart, placed mepilex over it, addison, call light in reach, his phone in reach, and bedside table.
[2024-01-07] MEDS ORDERED: AmLODIPine Besylate 5 MG Tab PO SCH (13:00)
[2024-01-07 16:25] VITALS: BP 181/79
--- NOTE | 2024-01-07 18:04 | NUR ---
Pt has had no acute changes this shift, slept a lot since arriving to room, no complaints, call light in reach.
[2024-01-07 19:56] VITALS: BP 169/68
[2024-01-07] MEDS ORDERED: NS 250 ML IV PRN (20:20)
[2024-01-07] MEDS ORDERED: Gabapentin 100 MG Cap PO SCH (21:00)
[2024-01-07] MEDS ORDERED: Metoprolol Tartrate 25 MG Tab PO SCH (21:00)
[2024-01-08 05:10] VITALS: BP 145/60
[2024-01-08 05:41] LABS: BASOPHILS ABSOLUTE AUTO 0.03 K/mm3 (0.00-0.23); BASOPHILS PERCENT AUTO 0 % (0-2); EOSINOPHILS ABSOLUTE AUTO 0.11 K/mm3 (0.00-0.68); EOSINOPHILS PERCENT AUTO 1 % (0-6); Hematocrit 41.6 % (37.0-53.0); Hemoglobin 13.5 g/dL (13.5-17.5); IMMATURE GRAN ABSOLUTE AUTO 0.07 K/mm3 (0.00-0.10); IMMATURE GRAN PERCENT AUTO 0 % (0-1); LYMPHOCYTES ABSOLUTE AUTO 1.81 K/mm3 (0.84-5.20); LYMPHOCYTES PERCENT AUTO 11 % (21-46); MONOCYTES ABSOLUTE AUTO 1.25 K/mm3 (0.16-1.47); MONOCYTES PERCENT AUTO 7 % (4-13); Mean Corpuscular HGB 27.4 pg (26.0-34.0); Mean Corpuscular HGB Conc 32.5 g/dL (31.5-36.5); Mean Corpuscular Volume 84 fL (80-100); Mean Platelet Volume 11.3 fL (9.1-12.4); NEUTROPHILS ABSOLUTE AUTO 13.77 K/mm3 (1.96-9.15); NEUTROPHILS PERCENT AUTO 81 % (41-73); Platelet Count 187 K/mm3 (150-400); RDW Coefficient Variation 15.9 % (11.7-14.2); RDW Standard Deviation 48.8 fL (35.1-46.3); Red Blood Cell Count 4.93 M/mm3 (4.30-5.90); White Blood Cell Count 17.04 K/mm3 (4.00-11.30)
--- NOTE | 2024-01-08 05:47 | NUR ---
SHIFT SUMMARY NOC PT A/O X 3-4. FORGETFUL AT TIMES BUT PLEASANT AND COOPERATIVE WITH CARE. BP ELEVATED. Q6H CBG 229 WITH 2 UNITS R INSULIN PER SLINDING SCALE GIVEN. 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 CHRONIC REED IN PLACE THAT WAS CHANGED IN ED. LR INFUSING @ 100 ML/HR. PT CURRENTLY RESTING WITH BED IN LOWEST POSITION, AND CALL LIGHT WITHIN REACH.
[2024-01-08 06:06] LABS: Albumin, Blood 2.1 g/dL (3.4-5.0); Albumin/Globulin Ratio 0.6 (0.8-1.8); Bilirubin, Total 0.5 mg/dL (0.1-1.0); Bun/Creatinine Ratio 15.6 (12.0-20.0); Calcium, Blood 8.4 mg/dL (8.5-10.1); Creatinine, Blood 1.28 mg/dL (0.60-1.20); Globulin, Blood 3.6 g/dL (2.2-4.0); Potassium, Blood 3.2 mmol/L (3.5-5.5); Total Protein, Blood 5.7 g/dL (6.4-8.2)
[2024-01-08] MEDS ORDERED: Potassium Chloride 20 MEQ TabCR PO ONE (07:00)
[2024-01-08] MEDS ORDERED: Insulin Human Lispro 100 Units/ML 3ML Syringe SC SCH (07:30)
[2024-01-08] MEDS ORDERED: Potassium Chloride 20 MEQ TabCR PO SCH (07:50)
[2024-01-08] MEDS ORDERED: Meropenem 1,000 MG in NS 100 ML IV SCH (08:00)
[2024-01-08 08:01] VITALS: BP 154/71
[2024-01-08] MEDS ORDERED: Tamsulosin HCl 0.4 MG Cap PO SCH (09:00)
[2024-01-08] MEDS ORDERED: Furosemide 20 MG Tab PO SCH (09:00)
[2024-01-08] MEDS ORDERED: Polyethylene Glycol 3350 17 gm PO SCH (09:00)
[2024-01-08] MEDS ORDERED: Atorvastatin 40 MG Tab PO SCH (09:00)
[2024-01-08] MEDS ORDERED: AmLODIPine Besylate 5 MG Tab PO SCH (09:00)
[2024-01-08] MEDS ORDERED: Bisacodyl 10 MG Supp PR PRN (11:10)
[2024-01-08 16:06] VITALS: BP 117/105
--- NOTE | 2024-01-08 19:13 | NUR ---
report received verified a/o x4 very pleasant and makes needs known. pt complained of constiation for 4 day but today was able to have 4 bm solid and loose stools. buttocks wounds were cleasnsed and covered with mepilex each time. pt worked was PT also and was very upset that they made him move so much, pt was able to sit at side of bed. harris intact and draining clear yellow. so far uneventful day.
[2024-01-08 19:46] VITALS: BP 188/93
[2024-01-09 05:04] VITALS: BP 138/67
--- NOTE | 2024-01-09 05:20 | NUR ---
SHIFT SUMMARY PT PLEASANT AND COOPERATIVE. LAB IN ROOM AT THIS TIME. BED IS IN LOW POSITION, CALL LIGHT IS WITHIN REACH. PT STS HE IS HARD OF HEARING IN HIS RIGHT EAR. WILL CONTINUE TO MONITOR.
[2024-01-09 06:03] LABS: BASOPHILS ABSOLUTE AUTO 0.03 K/mm3 (0.00-0.23); BASOPHILS PERCENT AUTO 0 % (0-2); EOSINOPHILS ABSOLUTE AUTO 0.14 K/mm3 (0.00-0.68); EOSINOPHILS PERCENT AUTO 1 % (0-6); Hemoglobin 13.9 g/dL (13.5-17.5); IMMATURE GRAN ABSOLUTE AUTO 0.05 K/mm3 (0.00-0.10); IMMATURE GRAN PERCENT AUTO 1 % (0-1); LYMPHOCYTES ABSOLUTE AUTO 1.49 K/mm3 (0.84-5.20); LYMPHOCYTES PERCENT AUTO 14 % (21-46); MONOCYTES ABSOLUTE AUTO 0.98 K/mm3 (0.16-1.47); MONOCYTES PERCENT AUTO 10 % (4-13); Mean Corpuscular HGB Conc 32.3 g/dL (31.5-36.5); Mean Corpuscular Volume 84 fL (80-100); NEUTROPHILS ABSOLUTE AUTO 7.64 K/mm3 (1.96-9.15); NEUTROPHILS PERCENT AUTO 74 % (41-73); Platelet Count 206 K/mm3 (150-400); RDW Coefficient Variation 15.4 % (11.7-14.2); RDW Standard Deviation 47.1 fL (35.1-46.3); Red Blood Cell Count 5.15 M/mm3 (4.30-5.90); White Blood Cell Count 10.33 K/mm3 (4.00-11.30)
[2024-01-09 06:30] LABS: Albumin, Blood 2.1 g/dL (3.4-5.0); Albumin/Globulin Ratio 0.6 (0.8-1.8); Bilirubin, Total 0.4 mg/dL (0.1-1.0); Bun/Creatinine Ratio 15.5 (12.0-20.0); Calcium, Blood 8.4 mg/dL (8.5-10.1); Creatinine, Blood 1.42 mg/dL (0.60-1.20); Globulin, Blood 3.8 g/dL (2.2-4.0); Potassium, Blood 3.6 mmol/L (3.5-5.5); Total Protein, Blood 5.9 g/dL (6.4-8.2)
[2024-01-09 07:20] VITALS: BP 112/69
[2024-01-09] MEDS ORDERED: CefTRIAXone Sodium 2,000 MG in NS 100 ML IV SCH (14:00)
--- NOTE | 2024-01-09 16:10 | NUR ---
REPORT RECEIVED VERIFIED, PT DOING WELL A/O VSS CLAIMS HE FEELS GOOD ENOUGH TO GO HOME. FED SELF BREAKFAST. PT REPOSITIONED Q 2 HOURS OR NEEDED. MD AWARE OF PT BEDSORE TO BUTTOCKS. PT SLEEPING UNTIL LUNCH - NO CHANGE. DR SALAS INTO SEE PT NEW ORDERS GIVEN REGARDING BLOOD SUGAR AND EXTENDED USE OF ANTIBIOTICS.
[2024-01-09 16:12] VITALS: BP 119/78
[2024-01-09] MEDS ORDERED: Insulin Human Lispro 100 Units/ML 3ML Syringe SC SCH (16:30)
[2024-01-09 19:41] VITALS: BP 173/70
[2024-01-09] MEDS ORDERED: Insulin Glargine-Yfgn 100 Unit/mL 3 ML SYR SC SCH (21:00)
[2024-01-09 22:00] VITALS: BP 153/67
[2024-01-10 05:02] VITALS: BP 181/74
[2024-01-10 05:18] LABS: BASOPHILS ABSOLUTE AUTO 0.02 K/mm3 (0.00-0.23); BASOPHILS PERCENT AUTO 0 % (0-2); EOSINOPHILS ABSOLUTE AUTO 0.28 K/mm3 (0.00-0.68); EOSINOPHILS PERCENT AUTO 3 % (0-6); Hematocrit 42.3 % (37.0-53.0); Hemoglobin 13.9 g/dL (13.5-17.5); IMMATURE GRAN ABSOLUTE AUTO 0.04 K/mm3 (0.00-0.10); IMMATURE GRAN PERCENT AUTO 1 % (0-1); LYMPHOCYTES ABSOLUTE AUTO 1.71 K/mm3 (0.84-5.20); LYMPHOCYTES PERCENT AUTO 21 % (21-46); MONOCYTES ABSOLUTE AUTO 1.01 K/mm3 (0.16-1.47); MONOCYTES PERCENT AUTO 12 % (4-13); Mean Corpuscular HGB 27.5 pg (26.0-34.0); Mean Corpuscular HGB Conc 32.9 g/dL (31.5-36.5); Mean Corpuscular Volume 84 fL (80-100); Mean Platelet Volume 11.7 fL (9.1-12.4); NEUTROPHILS ABSOLUTE AUTO 5.25 K/mm3 (1.96-9.15); NEUTROPHILS PERCENT AUTO 63 % (41-73); Platelet Count 198 K/mm3 (150-400); RDW Coefficient Variation 15.3 % (11.7-14.2); RDW Standard Deviation 46.8 fL (35.1-46.3); Red Blood Cell Count 5.05 M/mm3 (4.30-5.90); White Blood Cell Count 8.31 K/mm3 (4.00-11.30)
[2024-01-10 05:40] VITALS: BP 160/66
[2024-01-10 05:50] LABS: Bun/Creatinine Ratio 20.7 (12.0-20.0); Calcium, Blood 8.6 mg/dL (8.5-10.1); Creatinine, Blood 1.11 mg/dL (0.60-1.20); Potassium, Blood 3.5 mmol/L (3.5-5.5)
[2024-01-10 07:23] VITALS: BP 173/75
[2024-01-10] MEDS ORDERED: HydrALAZINE HCl 10 MG Tab PO PRN (08:10)
[2024-01-10] MEDS ORDERED: CefOXitin Sodium 1,000 MG in NS 50 ML IV SCH (08:21)
[2024-01-10] MEDS ORDERED: Meropenem 1,000 MG in NS 100 ML IV SCH (08:34)
[2024-01-10] MEDS ORDERED: Losartan Potassium 25 MG Tab PO SCH (09:00)
--- NOTE | 2024-01-10 15:05 | NUR ---
REPORT RECEIVED VERIFIED PT A/O VSS PT DOING VERY WELL THIS MORNING AND IS EXPRESSING DESIRE TO GO HOME AND CONTINUE THERAPY. PT CALLS APPROPRIATLY AND IS ABLE TO MAKE NEEDS KNOW. PT TURNED AND LINEN CHANGED. 1100 DR SALAS INTO SEE PT AND DISCUSSED TREATMENT OPPOSED TO HOME HOSPICE, PALLITIVE CARE TO BE NOTIFIED. PT HAS HAD OBSERVABLE CHANGE IN MOOD AND SEEMS MORE DEPRESSED AND HAS WITHDRAWN FROM NORMAL CONVERESATION. PT SLEEPING NOW AND HAS BEEN TURNED Q 2 HOURS
[2024-01-10 15:52] VITALS: BP 159/65
[2024-01-10] MEDS ORDERED: Insulin Human Lispro 100 Units/ML 3ML Syringe SC SCH (17:30)
[2024-01-10 20:25] VITALS: BP 176/72
[2024-01-10] MEDS ORDERED: Insulin Glargine-Yfgn 100 Unit/mL 3 ML SYR SC SCH (21:00)
[2024-01-10 23:39] VITALS: BP 151/65
[2024-01-11 04:36] VITALS: BP 160/64
[2024-01-11 05:28] LABS: BASOPHILS ABSOLUTE AUTO 0.04 K/mm3 (0.00-0.23); BASOPHILS PERCENT AUTO 0 % (0-2); EOSINOPHILS ABSOLUTE AUTO 0.37 K/mm3 (0.00-0.68); EOSINOPHILS PERCENT AUTO 4 % (0-6); Hematocrit 42.8 % (37.0-53.0); Hemoglobin 13.8 g/dL (13.5-17.5); IMMATURE GRAN ABSOLUTE AUTO 0.07 K/mm3 (0.00-0.10); IMMATURE GRAN PERCENT AUTO 1 % (0-1); LYMPHOCYTES ABSOLUTE AUTO 1.88 K/mm3 (0.84-5.20); LYMPHOCYTES PERCENT AUTO 21 % (21-46); MONOCYTES ABSOLUTE AUTO 0.87 K/mm3 (0.16-1.47); MONOCYTES PERCENT AUTO 10 % (4-13); Mean Corpuscular HGB 26.7 pg (26.0-34.0); Mean Corpuscular HGB Conc 32.2 g/dL (31.5-36.5); Mean Corpuscular Volume 83 fL (80-100); Mean Platelet Volume 10.2 fL (9.1-12.4); NEUTROPHILS PERCENT AUTO 65 % (41-73); Platelet Count 208 K/mm3 (150-400); RDW Coefficient Variation 14.8 % (11.7-14.2); RDW Standard Deviation 45.4 fL (35.1-46.3); Red Blood Cell Count 5.17 M/mm3 (4.30-5.90); White Blood Cell Count 9.13 K/mm3 (4.00-11.30)
--- NOTE | 2024-01-11 05:53 | NUR ---
MASS SPEC NOTE PATIENT IS A&OX4, BP ARE SLIGHTLY ELEVATED, BP MEDS GIVEN WHICH HELP DECREASE A LITTLE. PATIENT IS ON ROOM AIR, NO TELE ORDERED, PATIENT DENIED ANY PAIN. PATIENT IS ON ISOLATION FOR ESBL IN THE URINE. PATIENT HAVE REED CATHETER IN AND IT'S DRAINING WELL.
[2024-01-11 05:59] LABS: Albumin, Blood 2.1 g/dL (3.4-5.0); Anion Gap 12 mmol/L (3-11); Blood Urea Nitrogen 21 mg/dL (8-24); Bun/Creatinine Ratio 17.1 (12.0-20.0); CO2, Blood 24 mmol/L (21-32); Calcium, Blood 8.7 mg/dL (8.5-10.1); Chloride, Blood 104 mmol/L (98-108); Creatinine, Blood 1.23 mg/dL (0.60-1.20); Glomerular Filtration Rate 58 (60-); Glucose, Blood 249 mg/dL (70-99); Phosphorus, Blood 2.2 mg/dL (2.5-4.9); Potassium, Blood 3.4 mmol/L (3.5-5.5); Sodium, Blood 137 mmol/L (136-145)
[2024-01-11] MEDS ORDERED: Potassium Chloride 20 MEQ TabCR PO ONE (07:20)
[2024-01-11 07:55] VITALS: BP 167/70
[2024-01-11] MEDS ORDERED: Empagliflozin 10 MG TAB PO SCH (09:00)
[2024-01-11 16:46] VITALS: BP 141/66
--- NOTE | 2024-01-11 18:31 | NUR ---
SHIFT SUMMARY PT IS A/OX4. CHRONIC REED IN PLACE DRAINING CLEAR, YELLOW URINE. MEPILEX TO SACRAL WOUND CHANGED TWICE THIS SHIFT, ONCE THIS MORNING, AND ONCE AFTER A BM THIS AFTERNOON. PT IS ON RA, NO TELE. NO ACUTE EVENTS THROUGHOUT THIS SHIFT. PLAN IS TO DISCHARGE TO SNF WITH POWERGLIDE, AWAITING ACCEPTENCE TO [facility], AND CONTINUE ANTIBIOTIC THERAPY. CALLS APPROPRIATELY USING THE CALL LIGHT.
[2024-01-11 20:20] VITALS: BP 180/74
[2024-01-12 04:35] VITALS: BP 149/60
--- NOTE | 2024-01-12 05:35 | NUR ---
DIRECTOR BUSINESS MANAGEMENT PATIENT IS A&OX4, BP SLIGHTLY ELEVATED, ON ROOM AIR, NOT ON TELE. PATIENT DENIED ANY PAIN. PATIENT CALLS APPROPRIATELY PLAN IS WAITING TO BE ACCEPTED AT A SNF.
[2024-01-12 05:39] LABS: BASOPHILS ABSOLUTE AUTO 0.05 K/mm3 (0.00-0.23); BASOPHILS PERCENT AUTO 0 % (0-2); EOSINOPHILS PERCENT AUTO 4 % (0-6); Hematocrit 43.3 % (37.0-53.0); Hemoglobin 14.1 g/dL (13.5-17.5); IMMATURE GRAN ABSOLUTE AUTO 0.18 K/mm3 (0.00-0.10); IMMATURE GRAN PERCENT AUTO 2 % (0-1); LYMPHOCYTES ABSOLUTE AUTO 2.08 K/mm3 (0.84-5.20); LYMPHOCYTES PERCENT AUTO 18 % (21-46); MONOCYTES ABSOLUTE AUTO 0.86 K/mm3 (0.16-1.47); MONOCYTES PERCENT AUTO 8 % (4-13); Mean Corpuscular HGB 26.7 pg (26.0-34.0); Mean Corpuscular HGB Conc 32.6 g/dL (31.5-36.5); Mean Corpuscular Volume 82 fL (80-100); Mean Platelet Volume 10.4 fL (9.1-12.4); NEUTROPHILS ABSOLUTE AUTO 7.86 K/mm3 (1.96-9.15); NEUTROPHILS PERCENT AUTO 69 % (41-73); Platelet Count 229 K/mm3 (150-400); RDW Coefficient Variation 14.9 % (11.7-14.2); RDW Standard Deviation 44.8 fL (35.1-46.3); Red Blood Cell Count 5.29 M/mm3 (4.30-5.90); White Blood Cell Count 11.43 K/mm3 (4.00-11.30)
[2024-01-12 05:59] LABS: Bun/Creatinine Ratio 18.4 (12.0-20.0); Calcium, Blood 8.6 mg/dL (8.5-10.1); Creatinine, Blood 1.25 mg/dL (0.60-1.20); Potassium, Blood 3.5 mmol/L (3.5-5.5)
[2024-01-12 07:28] VITALS: BP 172/63
[2024-01-12] MEDS ORDERED: AmLODIPine Besylate 5 MG Tab PO SCH (09:00)
[2024-01-12] MEDS ORDERED: Simethicone 80 MG Chew PO ONE (09:00)
[2024-01-12] MEDS ORDERED: ATOR10 PO (13:42)
[2024-01-12] MEDS ORDERED: ASPI81CH PO (13:59)
[2024-01-12] MEDS ORDERED: AMLO10 PO (13:59)
[2024-01-12] MEDS ORDERED: LOSA25 PO (14:00)
[2024-01-12] MEDS ORDERED: JARDIANCE10 MG PO (14:00)
[2024-01-12] MEDS ORDERED: MEROPENEM1 G1 IV (14:01)
[2024-01-12] MEDS ORDERED: VISBIOME 112.51 EACH PO (14:02)
[2024-01-12 14:53] VITALS: BP 142/70
--- NOTE | 2024-01-12 15:45 | NUR ---
PT DISCHARGED TO [facility]IA [facility]. SON PRESENT WITH THE PT AT TIME OF DISCHARGE. ALL VALUABLES RETURNED AND SENT WITH THE PT AT TIME OF DISCHARGE. [facility] CALLED AND GIVEN REPORT ON THE PT.
== END 2024-01-12 15:44 | DRG 698 ==
LOC: ER 18:19 → ERHOLD 18:20 → MEDS 01-07 11:06
PROVIDERS: Family Medicine Adult Medicine; Student in an Organized Health Care Education/Training Program; ADMIT Student in an Organized Health Care Education/Training Program
PROC: 3E03329 Introduction of Other Anti-infective into Peripheral Vein, Percutaneous Approach (ICD-10-PCS; principal; 2024-01-07)
PROC: 0T9B70Z Drainage of Bladder with Drainage Device, Via Natural or Artificial Opening (ICD-10-PCS; 2024-01-07)
DX: T83.511A Infection and inflammatory reaction due to indwelling urethral catheter, initial encounter (principal); A41.59 Other Gram-negative sepsis; R65.20 Severe sepsis without septic shock; G93.41 Metabolic encephalopathy; I13.0 Hypertensive heart and chronic kidney disease with heart failure and stage 1 through stage 4 chronic kidney disease, or unspecified chronic kidney disease; I50.32 Chronic diastolic (congestive) heart failure; N17.9 Acute kidney failure, unspecified; N39.0 Urinary tract infection, site not specified; N18.32 Chronic kidney disease, stage 3b; L89.152 Pressure ulcer of sacral region, stage 2; E11.51 Type 2 diabetes mellitus with diabetic peripheral angiopathy without gangrene; E11.22 Type 2 diabetes mellitus with diabetic chronic kidney disease; I95.9 Hypotension, unspecified; E86.0 Dehydration; K59.09 Other constipation; F41.9 Anxiety disorder, unspecified; N40.0 Benign prostatic hyperplasia without lower urinary tract symptoms; Z98.890 Other specified postprocedural states; Z89.511 Acquired absence of right leg below knee; Z86.73 Personal history of transient ischemic attack (TIA), and cerebral infarction without residual deficits; Z88.8 Allergy status to other drugs, medicaments and biological substances; Z79.4 Long term (current) use of insulin; Z79.82 Long term (current) use of aspirin; Z79.899 Other long term (current) drug therapy; Y84.6 Urinary catheterization as the cause of abnormal reaction of the patient, or of later complication, without mention of misadventure at the time of the procedure
CPT/HCPCS: 0241U; 36415; 51702; 71046; 80048; 80053; 80069; 81001; 82947; 83605; 83735; 85025; 87040; 87077; 87086; 87186; 93005; 93010; 96361-59; 96365; 96366; 96366-59; 96367; 96367-59; 96372-59; 97110; 97162; 97530; 99285-25; A9270; C1751; G0378; J0696; J1644; J1815; J2185; J7030; J7050; J7120

== ENCOUNTER → 2024-04-22 | Outpatient (CLI) | payer OTHER ==
[~2024-04-22] MED LIST changes: +AMLO10 PO; +ATOR10 PO; +ATOR40TA PO; +GABA100 PO; +JARDIANCE10 MG PO; +LOSA25 PO; +MEROPENEM1 G1 IV
[2024-04-22 10:02] LABS: Source, Urine Clean Catch
[2024-04-22 10:49] LABS: Appearance, Urine Hazy (Clear); Bilirubin, Urine Neg (Neg); Blood, Urine 2+ (Neg); Glucose Qualitative, Urine 1+ (Neg); Ketones, Urine Neg (Neg); Leukocyte Esterase, Urine 2+ (Neg); Nitrite, Urine Neg (Neg); Protein, Urine 3+ (Neg); Urobilinogen, Urine NORM (Normal)
[2024-04-22 10:58] LABS: BASOPHILS ABSOLUTE AUTO 0.04 K/mm3 (0.00-0.23); BASOPHILS PERCENT AUTO 0 % (0-2); EOSINOPHILS ABSOLUTE AUTO 0.46 K/mm3 (0.00-0.68); EOSINOPHILS PERCENT AUTO 5 % (0-6); Hematocrit 45.6 % (37.0-53.0); IMMATURE GRAN ABSOLUTE AUTO 0.04 K/mm3 (0.00-0.10); IMMATURE GRAN PERCENT AUTO 0 % (0-1); LYMPHOCYTES ABSOLUTE AUTO 2.71 K/mm3 (0.84-5.20); LYMPHOCYTES PERCENT AUTO 29 % (21-46); MONOCYTES PERCENT AUTO 9 % (4-13); Mean Corpuscular HGB 28.1 pg (26.0-34.0); Mean Corpuscular HGB Conc 32.9 g/dL (31.5-36.5); Mean Corpuscular Volume 85 fL (80-100); Mean Platelet Volume 10.8 fL (9.1-12.4); NEUTROPHILS ABSOLUTE AUTO 5.33 K/mm3 (1.96-9.15); NEUTROPHILS PERCENT AUTO 57 % (41-73); Platelet Count 204 K/mm3 (150-400); RDW Coefficient Variation 15.1 % (11.7-14.2); RDW Standard Deviation 46.9 fL (35.1-46.3); Red Blood Cell Count 5.34 M/mm3 (4.30-5.90); White Blood Cell Count 9.38 K/mm3 (4.00-11.30)
[2024-04-22 11:11] LABS: Color, Urine Pale Yellow (P-Yellow)
[2024-04-22 11:12] LABS: Amorphous Light (0-Heavy); Bacteria Mod /hpf; Squamous Epithelial Cells Few /hpf (Few)
[2024-04-22 13:44] LABS: Alanine Aminotransfer (ALT/SGP 12 U/L (12-78); Albumin, Blood 2.8 g/dL (3.4-5.0); Albumin/Globulin Ratio 0.8 (0.8-1.8); Alk Phos 80 U/L (50-136); Anion Gap 11 mmol/L (3-11); Aspartate Aminotrans (AST/SGOT 11 U/L (12-37); Bilirubin, Total 0.5 mg/dL (0.1-1.0); Blood Urea Nitrogen 22 mg/dL (8-24); Bun/Creatinine Ratio 17.1 (12.0-20.0); CHOL/HDL RATIO 4.1; CO2, Blood 27 mmol/L (21-32); Calcium, Blood 8.8 mg/dL (8.5-10.1); Chloride, Blood 105 mmol/L (98-108); Cholesterol 157 mg/dL (50-200); Creatinine, Blood 1.29 mg/dL (0.60-1.20); Globulin, Blood 3.6 g/dL (2.2-4.0); Glomerular Filtration Rate 55 (60-); Glucose, Blood 137 mg/dL (70-99); HDL Cholesterol 38 mg/dL (>39); LDL/HDL RATIO 2.8; Low Density Lipoprotein Chol 105 mg/dL (0-110); Potassium, Blood 3.5 mmol/L (3.5-5.5); Sodium, Blood 139 mmol/L (136-145); Total Protein, Blood 6.4 g/dL (6.4-8.2); Triglycerides 68 mg/dL (30-160); Very Low Density Lipoprot Chol 13 mg/dL (6-32)
== END ==
LOC: LAB SHORT 09:00 → LAB 09:00
PROVIDERS: Family Medicine; Nurse Practitioner Family
DX: E78.00 Pure hypercholesterolemia, unspecified (principal); E11.9 Type 2 diabetes mellitus without complications; F41.9 Anxiety disorder, unspecified; I10 Essential (primary) hypertension; N39.490 Overflow incontinence; N42.9 Disorder of prostate, unspecified; Z79.4 Long term (current) use of insulin; R30.0 Dysuria
CPT/HCPCS: 80053; 80061; 81001; 84153; 84443; 85025; 87086

== ENCOUNTER 2024-06-02 14:28 | Emergency (ER) | payer OTHER ==
[~2024-06-02] VITALS: Ht 188 cm; Wt 113.4 kg
[2024-06-02 15:42] VITALS: BP 157/76
== END 2024-06-02 20:03 | disposition home or self-care (01) ==
LOC: ER 14:28
DX: L91.8 Other hypertrophic disorders of the skin (principal); E11.22 Type 2 diabetes mellitus with diabetic chronic kidney disease; I13.0 Hypertensive heart and chronic kidney disease with heart failure and stage 1 through stage 4 chronic kidney disease, or unspecified chronic kidney disease; I50.30 Unspecified diastolic (congestive) heart failure; N18.32 Chronic kidney disease, stage 3b; E11.51 Type 2 diabetes mellitus with diabetic peripheral angiopathy without gangrene; N40.1 Benign prostatic hyperplasia with lower urinary tract symptoms; N13.8 Other obstructive and reflux uropathy; Z96.0 Presence of urogenital implants; Z86.73 Personal history of transient ischemic attack (TIA), and cerebral infarction without residual deficits; Z88.8 Allergy status to other drugs, medicaments and biological substances; Z79.4 Long term (current) use of insulin; Z79.82 Long term (current) use of aspirin; Z79.84 Long term (current) use of oral hypoglycemic drugs; Z79.899 Other long term (current) drug therapy
CPT/HCPCS: 99283

== ENCOUNTER 2024-11-17 12:33 | Inpatient (IN) | payer OTHER ==
[~2024-11-17] VITALS: Ht 188 cm; Wt 122.5 kg
[2024-11-17 14:15] LABS: Alanine Aminotransfer (ALT/SGP 15.0 U/L (12-78); Albumin, Blood 2.3 g/dL (3.4-5.0); Albumin/Globulin Ratio 0.5 (0.8-1.8); Anion Gap 6.0 mmol/L (3-11); Aspartate Aminotrans (AST/SGOT 17.0 U/L (12-37); Bilirubin, Total 0.5 mg/dL (0.1-1.0); Blood Urea Nitrogen 28.0 mg/dL (8-24); CO2, Blood 27.0 mmol/L (21-32); Calcium, Blood 8.1 mg/dL (8.5-10.1); Chloride, Blood 104.0 mmol/L (98-108); Creatinine, Blood 1.45 mg/dL (0.60-1.20); Globulin, Blood 4.2 g/dL (2.2-4.0); Glucose, Blood 82.0 mg/dL (70-99); Potassium, Blood 4.1 mmol/L (3.5-5.5); Sodium, Blood 133.0 mmol/L (136-145); Total Protein, Blood 6.5 g/dL (6.4-8.2)
[2024-11-17 15:50] LABS: Source, Urine Foley catheter
[2024-11-17 16:04] LABS: Bilirubin, Urine Neg (Neg); Glucose Qualitative, Urine Neg (Neg); Ketones, Urine 1+ (Neg); Leukocyte Esterase, Urine 3+ (Neg); Protein, Urine 4+ (Neg); Specific Gravity, Urine 1.010 (1.003-1.022); Urobilinogen, Urine NORM (Normal)
[2024-11-17 17:43] LABS: Color, Urine Pale Yellow (P-Yellow)
[2024-11-17 17:44] LABS: White Blood Cells, Urine TNTC /hpf (0-5)
[2024-11-17] MEDS ORDERED: CefTRIAXone Sodium 1,000 MG in NS 100 ML IV ONE (18:05)
[2024-11-17 19:11] LABS: BASOPHILS ABSOLUTE AUTO 0.05 K/mm3 (0.00-0.23); BASOPHILS PERCENT AUTO 0 % (0-2); EOSINOPHILS ABSOLUTE AUTO 0.13 K/mm3 (0.00-0.68); EOSINOPHILS PERCENT AUTO 1 % (0-6); Hematocrit 38.1 % (37.0-53.0); Hemoglobin 12.3 g/dL (13.5-17.5); IMMATURE GRAN ABSOLUTE AUTO 0.08 K/mm3 (0.00-0.10); IMMATURE GRAN PERCENT AUTO 0 % (0-1); LYMPHOCYTES ABSOLUTE AUTO 2.57 K/mm3 (0.84-5.20); LYMPHOCYTES PERCENT AUTO 11 % (21-46); MONOCYTES ABSOLUTE AUTO 1.51 K/mm3 (0.16-1.47); MONOCYTES PERCENT AUTO 7 % (4-13); Mean Corpuscular HGB Conc 32.3 g/dL (31.5-36.5); Mean Corpuscular Volume 88 fL (80-100); NEUTROPHILS ABSOLUTE AUTO 18.37 K/mm3 (1.96-9.15); NEUTROPHILS PERCENT AUTO 81 % (41-73); NRBC ABSOLUTE 0.00 K/mm3 (0.00-0.02); NRBC Auto 0.0 /100 WBC (0.0-0.2); Platelet Count 205 K/mm3 (150-400); RDW Coefficient Variation 16.8 % (11.7-14.2); RDW Standard Deviation 53.3 fL (35.1-46.3)
[2024-11-17] MEDS ORDERED: Ondansetron HCl 2 MG / ML 2ML Vial IV PRN (19:25)
[2024-11-17] MEDS ORDERED: Lactobacil 2-S.Thermo-Bifido 1 1 Cap PO SCH (21:00)
[2024-11-17] MEDS ORDERED: NS 250 ML IV PRN (21:35)
[2024-11-17 22:08] VITALS: BP 162/56
[2024-11-17] MEDS ORDERED: AMLO5 PO (23:48)
[2024-11-18] VITALS (7 sets, daily range): BP systolic 143–172; BP diastolic 51–70
[2024-11-18] MEDS ORDERED: ZINC OXIDE/PETROLATUM, YELLOW 1 APPLIC/71 GM PASTE TOP PRN (02:25)
[2024-11-18 04:55] LABS: BASOPHILS ABSOLUTE AUTO 0.02 K/mm3 (0.00-0.23); BASOPHILS PERCENT AUTO 0 % (0-2); EOSINOPHILS ABSOLUTE AUTO 0.26 K/mm3 (0.00-0.68); EOSINOPHILS PERCENT AUTO 2 % (0-6); Hematocrit 37.3 % (37.0-53.0); Hemoglobin 12.0 g/dL (13.5-17.5); IMMATURE GRAN ABSOLUTE AUTO 0.06 K/mm3 (0.00-0.10); IMMATURE GRAN PERCENT AUTO 0 % (0-1); LYMPHOCYTES ABSOLUTE AUTO 2.32 K/mm3 (0.84-5.20); LYMPHOCYTES PERCENT AUTO 15 % (21-46); MONOCYTES ABSOLUTE AUTO 1.17 K/mm3 (0.16-1.47); MONOCYTES PERCENT AUTO 8 % (4-13); Mean Corpuscular HGB Conc 32.2 g/dL (31.5-36.5); Mean Corpuscular Volume 86 fL (80-100); NEUTROPHILS ABSOLUTE AUTO 11.28 K/mm3 (1.96-9.15); NEUTROPHILS PERCENT AUTO 75 % (41-73); NRBC ABSOLUTE 0.00 K/mm3 (0.00-0.02); NRBC Auto 0.0 /100 WBC (0.0-0.2); Platelet Count 191 K/mm3 (150-400); RDW Coefficient Variation 16.9 % (11.7-14.2); RDW Standard Deviation 52.9 fL (35.1-46.3)
--- NOTE | 2024-11-18 04:57 | NUR ---
SHIFT SUMMARY PT ARRIVED FROM ER AT 2155. ORIENTED TO ROOM. PICTURES TAKEN OF PT'S EXCORIATED COCCYX AND PLACED IN CHART. NEW FOAM DRESSING APPLIED. IV ABX GIVEN PER EMAR. PT DENIED ANY FURTHER CP. REED IN PLACE AND DRAINING TO GRAVITY. VSS BUT BP SOMEWHAT ELEVATED WITH SYSTOLIC IN THE 150's-160's. PT SR IN THE 70's ON TELE. REPOSITIONED T/O NIGHT. BED IN LOWEST POSITION AND CALL LIGHT IN REACH.
[2024-11-18 05:27] LABS: Alanine Aminotransfer (ALT/SGP 10.0 U/L (12-78); Albumin, Blood 2.1 g/dL (3.4-5.0); Albumin/Globulin Ratio 0.6 (0.8-1.8); Anion Gap 6.0 mmol/L (3-11); Aspartate Aminotrans (AST/SGOT 9.0 U/L (12-37); Bilirubin, Total 0.4 mg/dL (0.1-1.0); Blood Urea Nitrogen 30.0 mg/dL (8-24); CO2, Blood 27.0 mmol/L (21-32); Calcium, Blood 7.7 mg/dL (8.5-10.1); Chloride, Blood 104.0 mmol/L (98-108); Creatinine, Blood 1.38 mg/dL (0.60-1.20); Globulin, Blood 3.4 g/dL (2.2-4.0); Glucose, Blood 138.0 mg/dL (70-99); Magnesium, Blood 2.0 mg/dL (1.6-2.4); Potassium, Blood 3.5 mmol/L (3.5-5.5); Sodium, Blood 133.0 mmol/L (136-145); Total Protein, Blood 5.5 g/dL (6.4-8.2)
--- NOTE | 2024-11-18 06:42 | NUR ---
TELE CALLED, STATING THAT PT HAD A 5.5 SECOND PAUSE. PT ASYMPTOMATIC AND DENIED CP. PT STATED HE HAS AN ARRYTHMIA AND THAT, "SOMETIMES MY HEART STOPS BEATING". PT BACK TO NORMAL SINUS RHYTHM IN THE 70's.
[2024-11-18] MEDS ORDERED: Insulin Regular 100 UNIT/ML 10ML Vial SC SCH (07:30)
[2024-11-18] MEDS ORDERED: PIOG30 PO (08:16)
[2024-11-18] MEDS ORDERED: POTCHL20ER PO (08:22)
[2024-11-18] MEDS ORDERED: Miconazole Nitrate 2% 85 GM PWD TOP SCH (09:00)
--- NOTE | 2024-11-18 11:24 | NUR ---
MD CALL EMERGENCY PAGE FROM [facility] FOR SEVEN SECOND PAUSE FOLLOWED BY 12 BEATS OF SR FOLLOWED BY ANOTHER PAUSE. RN AND CYBER OPERATOR WITH PT AT THE TIME. HE WAS ROLLED OVER ON HIS LEFT SIDE GETTING A BED BATH. NO LOSS OF CONSIOUSNESS. HE DID ADMIT TO SOME LIGHTHEADEDNESS WHICH HAS RESOLVED. VITAL SIGNS TAKEN. DR LU NOTIFIED. TELEPHONE ORDER FOR ECG BEING DONE NOW.
[2024-11-18] MEDS ORDERED: Insulin Human Lispro 100 Units/ML 3ML Syringe SC SCH (11:30)
--- NOTE | 2024-11-18 15:04 | NUR ---
NOTIFY CALL FROM SCRAP DEALER WITH SIX SECOND PAUSE. DIRECTOR OF RESTAURANT OPERATIONS WAS CLOSE TO ALLIGATOR SHEAR OPERATOR AND WAS NOTIFIED OF PAUSE. DR LU WAS CALLED AND NOTIFIED. PT WAS ASYMPTOMATIC, WAS TURNING AT THE TIME WITH RN AND MIDWIFE WITH HIM. NO DIZZYNESS THIS TIME. VITAL SIGNS TAKEN.
--- NOTE | 2024-11-18 16:42 | NUR ---
SHIFT SUMMARY MR LINDA IS VERY [place], DEAF IN HIS LEFT EAR. ORIENTATED X4, GOOD MEMORY AND APPROPRIATE ANSWERS TO ALL QUESTIONS AND APPROPRIATE CONVERSATION. SR WITH 1ST DEGREE BLOCK ON TELEMETRY WITH SEVERAL PAUSES (PREVIOUSLY DOCUMENTED). HE DID HAVE SOME LIGHTHEADEDNESS WHEN HE HAD THE 7 SECOND PAUSE ALMOST IMMEDIATELY FOLLOWED BY A SECOND PAUSE, BUT THE NEXT 6 SECOND PAUSE HE DENIED ANY SYMPTOMS. THE PAUSES HAPPENED WHEN HE WAS ROLLING ONTO HIS LEFT SIDE TO BE CLEANED. HE WAS SEEN BY HANDBAG PARTS CUTTER AND HE DECLINED A PACEMAKER. HIS SON VISITED AND WAS UPDATED ON EVENTS. MR LINDA SAID THAT IS HIS HEART STOPS AND DOESN'T RESTART HE WILL GO TO [facility]. WHEN ASKED IF HE WOULD WANT CHEST COMPRESSIONS HE SAID YES. HE WAS VISITED BY PALLIATIVE CARE RN ALISA TO MAKE SURE THAT HE HAD A FULL UNDERSTANDING OF CPR. MR LINDA DESCRIBES NOT BEING ABLE TO DO MUCH FOR HIMSELF AT HOME. HE HAS A MECHANICAL LIFT AND GETS UP TO ONE OF HIS WHEELCHAIRS. HE LIVES WITH HIS SON AND HAS CARE GIVERS ALSO. BED LOW, CALL LIGHT IN REACH AND USED APPROPRIATELY.
[2024-11-18] MEDS ORDERED: CefTRIAXone Sodium 1,000 MG in NS 100 ML IV SCH (19:00)
[2024-11-18] MEDS ORDERED: Insulin Glargine-Yfgn 100 Unit/mL 3 ML SYR SC SCH (21:00)
[2024-11-19] VITALS: BP 150/58
[2024-11-19 04:59] VITALS: BP 146/62
--- NOTE | 2024-11-19 06:00 | NUR ---
SHIFT SUMMARY PT A&Ox4. NO C/O PAIN. HOWEVER, PT REPORTS ANXIETY, AND VERBERALIZED FRUSTRATION THAT THE XANAX WAS NOT ABLE TO BE GIVEN AT HS D/T DOSEING INTERVAL AND THAT IT IS SCHEDULED DIFFERENTLY THAN HIS HOME REGIMEN. DR CALLED AND ONE TIME ORDER GIVEN FOR XANAX. BG WAS 191 AT HS AND INSULIN GLARGINE GIVEN PER EMAR. CONTINUING IV ABX. NO EVENTS ON TELE. REED DRAINING LIGHT YELLOW URINE. BED IN LOWEST POSITIOIN AND CALL LIGHT IN REACH.
[2024-11-19 06:06] LABS: BASOPHILS ABSOLUTE AUTO 0.03 K/mm3 (0.00-0.23); BASOPHILS PERCENT AUTO 0 % (0-2); EOSINOPHILS ABSOLUTE AUTO 0.33 K/mm3 (0.00-0.68); EOSINOPHILS PERCENT AUTO 3 % (0-6); Hematocrit 39.2 % (37.0-53.0); Hemoglobin 12.6 g/dL (13.5-17.5); IMMATURE GRAN ABSOLUTE AUTO 0.04 K/mm3 (0.00-0.10); IMMATURE GRAN PERCENT AUTO 0 % (0-1); LYMPHOCYTES ABSOLUTE AUTO 1.88 K/mm3 (0.84-5.20); LYMPHOCYTES PERCENT AUTO 19 % (21-46); MONOCYTES ABSOLUTE AUTO 0.72 K/mm3 (0.16-1.47); MONOCYTES PERCENT AUTO 7 % (4-13); Mean Corpuscular HGB Conc 32.1 g/dL (31.5-36.5); Mean Corpuscular Volume 86 fL (80-100); NEUTROPHILS ABSOLUTE AUTO 6.67 K/mm3 (1.96-9.15); NEUTROPHILS PERCENT AUTO 69 % (41-73); NRBC ABSOLUTE 0.00 K/mm3 (0.00-0.02); NRBC Auto 0.0 /100 WBC (0.0-0.2); Platelet Count 199 K/mm3 (150-400); RDW Coefficient Variation 16.8 % (11.7-14.2); RDW Standard Deviation 52.9 fL (35.1-46.3)
[2024-11-19 06:40] LABS: Alanine Aminotransfer (ALT/SGP 11.0 U/L (12-78); Albumin, Blood 2.1 g/dL (3.4-5.0); Albumin/Globulin Ratio 0.6 (0.8-1.8); Anion Gap 6.0 mmol/L (3-11); Aspartate Aminotrans (AST/SGOT 9.0 U/L (12-37); Bilirubin, Total 0.3 mg/dL (0.1-1.0); Blood Urea Nitrogen 26.0 mg/dL (8-24); CO2, Blood 28.0 mmol/L (21-32); Calcium, Blood 8.0 mg/dL (8.5-10.1); Chloride, Blood 106.0 mmol/L (98-108); Creatinine, Blood 1.36 mg/dL (0.60-1.20); Globulin, Blood 3.8 g/dL (2.2-4.0); Glucose, Blood 139.0 mg/dL (70-99); Magnesium, Blood 2.1 mg/dL (1.6-2.4); Potassium, Blood 3.7 mmol/L (3.5-5.5); Sodium, Blood 136.0 mmol/L (136-145); Total Protein, Blood 5.9 g/dL (6.4-8.2)
[2024-11-19 07:20] VITALS: BP 160/63
[2024-11-19 12:31] VITALS: BP 167/62
[2024-11-19] MEDS ORDERED: JARDIANCE10 MG PO (12:49)
--- NOTE | 2024-11-19 15:01 | NUR ---
RN NOTE MR WILHELM IS ORIENTATED X4. [place]. HE IS KNOWLEDGABLE ABOUT HIS CARE. ON TELEMETRY IN , IST DEGREE AVB. NO CALLS FROM INSTANT POTATO PROCESSING SUPERVISOR TODAY. HE HAS TURNED IN THE BED Q2HRS. COCCYX MEPILEX C,D,I. REDNESS TO SCROTUM LOOKS MUCH DECREASED TODAY. GIVEN BATH AND REED CARE. DRESSED IN OWN CLOTHES. VERBAL AND WRITTEN DISCHARGE INSTRUCTIONS GIVEN TO PT AND HIS SON, BOTH VERBALISED UNDERSTANDING. SON HAS PICKED UP THE PRESCRIPTIONS ALREADY AND KNOWS TO EXPECT HIS FATHER HOME. SAFE RIDE CALLED AND WHEELCHAIR RIDE BOOKED FOR 1523HRS.
[2024-11-19 15:39] VITALS: BP 152/67
--- NOTE | 2024-11-19 15:43 | NUR ---
PIV AND TELEMETRY REMOVED. NEETA LIFTED INTO PTS OWN WHEELCHAIR FOR EXPECTED RIDE TIME OF 1523. CALLING HERBIE TORRES FOR TIME UPDATE.
--- NOTE | 2024-11-19 16:09 | NUR ---
TRANSPORT TIME CHANGED BY COMPANY TO 1750HRS. PT BACK INTO BED FOR PRESSURE RELIEF ON HIS SIDE WHILE WAITING.
--- NOTE | 2024-11-19 17:47 | NUR ---
RIDE TIME IS SUPPOSED TO BE AT 1750HRS WITH TELEPHONE CALL 20 MINUTES AHEAD OF TIME TO CONFIRM. NO CALL RECEIVED. CALL PLACED TO THE COMPANY X2 AND CALL WAS CUT OFF BY COMPANY TWICE.
--- NOTE | 2024-11-19 19:16 | NUR ---
DISCHARGED AT 1820HRS. ESCORTED DOWN TO W/C TRANSPORT IN OWN WHEELCHAIR. NO NEW QUESTIONS OR CONCERNS PRIOR TO DISCHARGE.
== END 2024-11-19 18:20 | disposition home health service (06) | DRG 872 ==
LOC: ER 12:33 → MEDS 12:34 → ER 12:34 → MEDS 12:34
PROVIDERS: Physician Assistant; Student in an Organized Health Care Education/Training Program; ADMIT Student in an Organized Health Care Education/Training Program
DX: A41.9 Sepsis, unspecified organism (principal); I13.0 Hypertensive heart and chronic kidney disease with heart failure and stage 1 through stage 4 chronic kidney disease, or unspecified chronic kidney disease; I50.32 Chronic diastolic (congestive) heart failure; E87.1 Hypo-osmolality and hyponatremia; N39.0 Urinary tract infection, site not specified; N17.9 Acute kidney failure, unspecified; E11.22 Type 2 diabetes mellitus with diabetic chronic kidney disease; N18.32 Chronic kidney disease, stage 3b; E11.51 Type 2 diabetes mellitus with diabetic peripheral angiopathy without gangrene; I44.0 Atrioventricular block, first degree; E88.09 Other disorders of plasma-protein metabolism, not elsewhere classified; N49.2 Inflammatory disorders of scrotum; N40.0 Benign prostatic hyperplasia without lower urinary tract symptoms; F41.9 Anxiety disorder, unspecified; R07.9 Chest pain, unspecified; L89.152 Pressure ulcer of sacral region, stage 2; R00.1 Bradycardia, unspecified; Z89.511 Acquired absence of right leg below knee; Z86.73 Personal history of transient ischemic attack (TIA), and cerebral infarction without residual deficits; Z74.01 Bed confinement status; Z79.4 Long term (current) use of insulin; Z79.82 Long term (current) use of aspirin; Z79.84 Long term (current) use of oral hypoglycemic drugs; Z79.899 Other long term (current) drug therapy; Z88.8 Allergy status to other drugs, medicaments and biological substances
CPT/HCPCS: 36415; 51702; 71046; 74177; 76870; 80053; 81001; 82947; 83036; 83605; 83690; 83735; 83880; 84443; 84484; 85025; 87040; 87086; 93005; 93010; 96365-59; 96367; 96376; 99285-25; A9270; G0378; J0696; J1815; J2185; J7050; Q9967

== ENCOUNTER → 2024-12-02 | Outpatient (CLI) | payer OTHER ==
[~2024-12-02] MED LIST changes: +PIOG30 PO; +POTCHL20ER PO
[2024-12-02 11:04] LABS: Source, Urine Foley catheter
[2024-12-02 11:14] LABS: Bilirubin, Urine Neg (Neg); Color, Urine Red (P-Yellow); Glucose Qualitative, Urine 4+ (Neg); Ketones, Urine Neg (Neg); Leukocyte Esterase, Urine 3+ (Neg); Protein, Urine 3+ (Neg); Specific Gravity, Urine 1.015 (1.003-1.022); Urobilinogen, Urine NORM (Normal)
[2024-12-02 11:35] LABS: Red Blood Cells, Urine 50-100 /hpf (0-2); White Blood Cells, Urine 25-50 /hpf (0-5)
== END ==
LOC: LAB 10:57 → LAB SHORT 10:57
PROVIDERS: Family Medicine
DX: N39.0 Urinary tract infection, site not specified (principal); N40.1 Benign prostatic hyperplasia with lower urinary tract symptoms
CPT/HCPCS: 81001; 87077; 87086; 87186

== ENCOUNTER 2024-12-13 10:33 | Emergency (ER) | payer OTHER ==
[~2024-12-13] VITALS: Ht 185.4 cm; Wt 103.4 kg
[2024-12-13 11:28] LABS: BASOPHILS ABSOLUTE AUTO 0.04 K/mm3 (0.00-0.23); BASOPHILS PERCENT AUTO 1 % (0-2); EOSINOPHILS ABSOLUTE AUTO 0.34 K/mm3 (0.00-0.68); EOSINOPHILS PERCENT AUTO 5 % (0-6); Hematocrit 43.8 % (37.0-53.0); Hemoglobin 13.9 g/dL (13.5-17.5); IMMATURE GRAN ABSOLUTE AUTO 0.04 K/mm3 (0.00-0.10); IMMATURE GRAN PERCENT AUTO 1 % (0-1); LYMPHOCYTES ABSOLUTE AUTO 1.61 K/mm3 (0.84-5.20); LYMPHOCYTES PERCENT AUTO 22 % (21-46); MONOCYTES ABSOLUTE AUTO 0.53 K/mm3 (0.16-1.47); MONOCYTES PERCENT AUTO 7 % (4-13); Mean Corpuscular HGB Conc 31.7 g/dL (31.5-36.5); Mean Corpuscular Volume 86 fL (80-100); NEUTROPHILS ABSOLUTE AUTO 4.87 K/mm3 (1.96-9.15); NEUTROPHILS PERCENT AUTO 66 % (41-73); NRBC ABSOLUTE 0.00 K/mm3 (0.00-0.02); NRBC Auto 0.0 /100 WBC (0.0-0.2); Platelet Count 203 K/mm3 (150-400); RDW Coefficient Variation 17.7 % (11.7-14.2); RDW Standard Deviation 56.3 fL (35.1-46.3)
[2024-12-13 11:41] LABS: Source, Urine Clean Catch
[2024-12-13 11:53] LABS: Bilirubin, Urine Neg (Neg); Glucose Qualitative, Urine 3+ (Neg); Ketones, Urine Neg (Neg); Leukocyte Esterase, Urine 2+ (Neg); Protein, Urine 2+ (Neg); Specific Gravity, Urine 1.005 (1.003-1.022); Urobilinogen, Urine NORM (Normal)
[2024-12-13 11:54] LABS: Alanine Aminotransfer (ALT/SGP 13.0 U/L (12-78); Albumin, Blood 2.7 g/dL (3.4-5.0); Albumin/Globulin Ratio 0.7 (0.8-1.8); Anion Gap 8.0 mmol/L (3-11); Aspartate Aminotrans (AST/SGOT 11.0 U/L (12-37); Bilirubin, Total 0.3 mg/dL (0.1-1.0); Blood Urea Nitrogen 28.0 mg/dL (8-24); CO2, Blood 28.0 mmol/L (21-32); Calcium, Blood 8.4 mg/dL (8.5-10.1); Chloride, Blood 104.0 mmol/L (98-108); Creatinine, Blood 1.47 mg/dL (0.60-1.20); Globulin, Blood 4.1 g/dL (2.2-4.0); Glucose, Blood 124.0 mg/dL (70-99); Potassium, Blood 3.5 mmol/L (3.5-5.5); Sodium, Blood 136.0 mmol/L (136-145); Total Protein, Blood 6.8 g/dL (6.4-8.2)
[2024-12-13 12:00] LABS: Color, Urine Pale Yellow (P-Yellow)
[2024-12-13 12:08] LABS: Yeast/Fungi Urine Many /hpf
[2024-12-13] MEDS ORDERED: PHENobarbital Sodium 65MG / ML 1ML Vial IV ONE (12:25)
[2024-12-13] MEDS ORDERED: DOXY100 PO (12:26)
[2024-12-13 13:45] VITALS: BP 156/62
== END 2024-12-13 14:01 | disposition home or self-care (01) ==
LOC: ER 10:33
PROVIDERS: Emergency Medicine
DX: N49.2 Inflammatory disorders of scrotum (principal); T83.021A Displacement of indwelling urethral catheter, initial encounter; Y84.6 Urinary catheterization as the cause of abnormal reaction of the patient, or of later complication, without mention of misadventure at the time of the procedure; N39.0 Urinary tract infection, site not specified; I13.0 Hypertensive heart and chronic kidney disease with heart failure and stage 1 through stage 4 chronic kidney disease, or unspecified chronic kidney disease; I50.30 Unspecified diastolic (congestive) heart failure; E11.22 Type 2 diabetes mellitus with diabetic chronic kidney disease; N18.32 Chronic kidney disease, stage 3b; N40.1 Benign prostatic hyperplasia with lower urinary tract symptoms; N13.8 Other obstructive and reflux uropathy; E11.51 Type 2 diabetes mellitus with diabetic peripheral angiopathy without gangrene; Z88.8 Allergy status to other drugs, medicaments and biological substances; Z79.4 Long term (current) use of insulin; Z79.82 Long term (current) use of aspirin; Z79.899 Other long term (current) drug therapy
CPT/HCPCS: 36415; 51702; 71045; 72193; 80053; 81001; 83605; 85025; 87040; 87077; 87086; 87186; 99284-25; A9270; Q9967

== ENCOUNTER → 2025-01-06 | Outpatient (CLI) | payer OTHER ==
[2025-01-06 10:20] LABS: Source, Urine Condom Cath
[2025-01-06 10:34] LABS: Bilirubin, Urine Neg (Neg); Color, Urine Yellow (P-Yellow); Glucose Qualitative, Urine 4+ (Neg); Ketones, Urine Neg (Neg); Leukocyte Esterase, Urine 3+ (Neg); Protein, Urine 4+ (Neg); Specific Gravity, Urine 1.025 (1.003-1.022); Urobilinogen, Urine NORM (Normal)
[2025-01-06 10:44] LABS: Anion Gap 8 mmol/L (3-11); Blood Urea Nitrogen 27 mg/dL (8-24); CO2, Blood 27 mmol/L (21-32); Calcium, Blood 8.0 mg/dL (8.5-10.1); Chloride, Blood 107 mmol/L (98-108); Creatinine, Blood 1.33 mg/dL (0.60-1.20); Ethanol (Alcohol), Blood, Med <3 mg/dL; Glucose, Blood 119 mg/dL (70-99); Potassium, Blood 3.5 mmol/L (3.5-5.5); Sodium, Blood 138 mmol/L (136-145)
[2025-01-06 10:48] LABS: White Blood Cells, Urine 50-100 /hpf (0-5); Yeast/Fungi Urine Many /hpf
== END | disposition home or self-care (01) ==
LOC: LAB SHORT 10:16 → LAB 10:16
PROVIDERS: Family Medicine
DX: E11.9 Type 2 diabetes mellitus without complications (principal); Z79.4 Long term (current) use of insulin
CPT/HCPCS: 80048; 80320; 81001; 82043

== ENCOUNTER 2025-02-08 16:43 | Inpatient (IN) | payer OTHER ==
[~2025-02-08] VITALS: Ht 177.8 cm; Wt 113.4 kg
[~2025-02-08 16:43] MED LIST changes: -ASPI325EC PO; -CALCIUM 600 MG1 EA18 PO; -CALCIUM CARBON500 M1 PO; -CALCIUM PO; -DEXCOM G7 SENS1 EACH MC; -[UNRECOGNIZED DRUG - OTHER] PO
[2025-02-08] MEDS ORDERED: Ketorolac Tromethamine 30mg Vial IV ONE (17:45)
[2025-02-08 18:33] LABS: BASOPHILS ABSOLUTE AUTO 0.03 K/mm3 (0.00-0.23); BASOPHILS PERCENT AUTO 0 % (0-2); EOSINOPHILS ABSOLUTE AUTO 0.42 K/mm3 (0.00-0.68); EOSINOPHILS PERCENT AUTO 5 % (0-6); Hematocrit 49.4 % (37.0-53.0); Hemoglobin 15.8 g/dL (13.5-17.5); IMMATURE GRAN ABSOLUTE AUTO 0.04 K/mm3 (0.00-0.10); IMMATURE GRAN PERCENT AUTO 0 % (0-1); LYMPHOCYTES ABSOLUTE AUTO 2.27 K/mm3 (0.84-5.20); LYMPHOCYTES PERCENT AUTO 25 % (21-46); MONOCYTES ABSOLUTE AUTO 0.77 K/mm3 (0.16-1.47); MONOCYTES PERCENT AUTO 8 % (4-13); Mean Corpuscular HGB Conc 32.0 g/dL (31.5-36.5); Mean Corpuscular Volume 87 fL (80-100); NEUTROPHILS ABSOLUTE AUTO 5.68 K/mm3 (1.96-9.15); NEUTROPHILS PERCENT AUTO 62 % (41-73); NRBC ABSOLUTE 0.00 K/mm3 (0.00-0.02); NRBC Auto 0.0 /100 WBC (0.0-0.2); Platelet Count 172 K/mm3 (150-400); RDW Coefficient Variation 15.2 % (11.7-14.2); RDW Standard Deviation 48.4 fL (35.1-46.3)
[2025-02-08] MEDS ORDERED: [UNRECOGNIZED DRUG - OTHER] PO (18:42)
[2025-02-08] MEDS ORDERED: CALCIUM PO (18:42)
[2025-02-08 18:52] LABS: Source, Urine Foley catheter
[2025-02-08 18:57] LABS: Bilirubin, Urine Neg (Neg); Glucose Qualitative, Urine 4+ (Neg); Ketones, Urine Neg (Neg); Leukocyte Esterase, Urine 2+ (Neg); Protein, Urine 3+ (Neg); Specific Gravity, Urine 1.015 (1.003-1.022); Urobilinogen, Urine NORM (Normal)
[2025-02-08 19:03] LABS: C-REACTIVE PROTEIN, EXT RANGE 0.647 mg/dL (0.000-0.300); Magnesium, Blood 2.1 mg/dL (1.6-2.4)
[2025-02-08 19:04] LABS: Color, Urine Pale Yellow (P-Yellow)
[2025-02-08 19:06] LABS: Alanine Aminotransfer (ALT/SGP 14.0 U/L (12-78); Albumin, Blood 2.9 g/dL (3.4-5.0); Albumin/Globulin Ratio 0.8 (0.8-1.8); Anion Gap 6.0 mmol/L (3-11); Aspartate Aminotrans (AST/SGOT 13.0 U/L (12-37); Bilirubin, Total 0.3 mg/dL (0.1-1.0); Blood Urea Nitrogen 27.0 mg/dL (8-24); CO2, Blood 27.0 mmol/L (21-32); Calcium, Blood 9.1 mg/dL (8.5-10.1); Chloride, Blood 106.0 mmol/L (98-108); Creatinine, Blood 1.27 mg/dL (0.60-1.20); Globulin, Blood 3.8 g/dL (2.2-4.0); Glucose, Blood 150.0 mg/dL (70-99); Potassium, Blood 3.7 mmol/L (3.5-5.5); Sodium, Blood 135.0 mmol/L (136-145); Total Protein, Blood 6.7 g/dL (6.4-8.2)
[2025-02-08 19:07] LABS: Red Blood Cells, Urine 0-2 /hpf (0-2)
[2025-02-08] MEDS ORDERED: Doxycycline Hyclate 200 MG in Dextrose 5% 500 ML IV ONE (20:55)
[2025-02-08] MEDS ORDERED: Morphine Sulfate 4 MG/1 ML Injection IV ONE (21:00)
[2025-02-08] MEDS ORDERED: Lidocaine HCl 4% Cream 5 GM TOP ONE (21:00)
[2025-02-08] MEDS ORDERED: FLU VACC TS2025-26(6MOS UP)/PF 45 MCG/0.5 ML SYRINGE IM ONE (22:00)
[2025-02-08] MEDS ORDERED: Polyethylene Glycol 3350 17 gm PO PRN (22:45)
[2025-02-08] MEDS ORDERED: CALCIUM CARBON500 M1 PO (22:46)
[2025-02-08] MEDS ORDERED: Insulin Glargine-Yfgn 100 Unit/mL 3 ML SYR SC SCH (23:00)
[2025-02-09 00:18] VITALS: BP 171/92
[2025-02-09] MEDS ORDERED: NS 250 ML IV PRN (01:10)
[2025-02-09 03:43] VITALS: BP 176/68
[2025-02-09 05:14] LABS: BASOPHILS ABSOLUTE AUTO 0.04 K/mm3 (0.00-0.23); BASOPHILS PERCENT AUTO 0 % (0-2); EOSINOPHILS ABSOLUTE AUTO 0.47 K/mm3 (0.00-0.68); EOSINOPHILS PERCENT AUTO 5 % (0-6); Hematocrit 46.9 % (37.0-53.0); Hemoglobin 15.1 g/dL (13.5-17.5); IMMATURE GRAN ABSOLUTE AUTO 0.07 K/mm3 (0.00-0.10); IMMATURE GRAN PERCENT AUTO 1 % (0-1); LYMPHOCYTES ABSOLUTE AUTO 2.21 K/mm3 (0.84-5.20); LYMPHOCYTES PERCENT AUTO 24 % (21-46); MONOCYTES ABSOLUTE AUTO 0.87 K/mm3 (0.16-1.47); MONOCYTES PERCENT AUTO 10 % (4-13); Mean Corpuscular HGB Conc 32.2 g/dL (31.5-36.5); Mean Corpuscular Volume 87 fL (80-100); NEUTROPHILS ABSOLUTE AUTO 5.51 K/mm3 (1.96-9.15); NEUTROPHILS PERCENT AUTO 60 % (41-73); NRBC ABSOLUTE 0.00 K/mm3 (0.00-0.02); NRBC Auto 0.0 /100 WBC (0.0-0.2); Platelet Count 187 K/mm3 (150-400); RDW Coefficient Variation 15.2 % (11.7-14.2); RDW Standard Deviation 48.6 fL (35.1-46.3)
--- NOTE | 2025-02-09 05:44 | NUR ---
SHIFT SUMMARY 84 YR M ADMITTED TO MEDICAL FLOOR THIS SHIFT. FULL CODE. HE IS A&O X 4 AND PLEASANT, COOPERATIVE WITH CARE. HE HAS A RIGHT BKA AND IS BEDREST AT THIS TIME. CHRONIC REED IS PATENT AND DRAINING WELL. PT WAS GIVEN A BED BATH BY LUIS ENRIQUE AND WAS VERY APPRECIATIVE. HE HAS A LARGE STAGE 2 PRESSURE ULCER ON HIS COCCYX WHICH WAS CLEANED AND A MEPILEX WAS APPLIED FOR PROTECTION AND COMFORT. PICS IN CHART. PT STATES HE LIVES WITH HIS SON AND HAS A COUPLE OF HOME CARE NURSES BUT HE STATES THEY ARE OUT WITH INJURIES AT THIS TIME. PER NJOY, PT IS RUNNING SR @ 82 W/ PVC'S. NJOY ALSO REPORTED THAT PT HAD A ONE-TIME 8 SECOND PAUSE THEN WENT BACK INTO NSR. HE IS CURRENTLY6 IN ISO:CONTACT FOR ESBL IN THE URINE. BED IS IN LOW POSITION AND CALL LIGHT IN REACH.
[2025-02-09 05:58] LABS: Alanine Aminotransfer (ALT/SGP 13.0 U/L (12-78); Albumin, Blood 2.7 g/dL (3.4-5.0); Albumin/Globulin Ratio 0.8 (0.8-1.8); Anion Gap 7.0 mmol/L (3-11); Aspartate Aminotrans (AST/SGOT 12.0 U/L (12-37); Bilirubin, Total 0.3 mg/dL (0.1-1.0); Blood Urea Nitrogen 25.0 mg/dL (8-24); CO2, Blood 27.0 mmol/L (21-32); Calcium, Blood 8.6 mg/dL (8.5-10.1); Chloride, Blood 104.0 mmol/L (98-108); Creatinine, Blood 1.27 mg/dL (0.60-1.20); Globulin, Blood 3.3 g/dL (2.2-4.0); Glucose, Blood 179.0 mg/dL (70-99); Potassium, Blood 3.3 mmol/L (3.5-5.5); Sodium, Blood 135.0 mmol/L (136-145); Total Protein, Blood 6.0 g/dL (6.4-8.2)
[2025-02-09] MEDS ORDERED: Insulin Human Lispro 100 Units/ML 3ML Syringe SC SCH (07:30)
[2025-02-09 07:48] VITALS: BP 165/68
[2025-02-09] MEDS ORDERED: Lactobacil 2-S.Thermo-Bifido 1 1 Cap PO SCH (09:00)
[2025-02-09] MEDS ORDERED: Miconazole Nitrate 2% Talc Free PWD 71GM TOP SCH (09:00)
[2025-02-09] MEDS ORDERED: Enoxaparin 40 MG/0.4 ML SYR SC SCH (09:00)
[2025-02-09] MEDS ORDERED: Miconazole Nitrate 2% 85 GM PWD TOP SCH ×2 (09:53→21:00)
[2025-02-09] MEDS ORDERED: Lidocaine HCl 4% Cream 5 GM TOP PRN (11:40)
[2025-02-09 16:25] VITALS: BP 147/66
--- NOTE | 2025-02-09 16:59 | NUR ---
SHIFT SUMMARY PT A/Ox4, ABLE TO MAKE NEEDS KNOWN AND CALLS APPROPRIATELY. PT DENIES PAIN OR ACUTE DISTRESS. REED PATENT AND DRAINING CLEAR YELLOW URINE TO GRAVITY. PT HAD SMALL BM TODAY ADMINISTRATION OF BOWEL CARE. PT DENIES PAIN BESIDES SCROUM DISCOMFORT - LIDOCAINE CREAM AVAILABLE PRN. CBG AC/HS - INSULIN ADMINISTERED PER SLIDING SCALE. PT CURRENTLY RESTING IN BED WITH BED IN LOWEST POSITION AND CALL LIGHT IN REACH. PT APPEARS COMFORTABLE IN BED WITH NO APPARENT DISTRESS. NO ACUTE CHANGES. DRESSING TO COCCYYX CHANGED TODAY PER ORDERS.
[2025-02-09] MEDS ORDERED: ASPI325EC PO (17:24)
[2025-02-09] MEDS ORDERED: ASPI81CH PO (18:23)
[2025-02-09] MEDS ORDERED: CALCIUM 600 MG1 EA18 PO (18:25)
[2025-02-09] MEDS ORDERED: DEXCOM G7 SENS1 EACH MC (18:27)
[2025-02-09 20:17] VITALS: BP 150/66
[2025-02-09] MEDS ORDERED: Insulin Glargine 100 Unit/ML 3 ML SYR SC SCH (21:00)
[2025-02-10 04:55] VITALS: BP 127/65
[2025-02-10 05:10] LABS: BASOPHILS ABSOLUTE AUTO 0.03 K/mm3 (0.00-0.23); BASOPHILS PERCENT AUTO 0 % (0-2); EOSINOPHILS ABSOLUTE AUTO 0.38 K/mm3 (0.00-0.68); EOSINOPHILS PERCENT AUTO 5 % (0-6); Hematocrit 47.0 % (37.0-53.0); Hemoglobin 14.8 g/dL (13.5-17.5); IMMATURE GRAN ABSOLUTE AUTO 0.06 K/mm3 (0.00-0.10); IMMATURE GRAN PERCENT AUTO 1 % (0-1); LYMPHOCYTES ABSOLUTE AUTO 1.98 K/mm3 (0.84-5.20); LYMPHOCYTES PERCENT AUTO 25 % (21-46); MONOCYTES ABSOLUTE AUTO 0.73 K/mm3 (0.16-1.47); MONOCYTES PERCENT AUTO 9 % (4-13); Mean Corpuscular HGB Conc 31.5 g/dL (31.5-36.5); Mean Corpuscular Volume 88 fL (80-100); NEUTROPHILS ABSOLUTE AUTO 4.69 K/mm3 (1.96-9.15); NEUTROPHILS PERCENT AUTO 60 % (41-73); NRBC ABSOLUTE 0.00 K/mm3 (0.00-0.02); NRBC Auto 0.0 /100 WBC (0.0-0.2); Platelet Count 192 K/mm3 (150-400); RDW Coefficient Variation 15.2 % (11.7-14.2); RDW Standard Deviation 49.1 fL (35.1-46.3)
[2025-02-10 05:57] LABS: Alanine Aminotransfer (ALT/SGP 12.0 U/L (12-78); Albumin, Blood 2.7 g/dL (3.4-5.0); Albumin/Globulin Ratio 0.8 (0.8-1.8); Anion Gap 7.0 mmol/L (3-11); Aspartate Aminotrans (AST/SGOT 9.0 U/L (12-37); Bilirubin, Total 0.3 mg/dL (0.1-1.0); Blood Urea Nitrogen 29.0 mg/dL (8-24); CO2, Blood 27.0 mmol/L (21-32); Calcium, Blood 8.7 mg/dL (8.5-10.1); Chloride, Blood 105.0 mmol/L (98-108); Creatinine, Blood 1.51 mg/dL (0.60-1.20); Globulin, Blood 3.5 g/dL (2.2-4.0); Glucose, Blood 129.0 mg/dL (70-99); Potassium, Blood 3.6 mmol/L (3.5-5.5); Sodium, Blood 135.0 mmol/L (136-145); Total Protein, Blood 6.2 g/dL (6.4-8.2)
[2025-02-10 07:41] VITALS: BP 161/64
--- NOTE | 2025-02-10 16:26 | NUR ---
SHIFT SUMMARY PT AOX3/4, COOPERATIVE, ABLE TO MAKE NEEDS KONWN. PT IS IN ISO FOR ESBL OF URINE. REED CATH PATENT AND DRAINING TO GRAVITY. TOLERATING MEDICATIONS ONE AT A TIME WITH FLUIDS. ON ROOM AIR, NO TELE. BEDREST, LIFT PT. R BKA. NO OTHER ACUTE EVENTS TOOK PLACE THIS SHIFT. BED IN LOWEST POSITION, CALL LIGHT WITHIN REACH.
[2025-02-10 16:31] VITALS: BP 152/63
[2025-02-10 20:30] VITALS: BP 156/77
[2025-02-11 03:45] VITALS: BP 167/66
[2025-02-11 05:11] LABS: BASOPHILS ABSOLUTE AUTO 0.02 K/mm3 (0.00-0.23); BASOPHILS PERCENT AUTO 0 % (0-2); EOSINOPHILS ABSOLUTE AUTO 0.44 K/mm3 (0.00-0.68); EOSINOPHILS PERCENT AUTO 5 % (0-6); Hematocrit 44.2 % (37.0-53.0); Hemoglobin 14.3 g/dL (13.5-17.5); IMMATURE GRAN ABSOLUTE AUTO 0.05 K/mm3 (0.00-0.10); IMMATURE GRAN PERCENT AUTO 1 % (0-1); LYMPHOCYTES ABSOLUTE AUTO 2.05 K/mm3 (0.84-5.20); LYMPHOCYTES PERCENT AUTO 23 % (21-46); MONOCYTES ABSOLUTE AUTO 0.85 K/mm3 (0.16-1.47); MONOCYTES PERCENT AUTO 10 % (4-13); Mean Corpuscular HGB Conc 32.4 g/dL (31.5-36.5); Mean Corpuscular Volume 89 fL (80-100); NEUTROPHILS ABSOLUTE AUTO 5.56 K/mm3 (1.96-9.15); NEUTROPHILS PERCENT AUTO 62 % (41-73); NRBC ABSOLUTE 0.00 K/mm3 (0.00-0.02); NRBC Auto 0.0 /100 WBC (0.0-0.2); Platelet Count 192 K/mm3 (150-400); RDW Coefficient Variation 15.4 % (11.7-14.2); RDW Standard Deviation 50.4 fL (35.1-46.3)
[2025-02-11 05:58] LABS: Alanine Aminotransfer (ALT/SGP 11.0 U/L (12-78); Albumin, Blood 2.7 g/dL (3.4-5.0); Albumin/Globulin Ratio 0.9 (0.8-1.8); Anion Gap 7.0 mmol/L (3-11); Aspartate Aminotrans (AST/SGOT 11.0 U/L (12-37); Bilirubin, Total 0.4 mg/dL (0.1-1.0); Blood Urea Nitrogen 28.0 mg/dL (8-24); CO2, Blood 26.0 mmol/L (21-32); Calcium, Blood 8.6 mg/dL (8.5-10.1); Chloride, Blood 106.0 mmol/L (98-108); Creatinine, Blood 1.36 mg/dL (0.60-1.20); Globulin, Blood 3.0 g/dL (2.2-4.0); Glucose, Blood 150.0 mg/dL (70-99); Potassium, Blood 3.7 mmol/L (3.5-5.5); Sodium, Blood 135.0 mmol/L (136-145); Total Protein, Blood 5.7 g/dL (6.4-8.2)
--- NOTE | 2025-02-11 06:27 | NUR ---
SHIFT SUMMARY PT A&Ox4 AND PLEASANT. VERY [place]. NO C/O PAIN. IV ABX GIVEN PER EMAR. REPOSITIONED Q2. REED IN PLACE AND DRAINING CLEAR YELLOW URINE. PT ABLE TO SLEEP MOST OF THE NIGHT. BED IN LOWEST POSITION AND CALL LIGHT IN REACH.
[2025-02-11 07:35] VITALS: BP 152/62
[2025-02-11 12:33] VITALS: BP 149/60
[2025-02-11 15:59] VITALS: BP 182/76
[2025-02-11 16:02] VITALS: BP 175/70
--- NOTE | 2025-02-11 17:25 | NUR ---
SHIFT SUMMARY: PATIENT A/OX4, PLEASANT AND COOPERATIVE c CARE. PATIENT DENIES CP/PRESSURE, SOB, N/V AND DIZZINESS. PATIENT HAS GOOD APPETITE, CHRONIC REED, PATENT DRAINING YELLOW URINE TO GRAVITY. BUTTOCKS-STAGE 2 DECU WOUND-MIPELEX DRESSING CHANGED, Q2 TURN. PATIENT RECEIVED IV ABX/SCHEDULED MEDS PER EMAR. VITAL SIGNS REVIEWED. PATIENT WORK c PT THIS AFTERNOON. PATIENT HAS HAD NO COMPLAINTS OR DENIES NEW CONCERN THIS SHIFT. BED IN LOWEST POSITION. CALL LIGHT IN REACH.
[2025-02-11 19:47] VITALS: BP 180/76
[2025-02-12] VITALS (10 sets, daily range): BP systolic 136–202; BP diastolic 59–83
--- NOTE | 2025-02-12 04:11 | NUR ---
SHIFT SUMMARY: PT IS AOX4 AND IS A LIFT PT. PT IS BED/WHEELCHAIR BOUND AT BASE LINE. Q2 REPOSITIONING DONE DUE TO STAGE 2 PRESSURE ULCER ON COCCYX. PT MEDICATED PER EMAR. PT HAS A CHRONIC REED THAT IS DRAINING TO GRAVITY. NO ACUTE CHANGES THIS SHIFT.
[2025-02-12 05:10] LABS: BASOPHILS ABSOLUTE AUTO 0.04 K/mm3 (0.00-0.23); BASOPHILS PERCENT AUTO 1 % (0-2); EOSINOPHILS ABSOLUTE AUTO 0.43 K/mm3 (0.00-0.68); EOSINOPHILS PERCENT AUTO 6 % (0-6); Hematocrit 44.1 % (37.0-53.0); Hemoglobin 13.9 g/dL (13.5-17.5); IMMATURE GRAN ABSOLUTE AUTO 0.05 K/mm3 (0.00-0.10); IMMATURE GRAN PERCENT AUTO 1 % (0-1); LYMPHOCYTES ABSOLUTE AUTO 2.17 K/mm3 (0.84-5.20); LYMPHOCYTES PERCENT AUTO 28 % (21-46); MONOCYTES ABSOLUTE AUTO 0.78 K/mm3 (0.16-1.47); MONOCYTES PERCENT AUTO 10 % (4-13); Mean Corpuscular HGB Conc 31.5 g/dL (31.5-36.5); Mean Corpuscular Volume 88 fL (80-100); NEUTROPHILS ABSOLUTE AUTO 4.39 K/mm3 (1.96-9.15); NEUTROPHILS PERCENT AUTO 56 % (41-73); NRBC ABSOLUTE 0.00 K/mm3 (0.00-0.02); NRBC Auto 0.0 /100 WBC (0.0-0.2); Platelet Count 187 K/mm3 (150-400); RDW Coefficient Variation 15.0 % (11.7-14.2); RDW Standard Deviation 48.3 fL (35.1-46.3)
[2025-02-12 05:41] LABS: Alanine Aminotransfer (ALT/SGP 12.0 U/L (12-78); Albumin, Blood 2.5 g/dL (3.4-5.0); Albumin/Globulin Ratio 0.8 (0.8-1.8); Anion Gap 8.0 mmol/L (3-11); Aspartate Aminotrans (AST/SGOT 11.0 U/L (12-37); Bilirubin, Total 0.3 mg/dL (0.1-1.0); Blood Urea Nitrogen 32.0 mg/dL (8-24); CO2, Blood 26.0 mmol/L (21-32); Calcium, Blood 8.6 mg/dL (8.5-10.1); Chloride, Blood 107.0 mmol/L (98-108); Creatinine, Blood 1.43 mg/dL (0.60-1.20); Globulin, Blood 3.2 g/dL (2.2-4.0); Glucose, Blood 125.0 mg/dL (70-99); Potassium, Blood 3.6 mmol/L (3.5-5.5); Sodium, Blood 137.0 mmol/L (136-145); Total Protein, Blood 5.7 g/dL (6.4-8.2)
--- NOTE | 2025-02-12 18:23 | NUR ---
END OF SHIFT NOTE PATIENT VERY TIRED FROM NO SLEEP THE NIGHT BEFORE. SLEEPING OFF AND ON MOST OF THE DAY. DRESSING CHANGED ON SACRUM AND PICTURES TAKEN, IN CHART. PATIENT HAD SOME HIGH BLOOD PRESSURE READINGS TODAY, MEDICATED PER EMAR AND ORDERS WITH POSITIVE IMPROVEMENT. NO ACUTE CONCERNS, PATIENT RESTING IN BED.
[2025-02-13 04:27] VITALS: BP 130/65
[2025-02-13 04:52] LABS: BASOPHILS ABSOLUTE AUTO 0.04 K/mm3 (0.00-0.23); BASOPHILS PERCENT AUTO 0 % (0-2); EOSINOPHILS ABSOLUTE AUTO 0.53 K/mm3 (0.00-0.68); EOSINOPHILS PERCENT AUTO 6 % (0-6); Hematocrit 47.3 % (37.0-53.0); Hemoglobin 15.1 g/dL (13.5-17.5); IMMATURE GRAN ABSOLUTE AUTO 0.04 K/mm3 (0.00-0.10); IMMATURE GRAN PERCENT AUTO 0 % (0-1); LYMPHOCYTES ABSOLUTE AUTO 2.63 K/mm3 (0.84-5.20); LYMPHOCYTES PERCENT AUTO 29 % (21-46); MONOCYTES ABSOLUTE AUTO 0.80 K/mm3 (0.16-1.47); MONOCYTES PERCENT AUTO 9 % (4-13); Mean Corpuscular HGB Conc 31.9 g/dL (31.5-36.5); Mean Corpuscular Volume 88 fL (80-100); NEUTROPHILS ABSOLUTE AUTO 5.05 K/mm3 (1.96-9.15); NEUTROPHILS PERCENT AUTO 56 % (41-73); NRBC ABSOLUTE 0.00 K/mm3 (0.00-0.02); NRBC Auto 0.0 /100 WBC (0.0-0.2); Platelet Count 204 K/mm3 (150-400); RDW Coefficient Variation 14.9 % (11.7-14.2); RDW Standard Deviation 47.9 fL (35.1-46.3)
[2025-02-13 05:14] LABS: Alanine Aminotransfer (ALT/SGP 16.0 U/L (12-78); Albumin, Blood 2.7 g/dL (3.4-5.0); Albumin/Globulin Ratio 0.8 (0.8-1.8); Anion Gap 7.0 mmol/L (3-11); Aspartate Aminotrans (AST/SGOT 18.0 U/L (12-37); Bilirubin, Total 0.3 mg/dL (0.1-1.0); Blood Urea Nitrogen 29.0 mg/dL (8-24); CO2, Blood 28.0 mmol/L (21-32); Calcium, Blood 8.6 mg/dL (8.5-10.1); Chloride, Blood 107.0 mmol/L (98-108); Creatinine, Blood 1.13 mg/dL (0.60-1.20); Globulin, Blood 3.3 g/dL (2.2-4.0); Glucose, Blood 91.0 mg/dL (70-99); Potassium, Blood 3.5 mmol/L (3.5-5.5); Sodium, Blood 138.0 mmol/L (136-145); Total Protein, Blood 6.0 g/dL (6.4-8.2)
--- NOTE | 2025-02-13 06:26 | NUR ---
TRANSMITTER ENGINEER SUMMARY VSS. ALERT TO QUESTIONS ASKED. TOLERATING MEDS WELL. REPOSITIONED INTERMITTENTLY THROUGHOUT SHIFT. REED DRAINING. HAS BEEN RESTING QUIETLY WITH FEW INTERRUPTIONS. REMAINS ON CONTACT ISOLATION FOR ESBL IN THE URINE. CALL LIGHT IN REACH, RAILS UP X 2 AND BED IN LOW POSITION FOR SAFETY. WILL CONTINUE TO MONITOR.
[2025-02-13 07:35] VITALS: BP 155/68
[2025-02-13 15:52] VITALS: BP 148/70
--- NOTE | 2025-02-13 18:38 | NUR ---
SHIFT SUMMARY; PT A/OX4, AT BEDREST THROUGHOUT THE SHIFT, AND COORPORTIVE WITH CARE. PT MEDICATED PER EMAR. PT'S APPETITE IS WELL TODAY, EATING MOST OF HIS MEALS. PT HAD ONE LARGE BM THIS AFTERNOON. BRIEF AND MEPALEX REPLACED AND PT REPOSITIONED. BED IN LOW POSITION AND CALL LIGHT WITHIN REACH.
--- NOTE | 2025-02-13 18:40 | NUR ---
THIS BLASTING WORKER HAS REVIEWED AND AGREES WITH ALL NOTES AND ASSESSMENTS BY SAUNDRA JACOB.
[2025-02-13 20:19] VITALS: BP 139/58
[2025-02-14 00:12] VITALS: BP 157/56
[2025-02-14 03:50] VITALS: BP 166/70
--- NOTE | 2025-02-14 05:12 | NUR ---
SHIFT SUMMARY: RECIEVED REPORT FROM CANDY ARGUELLO. ASSUMED CARE AT ABOUT MIDNIGHT. PT IS AO TO SELF AND PLACE. PT CALLS FOR ASSISTANCE APPROPRIATELY. DENIES PAIN. REED IN PLACE, PATENT, DRAINING BY GRAVITY. CALL LIGHT IS WITHIN REACH. BED IS LOW AND LOCKED.
[2025-02-14 05:39] LABS: BASOPHILS ABSOLUTE AUTO 0.04 K/mm3 (0.00-0.23); BASOPHILS PERCENT AUTO 1 % (0-2); EOSINOPHILS ABSOLUTE AUTO 0.59 K/mm3 (0.00-0.68); EOSINOPHILS PERCENT AUTO 7 % (0-6); Hematocrit 47.2 % (37.0-53.0); Hemoglobin 15.1 g/dL (13.5-17.5); IMMATURE GRAN ABSOLUTE AUTO 0.03 K/mm3 (0.00-0.10); IMMATURE GRAN PERCENT AUTO 0 % (0-1); LYMPHOCYTES ABSOLUTE AUTO 2.25 K/mm3 (0.84-5.20); LYMPHOCYTES PERCENT AUTO 26 % (21-46); MONOCYTES ABSOLUTE AUTO 0.78 K/mm3 (0.16-1.47); MONOCYTES PERCENT AUTO 9 % (4-13); Mean Corpuscular HGB Conc 32.0 g/dL (31.5-36.5); Mean Corpuscular Volume 88 fL (80-100); NEUTROPHILS ABSOLUTE AUTO 4.97 K/mm3 (1.96-9.15); NEUTROPHILS PERCENT AUTO 57 % (41-73); NRBC ABSOLUTE 0.00 K/mm3 (0.00-0.02); NRBC Auto 0.0 /100 WBC (0.0-0.2); Platelet Count 194 K/mm3 (150-400); RDW Coefficient Variation 15.0 % (11.7-14.2); RDW Standard Deviation 48.3 fL (35.1-46.3)
[2025-02-14 06:14] LABS: Alanine Aminotransfer (ALT/SGP 16.0 U/L (12-78); Albumin, Blood 2.7 g/dL (3.4-5.0); Albumin/Globulin Ratio 0.8 (0.8-1.8); Anion Gap 9.0 mmol/L (3-11); Aspartate Aminotrans (AST/SGOT 13.0 U/L (12-37); Bilirubin, Total 0.3 mg/dL (0.1-1.0); Blood Urea Nitrogen 26.0 mg/dL (8-24); CO2, Blood 25.0 mmol/L (21-32); Calcium, Blood 8.7 mg/dL (8.5-10.1); Chloride, Blood 105.0 mmol/L (98-108); Creatinine, Blood 1.29 mg/dL (0.60-1.20); Globulin, Blood 3.4 g/dL (2.2-4.0); Glucose, Blood 110.0 mg/dL (70-99); Potassium, Blood 3.3 mmol/L (3.5-5.5); Sodium, Blood 136.0 mmol/L (136-145); Total Protein, Blood 6.1 g/dL (6.4-8.2)
[2025-02-14 07:34] VITALS: BP 152/64
[2025-02-14 15:50] VITALS: BP 149/97
--- NOTE | 2025-02-14 17:00 | NUR ---
SHIFT SUMMARY; PT A/OX4, BED REST THROUGHOUT SHIFT, AND PLEASANT. PT MEDICATED PER EMAR. PT'S APPETITE ADEQUATE TODAY. VSS. BED IN LOW POSITION. CALL LIGHT WITHIN REACH.
--- NOTE | 2025-02-14 19:14 | NUR ---
THIS LOAN INTERVIEWER HAS REVIEWED AND AGREES WITH ALL NOTES AND ASSESSMENTS BY SAUNDRA JACOB.
[2025-02-14 20:26] VITALS: BP 171/68
--- NOTE | 2025-02-15 04:03 | NUR ---
SHIFT SUMMARY PT IS A/OX4, ABLE TO MAKE HIS NEEDS KNOWN AND COOPERATIVE WITH CARE. HS B. PT DENIES PAIN AND DISCOMFORT. REED DRAINING YELLOW COLOR URINE. PT ABLE TO ASSIST WITH REPOSITIONING. BED AT THE LOWEST POSITION, CALL LIGHT W/I REACH.
[2025-02-15 04:27] VITALS: BP 153/62
[2025-02-15 04:51] LABS: BASOPHILS ABSOLUTE AUTO 0.03 K/mm3 (0.00-0.23); BASOPHILS PERCENT AUTO 0 % (0-2); EOSINOPHILS ABSOLUTE AUTO 0.51 K/mm3 (0.00-0.68); EOSINOPHILS PERCENT AUTO 7 % (0-6); Hematocrit 44.2 % (37.0-53.0); Hemoglobin 14.0 g/dL (13.5-17.5); IMMATURE GRAN ABSOLUTE AUTO 0.04 K/mm3 (0.00-0.10); IMMATURE GRAN PERCENT AUTO 1 % (0-1); LYMPHOCYTES ABSOLUTE AUTO 2.30 K/mm3 (0.84-5.20); LYMPHOCYTES PERCENT AUTO 30 % (21-46); MONOCYTES ABSOLUTE AUTO 0.79 K/mm3 (0.16-1.47); MONOCYTES PERCENT AUTO 10 % (4-13); Mean Corpuscular HGB Conc 31.7 g/dL (31.5-36.5); Mean Corpuscular Volume 87 fL (80-100); NEUTROPHILS ABSOLUTE AUTO 4.13 K/mm3 (1.96-9.15); NEUTROPHILS PERCENT AUTO 53 % (41-73); NRBC ABSOLUTE 0.00 K/mm3 (0.00-0.02); NRBC Auto 0.0 /100 WBC (0.0-0.2); Platelet Count 181 K/mm3 (150-400); RDW Coefficient Variation 14.8 % (11.7-14.2); RDW Standard Deviation 47.5 fL (35.1-46.3)
[2025-02-15 05:25] LABS: Alanine Aminotransfer (ALT/SGP 15.0 U/L (12-78); Albumin, Blood 2.5 g/dL (3.4-5.0); Albumin/Globulin Ratio 0.8 (0.8-1.8); Anion Gap 8.0 mmol/L (3-11); Aspartate Aminotrans (AST/SGOT 12.0 U/L (12-37); Bilirubin, Total 0.3 mg/dL (0.1-1.0); Blood Urea Nitrogen 27.0 mg/dL (8-24); CO2, Blood 26.0 mmol/L (21-32); Calcium, Blood 8.6 mg/dL (8.5-10.1); Chloride, Blood 105.0 mmol/L (98-108); Creatinine, Blood 1.46 mg/dL (0.60-1.20); Globulin, Blood 3.1 g/dL (2.2-4.0); Glucose, Blood 120.0 mg/dL (70-99); Potassium, Blood 3.4 mmol/L (3.5-5.5); Sodium, Blood 136.0 mmol/L (136-145); Total Protein, Blood 5.6 g/dL (6.4-8.2)
[2025-02-15 08:25] VITALS: BP 160/65
[2025-02-15] MEDS ORDERED: BISA5EC PO (11:28)
[2025-02-15] MEDS ORDERED: LOSA50 PO (11:29)
[2025-02-15] MEDS ORDERED: ANECREAM515 G1 TOP (11:29)
[2025-02-15] MEDS ORDERED: MICONAZOLE NITR85 GM TOP (11:30)
[2025-02-15] MEDS ORDERED: MIRALAX17 GM PO (11:31)
== END 2025-02-15 15:38 | disposition home health service (06) | DRG 699 ==
LOC: ER 16:43 → MEDS 21:57 → ERHOLD 21:57 → MEDS 23:37
PROVIDERS: Student in an Organized Health Care Education/Training Program; ADMIT Student in an Organized Health Care Education/Training Program
PROC: 3E03329 Introduction of Other Anti-infective into Peripheral Vein, Percutaneous Approach (ICD-10-PCS; principal; 2025-02-08)
PROC: 0T2BX0Z Change Drainage Device in Bladder, External Approach (ICD-10-PCS; 2025-02-08)
DX: T83.511A Infection and inflammatory reaction due to indwelling urethral catheter, initial encounter (principal); E44.0 Moderate protein-calorie malnutrition; I13.0 Hypertensive heart and chronic kidney disease with heart failure and stage 1 through stage 4 chronic kidney disease, or unspecified chronic kidney disease; I50.32 Chronic diastolic (congestive) heart failure; L03.315 Cellulitis of perineum; N39.0 Urinary tract infection, site not specified; E11.22 Type 2 diabetes mellitus with diabetic chronic kidney disease; N18.32 Chronic kidney disease, stage 3b; E11.51 Type 2 diabetes mellitus with diabetic peripheral angiopathy without gangrene; F41.9 Anxiety disorder, unspecified; N40.1 Benign prostatic hyperplasia with lower urinary tract symptoms; I44.0 Atrioventricular block, first degree; N13.9 Obstructive and reflux uropathy, unspecified; E11.622 Type 2 diabetes mellitus with other skin ulcer; N49.2 Inflammatory disorders of scrotum; R00.1 Bradycardia, unspecified; K59.00 Constipation, unspecified; F42.4 Excoriation (skin-picking) disorder; L53.8 Other specified erythematous conditions; B96.1 Klebsiella pneumoniae [K. pneumoniae] as the cause of diseases classified elsewhere; L89.152 Pressure ulcer of sacral region, stage 2; B95.61 Methicillin susceptible Staphylococcus aureus infection as the cause of diseases classified elsewhere; N43.3 Hydrocele, unspecified; N50.812 Left testicular pain; N50.811 Right testicular pain; Z68.35 Body mass index [BMI] 35.0-35.9, adult; Z28.21 Immunization not carried out because of patient refusal; Z89.511 Acquired absence of right leg below knee; Z98.890 Other specified postprocedural states; Z86.19 Personal history of other infectious and parasitic diseases; Z88.8 Allergy status to other drugs, medicaments and biological substances; Z79.85 Long-term (current) use of injectable non-insulin antidiabetic drugs; Z79.899 Other long term (current) drug therapy; Z79.82 Long term (current) use of aspirin; Z79.84 Long term (current) use of oral hypoglycemic drugs; Y84.6 Urinary catheterization as the cause of abnormal reaction of the patient, or of later complication, without mention of misadventure at the time of the procedure
CPT/HCPCS: 36415; 74177; 76870; 80053; 81001; 82947; 83605; 83735; 85025; 85651; 86140; 87040; 87077; 87086; 87186; 93005; 93010; 96374-59; 97110; 97162; 97530; 99285-25; A9270; J1650; J1815; J1885; J2185; J2270; J7050; J7060; Q9967

== ENCOUNTER → 2025-02-08 | Outpatient (CLI) | payer OTHER ==
[~2025-02-08] MED LIST changes: +ASPI325EC PO; +CALCIUM 600 MG1 EA18 PO; +CALCIUM CARBON500 M1 PO; +CALCIUM PO; +DEXCOM G7 SENS1 EACH MC; +POTASSIUM CHLORIDE PO; -POTCHL20ER PO; +[UNRECOGNIZED DRUG - OTHER] PO
[2025-02-08 11:42] LABS: Bilirubin, Urine Neg (Neg); Color, Urine Yellow (P-Yellow); Glucose Qualitative, Urine 4+ (Neg); Ketones, Urine Neg (Neg); Leukocyte Esterase, Urine 3+ (Neg); Protein, Urine 4+ (Neg); Specific Gravity, Urine 1.020 (1.003-1.022); Urobilinogen, Urine NORM (Normal)
[2025-02-08 11:52] LABS: White Blood Cells, Urine 50-100 /hpf (0-5)
== END ==
LOC: LAB SHORT 10:51 → LAB 10:51
PROVIDERS: Family Medicine
DX: Z46.6 Encounter for fitting and adjustment of urinary device (principal); L89.312 Pressure ulcer of right buttock, stage 2
CPT/HCPCS: 81001; 87077; 87086; 87147; 87186